=== PATIENT | female | born 1945 | race Caucasian/White ===

== ENCOUNTER 2016-10-22 09:32 | Emergency (ER) | payer MEDICARE ==
[2016-10-22] MEDS ORDERED: MORPHINE SULFATE 10 MG/ML SYRINGE IM STA (10:05)
[2016-10-22] MEDS ORDERED: LIDOCAINE 5% PATCH TOPICAL STA (10:05)
[2016-10-22] MEDS ORDERED: KETOROLAC 30 MG/ML 1 ML VIAL IM STA (10:05)
--- NOTE | 2016-10-22 10:16 | ED ---
Back Pain HPI - General Chief Complaint: Back Pain/Injury Stated Complaint: Lower back pain Time Seen by Provider: 10/22/16 09:57 Source: patient Limitations: no limitations - History of Present Illness Initial Comments: This is a 70-year-old female with a recent right knee surgery who presents emergency department for left lower back pain for the last 9 days. She states that she does not recall any injury. It is worse with any movement. She is follow up with her orthopedic surgeon and primary doctor for this. Her orthopedic surgeon did an x-ray of her back which showed arthritis. He started her on dexamethasone, Percocet, Flexeril and she has not had any relief. She got a cortisone shot yesterday in her primary doctor's office which also has not improved her symptoms. She denies any numbness or tingling or weakness in her extremities. No shooting pains. She states that the pain is located in the left lateral lumbar region and does not radiate. She denies any loss of bowel or bladder function or saddle anesthesia. She denies any other complaints. - Related Data Home Medications Medication Instructions Recorded Confirmed Aspirin 81 mg PO DAILY 06/01/14 10/22/16 Cyanocobalamin [Vitamin B-12] 1,000 mcg PO DAILY 06/01/14 10/22/16 Hydrochlorothiazide [Hydrodiuril] 25 mg PO DAILY 06/01/14 10/22/16 Losartan Potassium 100 mg PO DAILY 06/01/14 10/22/16 Melatonin 3 mg PO HS 06/01/14 10/22/16 Metoprolol Tartrate [Lopressor] 50 mg PO DAILY 06/01/14 10/22/16 Omeprazole 40 mg PO DAILY 06/01/14 10/22/16 Oxybutynin Chloride [Ditropan] 5 mg PO BID 06/01/14 10/22/16 Sertraline [Zoloft] 50 mg PO DAILY 06/01/14 10/22/16 metFORMIN HCL [Glucophage] 500 mg PO DAILY 06/01/14 10/22/16 traZODone HCL [Desyrel] 50 mg PO HS 06/01/14 10/22/16 Cyclobenzaprine [Flexeril] 5 mg PO BID PRN 10/22/16 10/22/16 Dexamethasone 0.75 mg PO BID 10/22/16 10/22/16 Gabapentin [Neurontin] 300 mg PO BID 10/22/16 10/22/16 oxyCODONE-APAP 5-325MG [Percocet 1 tab PO Q4HR PRN 10/22/16 10/22/16 5-325 mg] Previous Rx's Medication Instructions Recorded Lidocaine 5% Patch [Lidoderm] 1 patch TOPICAL DAILY #10 patch 10/22/16 Allergies Allergy/AdvReac Type Severity Reaction Status Date / Time codeine Allergy Nausea Verified 10/22/16 10:44 Review of Systems ROS Statement: Those systems with pertinent positive or pertinent negative responses have been documented in the HPI. ROS Other: All systems not noted in ROS Statement are negative. Past Medical History Past Medical History: Diabetes Mellitus, GERD/Reflux, Hypertension Additional Past Medical History / Comment(s): , SCIATICA History of Any Multi-Drug Resistant Organisms: MRSA Date of last positivie culture/infection: 03/24/2014 MDRO Source:: Face Past Surgical History: Cholecystectomy, Heart Catheterization, Hysterectomy, Joint Replacement, Tonsillectomy Additional Past Surgical History / Comment(s): TOTAL LEFT KNEE, CARPAL TUNNEL RASHID, BONE REPLACEMENT IN RT WRIST WITH PLATE, LEFT ROTATOR CUFF, CERVICAL NECK SX, ELBOW TENDON SX. BENIGN CYST REMOVED RASHID ARMS AND RT HAND Past Anesthesia/Blood Transfusion Reactions: No Reported Reaction Past Psychological History: Depression Smoking Status: Never smoker Past Alcohol Use History: None Reported Past Drug Use History: None Reported - Past Family History Mother Family Medical History: Cancer Additional Family Medical History / Comment(s): BREAST General Exam - General Exam Comments Initial Comments: Constitutional: Awake alert Appears comfortable Head: Normocephalic atraumatic Eyes: no conjunctival injection No scleral icterus EOMI Neck: No JVD Supple Heart: Regular rate rhythm normal S1-S2 no murmurs Lungs: Clear to auscultation bilaterally No wheezing No rales Abdomen: Soft nondistended nontender Extremities: Non edematous DP pulses intact Radial pulses intact, there is tenderness to palpation in the left lateral lumbar area near the SI joint. No midline tenderness Neuro: A&Ox3 No focal neurologic deficits, 5 out of 5 strength in upper and lower [place] bilaterally specifically with dorsi and plantar flexion of the lower extremities, 2 out of 4 patellar and Achilles reflexes bilaterally, sensation intact to light touch in bilateral lower extremities Psych: Appropriate mood and affect Limitations: no limitations Course Vital Signs 10/22/16 09:43 Temperature 99 F Pulse Rate 69 Respiratory 20 Rate Blood Pressure 147/72 O2 Sat by Pulse 99 Oximetry Medical Decision Making - Medical Decision Making Is a 62-year-old female presents emergency department for low back pain. Computed tomography scan was performed that showed some mild central canal stenosis at L4-L5 with some bilateral foraminal stenosis area and the patient felt improved after medications. There are no emergent neurologic findings on examination. No signs of cauda equina. I'm concerned that the patient may have caused exacerbation of some old low back issues after her knee surgery and walking differently. I feel that she needs physical therapy. She is currently on Percocet, Flexeril, dexamethasone from her primary doctor and the only thing that I would like to add would be Lidoderm patches that she can try. She has an MRI scheduled as an outpatient which she can continue. I told to return if she developed any neurologic symptoms or any worsening symptoms. All questions were answered. Disposition Clinical Impression: Low back pain Disposition: HOME SELF-CARE Condition: Serious Instructions: Acute Low Back Pain (ED) Additional Instructions: Please place the Lidoderm patches on for 12 hours and off for 12 hours. If her insurance does not cover the Lidoderm patches please sweet pickled fruit maker [id number] salon positive patches. Monitor your symptoms for signs of weakness, numbness, trouble with urinating or having bowel movements. Follow up with her primary doctor for physical therapy referral and return if you have worsening symptoms. Prescriptions: Lidocaine 5% Patch [Lidoderm] 1 patch TOPICAL DAILY #10 patch Referrals: Luma Mcconnell DO [Primary Care Provider] - 1-2 days
[2016-10-22] MEDS ORDERED: MORPHINE SULFATE 4 MG/ML SYRINGE IVP STA (10:32)
--- NOTE | 2016-10-22 10:36 | CT ---
EXAMINATION TYPE: CT lumbar spine wo con DATE OF EXAM: 10/22/2016 10:29 AM COMPARISON: NONE HISTORY: Low back pain CT DLP: 565.9 mGycm CONTRAST: Unenhanced CT of the lumbar spine was performed with axial coronal and sagittal images reviewed. Unen hanced CT of the lumbar spine was performed. Bone and soft tissue window settings are submitted as w ell as coronal and sagittal reconstructions. L1-L2: Noted are fusion changes with pedicular screws in place and a decompressive laminectomy noted. Intervertebral body spacers are in place. Streak artifact limits evaluation of this level. L2-L3: Moderate degenerative disc space narrowing. Broad-based posterior disc bulge with encapsulatin g spur resulting in disc endplate complex. Mild effacement ventral thecal sac. No evidence for centra l stenosis. Mild bilateral foraminal encroachment. L3-L4: Mild degenerative disc space narrowing. Mild posterior disc bulge. No evidence for herniation or central stenosis. Foramina are patent. L4-L5: Mild to moderate degenerative disc space narrowing. Grade 1 anterolisthesis L4 and L5 measurin g 5 mm. Circumferential disc bulge with effacement of the ventral thecal sac. There is resultant mild central stenosis. Bilateral foraminal encroachment noted. Facet joint arthropathy seen. No evidence for spondylolysis. L5-S1: Moderate degenerative disc space narrowing.. Broad-based posterior disc bulge. No evidence for disc herniation protrusion or central stenosis. Foramina are patent. No paraspinal masses are identified. Lumbar segments are free of fracture. IMPRESSION: 1. Multilevel degenerative disc disease with central stenosis noted at L4-5. See above.
[2016-10-22] MEDS ORDERED: MORPHINE SULFATE 4 MG/ML SYRINGE IM STA (10:55)
[2016-10-22 11:06] VITALS: BP 135/86; PULSE 83; RESP 18; TEMP 97.8
== END 2016-10-22 11:06 | disposition home or self-care (01) ==
LOC: EC 09:32
DX: M54.5 Low back pain (principal); M48.06 Spinal stenosis, lumbar region; E11.9 Type 2 diabetes mellitus without complications; K21.9 Gastro-esophageal reflux disease without esophagitis; I10 Essential (primary) hypertension; F32.9 Major depressive disorder, single episode, unspecified; Z88.5 Allergy status to narcotic agent; Z79.82 Long term (current) use of aspirin; Z79.899 Other long term (current) drug therapy
CPT/HCPCS: 99284; 96374; 96372 ×2; 72131; J2270; J1885

== ENCOUNTER → 2017-04-22 | Outpatient (CLI) | payer MEDICARE ==
--- NOTE | 2017-04-22 15:46 | US ---
EXAMINATION TYPE: US venous doppler duplex LE RT DATE OF EXAM: 04/22/2017 1:54 PM COMPARISON: 11/17/2015 CLINICAL HISTORY: 71-year-old female I83.11 Varicose veins, M25.561 Pain R leg. SIDE PERFORMED: Right TECHNIQUE: The lower extremity deep venous system is examined utilizing real time linear array sonog lazarus with graded compression, doppler sonography and color-flow sonography. FINDINGS: VESSELS IMAGED: External Iliac Vein (EIV) Common Femoral Vein Deep Femoral Vein Greater Saphenous Vein * Femoral Vein Popliteal Vein Proximal Calf Veins Posterior tibial veins (* superficial vessels) Right Leg: Negative for DVT IMPRESSION: No evidence for DVT within the right lower extremity.
--- NOTE | 2017-04-22 16:00 | US ---
EXAMINATION TYPE: US extremity nonvasc mass RT DATE OF EXAM: 04/22/2017 COMPARISON: NONE CLINICAL HISTORY: 71-year-old female SWELLING. Patient has pain and varicosities right lateral leg. TECHNIQUE: Targeted sonographic examination at the site of pain along the lateral aspect of the right knee and just below the knee. FINDINGS: Targeted scanning shows no evidence for abnormal fluid collection in the superficial soft tissues. Th ere are varicosities just below the knee that are compressible. IMPRESSION: Targeted scanning of the superficial soft tissues lateral aspect of the right knee and just below the knee shows some compressible superficial varicose veins. No abnormal fluid collection.
== END | disposition home or self-care (01) ==
LOC: RADUSWWP 13:13
PROVIDERS: ATTEND Family Medicine
DX: I87.1 Compression of vein (principal); I83.11 Varicose veins of right lower extremity with inflammation

== ENCOUNTER 2018-05-28 06:44 | Day surgery (SDC) | payer MEDICARE ==
[2018-05-26 13:27] VITALS: BMI 28.3
[~2018-05-28 06:44] MED LIST: LACTATED RINGERS 1,000 ML IV SCH; LIDOCAINE 1% 20 ML VIAL (10MG/ML) FOR IV START INTRADERMA PRN
[2018-05-28 07:15] VITALS: TEMP 98.2
[2018-05-28 07:20] LABS: Glucose,Whole Blood 107 mg/dL (75-99)
[2018-05-28] MEDS ORDERED: LACTATED RINGERS 1,000 ML IV ONE ×2 (07:20→08:32)
[2018-05-28] MEDS ORDERED: fentaNYL (PF) 50 MCG/ML 2 ML AMP ONE (07:55)
[2018-05-28] MEDS ORDERED: LIDOCAINE 1% INJ 10MG/ML (20 ML MDV) ONE (07:55)
[2018-05-28] MEDS ORDERED: PROPOFOL 10 MG/ML 20 ML VIAL IV ONE (07:55)
--- NOTE | 2018-05-28 08:35 | P.PCN ---
Date of Procedure: 05/28/18 Procedure(s) Performed: Procedure: Total colonoscopy. Preoperative diagnosis: Screening for neoplasia, patient has history of polyps. Postoperative diagnosis: Exam within normal limits. Preparation: HalfLytely prep. Sedation: Was provided by anesthesia. Brief clinical history: The patient is a 72-year-old female who is scheduled for this evaluation for screening for neoplasia because of history of polyps. The patient had multiple colonoscopies over the years the last was around 3 or 5 years ago. At this time, she has no abdominal complaints, bleeding or anemia. Procedure: With the patient on her left lateral decubitus position and after informed consent and adequate sedation, the perianal area was inspected and it did not show any fissures or fistulas. There were no masses felt on digital rectal examination. The Olympus CFH 190L video colonoscope was then inserted in the rectum in the usual fashion and advanced to the cecum. The preparation was fair with some residual fecal material and fecal debris encountered mostly on the right side and cecum. The mucosa appeared healthy. No obvious polyps or tumors were seen or any obvious diverticular disease. I retroflexed the endoscope in the rectum before the endoscope was withdrawn. The patient tolerated the procedure well. Plan: The patient was reassured. She will follow-up with you as planned and I recommended repeat exam in 5 years.
[2018-05-28 08:41] VITALS: PULSE 53; RESP 18
[2018-05-28 08:52] VITALS: BP 135/80
== END 2018-05-28 09:19 | disposition home or self-care (01) ==
LOC: ORWHC2ENDO 06:44
DX: Z12.11 Encounter for screening for malignant neoplasm of colon (principal); Z86.010 Personal history of colon polyps; E11.9 Type 2 diabetes mellitus without complications; K21.9 Gastro-esophageal reflux disease without esophagitis; I10 Essential (primary) hypertension; Z79.84 Long term (current) use of oral hypoglycemic drugs; Z79.899 Other long term (current) drug therapy; Z88.5 Allergy status to narcotic agent; Z85.828 Personal history of other malignant neoplasm of skin
CPT/HCPCS: J2001; J3010; J2704; G0105

== ENCOUNTER → 2018-08-19 | Outpatient (CLI) | payer MEDICARE ==
--- NOTE | 2018-08-19 12:48 | US ---
EXAMINATION TYPE: US venous doppler duplex LE RT DATE OF EXAM: 08/19/2018 12:34 PM COMPARISON: Right lower extremity venous ultrasound April 22, 2017 CLINICAL HISTORY: Right leg localized swelling R22.41. Pt states right calf pain SIDE PERFORMED: Right TECHNIQUE: The lower extremity deep venous system is examined utilizing real time linear array sonog lazarus with graded compression, doppler sonography and color-flow sonography. VESSELS IMAGED: External Iliac Vein (EIV) Common Femoral Vein Deep Femoral Vein Greater Saphenous Vein * Femoral Vein Popliteal Vein Small Saphenous Vein * Proximal Calf Veins (* superficial vessels) Right Leg: Negative for DVT, complex fluid collection right posterior calf= 7.0 x 2.0 x 3.8 cm Results called to Supriya at Dr's office at time of exam Grayscale, color doppler, spectral doppler imaging performed of the deep veins of the right lower ext remity. There is normal flow, compressibility, vascular waveforms. IMPRESSION: No ultrasound evidence for acute DVT in the right lower extremity. Moderate to large siz e debris-filled popliteal cyst noted towards end of study on current exam.
== END ==
LOC: RADUSWWP 12:14
PROVIDERS: ATTEND Family Medicine
DX: M71.21 Synovial cyst of popliteal space [Baker], right knee (principal)

== ENCOUNTER → 2018-11-19 | Outpatient (CLI) | payer MEDICARE ==
--- NOTE | 2018-11-23 08:39 | MM ---
Reason for exam: screening (asymptomatic). Last mammogram was performed 3 years ago. History: Patient is postmenopausal and has history of other cancer at age 69. Family history of breast cancer in mother at age 60. Took estrogen for 30 years beginning at age 32. Physical Findings: A clinical breast exam by your physician is recommended on an annual basis and results should be correlated with mammographic findings. MG 3D Screening Mammo W/Cad Bilateral CC and MLO view(s) were taken. Prior study comparison: November 09, 2015, bilateral MG 3d screening mammo w/cad. October 25, 2013, bilateral MG screening mammo w CAD. There are scattered fibroglandular densities. No significant changes when compared with prior studies. ASSESSMENT: Benign, BI-RAD 2 RECOMMENDATION: Routine screening mammogram of both breasts in 1 year.
== END | disposition home or self-care (01) ==
LOC: RADMAMWWP 09:38
PROVIDERS: ATTEND Family Medicine
DX: Z12.31 Encounter for screening mammogram for malignant neoplasm of breast (principal)
CPT/HCPCS: 77063; 77067

== ENCOUNTER 2019-01-21 16:23 | Inpatient (IN) | payer MEDICARE ==
[2019-01-21] MEDS ORDERED: SODIUM CHLORIDE 0.9% 1,000 ML IV STA (16:41)
--- NOTE | 2019-01-21 16:50 | ED ---
Dizziness HPI - General Chief Complaint: Dizziness Stated Complaint: Eye Problems,Wobbly Time Seen by Provider: 01/21/19 16:40 Source: patient, RN notes reviewed, old records reviewed Mode of arrival: wheelchair Limitations: no limitations - History of Present Illness Initial Comments: This is a 73-year-old female the ER for evaluation. Patient sent in the ER for evaluation of weakness and unsteadiness. Patient is refusing sent to ER for evaluation. Patient has no headache no recent change in medications denies nausea vomiting diarrhea no fevers. Patient denies weakness or sensation loss. No recent travel history no sick contacts. MD Complaint: dizziness, difficulty walking -: unknown Timing: gradual onset Description: lightheadedness, off-balance, nausea History of Same: No History of Trauma: No Severity: moderate Improves With: remaining still Worsens With: nothing Associated Symptoms: ataxia, weakness - Related Data Home Medications Medication Instructions Recorded Confirmed Aspirin 81 mg PO DAILY 06/01/14 01/21/19 Hydrochlorothiazide [Hydrodiuril] 25 mg PO DAILY 06/01/14 01/21/19 Metoprolol Tartrate [Lopressor] 50 mg PO BID 06/01/14 01/21/19 Oxybutynin Chloride [Ditropan] 5 mg PO BID 06/01/14 01/21/19 Sertraline [Zoloft] 50 mg PO DAILY 06/01/14 01/21/19 metFORMIN HCL [Glucophage] 500 mg PO DAILY 06/01/14 01/21/19 traZODone HCL [Desyrel] 100 mg PO HS 06/01/14 01/21/19 Atorvastatin Calcium [Lipitor] 10 mg PO DAILY 01/21/19 01/21/19 Loteprednol Etabonate [Inveltys] 1 drop BOTH EYES DAILY 01/21/19 01/21/19 Meloxicam [Mobic] 7.5 mg PO DAILY 01/21/19 01/21/19 Olmesartan Medoxomil [Benicar] 40 mg PO DAILY 01/21/19 01/21/19 Ranitidine HCl [Zantac] 150 mg PO DAILY 01/21/19 01/21/19 Allergies Allergy/AdvReac Type Severity Reaction Status Date / Time codeine AdvReac Nausea Verified 01/21/19 18:09 Review of Systems ROS Statement: Those systems with pertinent positive or pertinent negative responses have been documented in the HPI. ROS Other: All systems not noted in ROS Statement are negative. Past Medical History Past Medical History: Cancer, Diabetes Mellitus, GERD/Reflux, Hypertension Additional Past Medical History / Comment(s): rectal itching,SCIATICA,basal cell CA nose History of Any Multi-Drug Resistant Organisms: MRSA Date of last positivie culture/infection: 03/24/2014 MDRO Source:: Face Past Surgical History: Cholecystectomy, Heart Catheterization, Hysterectomy, Joint Replacement, Tonsillectomy Additional Past Surgical History / Comment(s): Rt shoulder rot cuff 48-43-53-ORIF upper rt arm,TOTAL LEFT KNEE, CARPAL TUNNEL RASHID, BONE REPLACEMENT IN RT WRIST WITH PLATE, LEFT ROTATOR CUFF, CERVICAL NECK SX, ELBOW TENDON SX. BENIGN CYST REMOVED RASHID ARMS AND RT HAND Past Anesthesia/Blood Transfusion Reactions: No Reported Reaction Past Psychological History: Depression Smoking Status: Never smoker Past Alcohol Use History: None Reported Past Drug Use History: None Reported - Past Family History Mother Family Medical History: Cancer Additional Family Medical History / Comment(s): BREAST General Exam - General Exam Comments Initial Comments: NIH of 0 to note nystagmus, heel vizcaino is negative, finger-nose is negative Limitations: no limitations General appearance: alert, in no apparent distress Head exam: Present: atraumatic, normocephalic, normal inspection Eye exam: Present: normal appearance, PERRL, EOMI. Absent: scleral icterus, conjunctival injection, periorbital swelling ENT exam: Present: normal exam, mucous membranes moist Neck exam: Present: normal inspection. Absent: tenderness, meningismus, lymphadenopathy Respiratory exam: Present: normal lung sounds bilaterally. Absent: respiratory distress, wheezes, rales, rhonchi, stridor Cardiovascular Exam: Present: regular rate, normal rhythm, normal heart sounds. Absent: systolic murmur, diastolic murmur, rubs, gallop, clicks GI/Abdominal exam: Present: soft, normal bowel sounds. Absent: distended, tenderness, guarding, rebound, rigid Extremities exam: Present: normal inspection, full ROM, normal capillary refill. Absent: tenderness, pedal edema, joint swelling, calf tenderness Back exam: Present: normal inspection Neurological exam: Present: alert, oriented X3, CN II-XII intact Psychiatric exam: Present: normal affect, normal mood Skin exam: Present: warm, dry, intact, normal color. Absent: rash Course Vital Signs 01/21/19 01/21/19 01/21/19 16:28 17:34 20:08 Temperature 98.0 F Pulse Rate 58 L 60 58 L Respiratory 18 18 18 Rate Blood Pressure 134/72 134/78 128/75 O2 Sat by Pulse 98 97 96 Oximetry - Reevaluation(s) Reevaluation #1: 01/21/19 20:37 Medical records reviewed Reevaluation #2: 01/21/19 20:37 Patient without improvement EKG Findings - EKG Comments: EKG Findings:: EKG shows sinus bradycardia rate of 57, LA 160, QRS 72, QTc 4:30 Medical Decision Making - Medical Decision Making 73 female the ER for evaluation dizziness ataxia unsteady on feet. Patient has normal CT scans here in the ER will admit for continued neurological evaluation and treatment of UTI dehydration low potassium - Lab Data Result diagrams: 01/21/19 17:09 01/21/19 17:09 Lab Results 01/21/19 01/21/19 01/21/19 Range/Units 17:09 17:09 17:09 WBC 8.0 (3.8-10.6) k/uL RBC 4.82 (3.80-5.40) m/uL Hgb 13.7 (11.4-16.0) gm/dL Hct 40.9 (34.0-46.0) % MCV 84.7 (80.0-100.0) fL MCH 28.3 (25.0-35.0) pg MCHC 33.5 (31.0-37.0) g/dL RDW 15.9 H (11.5-15.5) % Plt Count 210 (150-450) k/uL Neutrophils % 70 % Lymphocytes % 19 % Monocytes % 5 % Eosinophils % 4 % Basophils % 0 % Neutrophils # 5.6 (1.3-7.7) k/uL Lymphocytes # 1.5 (1.0-4.8) k/uL Monocytes # 0.4 (0-1.0) k/uL Eosinophils # 0.3 (0-0.7) k/uL Basophils # 0.0 (0-0.2) k/uL PT 9.6 (9.0-12.0) sec INR 0.9 (<1.2) APTT 23.3 (22.0-30.0) sec Sodium 138 (137-145) mmol/L Potassium 3.4 L (3.5-5.1) mmol/L Chloride 98 (98-107) mmol/L Carbon Dioxide 33 H (22-30) mmol/L Anion Gap 7 mmol/L BUN 22 H (7-17) mg/dL Creatinine 0.90 (0.52-1.04) mg/dL Est GFR (CKD-EPI)AfAm 75 (>60 ml/min/1.73 sqM) Est GFR (CKD-EPI)NonAf 65 (>60 ml/min/1.73 sqM) Glucose 109 H (74-99) mg/dL Calcium 9.9 (8.4-10.2) mg/dL Total Bilirubin 0.4 (0.2-1.3) mg/dL AST 30 (14-36) U/L ALT 20 (9-52) U/L Alkaline Phosphatase 65 (38-126) U/L Creatine Kinase 82 (30-135) U/L Troponin I (0.000-0.034) ng/mL Total Protein 7.2 (6.3-8.2) g/dL Albumin 4.2 (3.5-5.0) g/dL Urine Color Urine Appearance (Clear) Urine pH (5.0-8.0) Ur Specific [place] (1.001-1.035) Urine Protein (Negative) Urine Glucose (UA) (Negative) Urine Ketones (Negative) Urine Blood (Negative) Urine Nitrite (Negative) Urine Bilirubin (Negative) Urine Urobilinogen (<2.0) mg/dL Ur Leukocyte Esterase (Negative) Urine RBC (0-5) /hpf Urine WBC (0-5) /hpf Ur Squamous Epith Cells (0-4) /hpf Urine Bacteria (None) /hpf Hyaline Casts (0-2) /lpf Urine Mucus (None) /hpf 01/21/19 01/21/19 Range/Units 17:09 18:02 WBC (3.8-10.6) k/uL RBC (3.80-5.40) m/uL Hgb (11.4-16.0) gm/dL Hct (34.0-46.0) % MCV (80.0-100.0) fL MCH (25.0-35.0) pg MCHC (31.0-37.0) g/dL RDW (11.5-15.5) % Plt Count (150-450) k/uL Neutrophils % % Lymphocytes % % Monocytes % % Eosinophils % % Basophils % % Neutrophils # (1.3-7.7) k/uL Lymphocytes # (1.0-4.8) k/uL Monocytes # (0-1.0) k/uL Eosinophils # (0-0.7) k/uL Basophils # (0-0.2) k/uL PT (9.0-12.0) sec INR (<1.2) APTT (22.0-30.0) sec Sodium (137-145) mmol/L Potassium (3.5-5.1) mmol/L Chloride (98-107) mmol/L Carbon Dioxide (22-30) mmol/L Anion Gap mmol/L BUN (7-17) mg/dL Creatinine (0.52-1.04) mg/dL Est GFR (CKD-EPI)AfAm (>60 ml/min/1.73 sqM) Est GFR (CKD-EPI)NonAf (>60 ml/min/1.73 sqM) Glucose (74-99) mg/dL Calcium (8.4-10.2) mg/dL Total Bilirubin (0.2-1.3) mg/dL AST (14-36) U/L ALT (9-52) U/L Alkaline Phosphatase (38-126) U/L Creatine Kinase (30-135) U/L Troponin I <0.012 (0.000-0.034) ng/mL Total Protein (6.3-8.2) g/dL Albumin (3.5-5.0) g/dL Urine Color Light Yellow Urine Appearance Clear (Clear) Urine pH 7.0 (5.0-8.0) Ur Specific [place] 1.023 (1.001-1.035) Urine Protein Negative (Negative) Urine Glucose (UA) Negative (Negative) Urine Ketones Negative (Negative) Urine Blood Negative (Negative) Urine Nitrite Negative (Negative) Urine Bilirubin Negative (Negative) Urine Urobilinogen <2.0 (<2.0) mg/dL Ur Leukocyte Esterase Large H (Negative) Urine RBC 2 (0-5) /hpf Urine WBC 10 H (0-5) /hpf Ur Squamous Epith Cells <1 (0-4) /hpf Urine Bacteria Rare H (None) /hpf Hyaline Casts 1 (0-2) /lpf Urine Mucus Rare H (None) /hpf - Radiology Data Radiology results: report reviewed (CT brain CTA had not negative for acute disease), image reviewed Disposition Clinical Impression: Dehydration, Dizziness, Ataxia, UTI (urinary tract infection), Hypokalemia Disposition: ADMITTED IP TO THIS [facility] Condition: Good Is patient prescribed a controlled substance at d/c from ED?: No Referrals: Luma Mcconnell DO [Primary Care Provider] - 1-2 days
[2019-01-21 17:27] LABS: Basophils % (A) 0 %; Eosinophils # (A) 0.3 k/uL (0-0.7); Eosinophils % (A) 4 %; HCT 40.9 % (34.0-46.0); HGB 13.7 gm/dL (11.4-16.0); Lymphocytes # (A) 1.5 k/uL (1.0-4.8); Lymphocytes % (A) 19 %; MCH 28.3 pg (25.0-35.0); MCHC 33.5 g/dL (31.0-37.0); MCV 84.7 fL (80.0-100.0); Mean Platelet Volume 7.7; Monocytes # (A) 0.4 k/uL (0-1.0); Monocytes % (A) 5 %; Neutrophils # (A) 5.6 k/uL (1.3-7.7); Neutrophils % (A) 70 %; Platelet Count 210 k/uL (150-450); RBC 4.82 m/uL (3.80-5.40); RDW 15.9 % (11.5-15.5)
[2019-01-21 17:37] LABS: Albumin 4.2 g/dL (3.5-5.0); Calcium 9.9 mg/dL (8.4-10.2); Potassium 3.4 mmol/L (3.5-5.1); Total Bilirubin 0.4 mg/dL (0.2-1.3); Total Protein 7.2 g/dL (6.3-8.2)
[2019-01-21 17:39] LABS: INR 0.9 (<1.2); Partial Thromboplastin Time 23.3 sec (22.0-30.0); Prothrombin Time 9.6 sec (9.0-12.0)
--- NOTE | 2019-01-21 17:49 | XR ---
EXAMINATION TYPE: XR chest 2V DATE OF EXAM: 01/21/2019 COMPARISON: NONE HISTORY: Altered mental status TECHNIQUE: Frontal and lateral views of the chest are obtained. FINDINGS: There is no heart failure nor confluent pneumonic infiltrate. Costophrenic angles are segun r. There are chest leads. Bony thorax is intact. IMPRESSION: No active cardiopulmonary disease.
--- NOTE | 2019-01-21 18:16 | CT ---
EXAMINATION TYPE: CT brain wo con for TPA DATE OF EXAM: 01/21/2019 COMPARISON: 11/01/2011 HISTORY: Unsteady gait, dizziness, confusion. Left orbital swelling. CT DLP: 1091.9 mGycm Automated exposure control for dose reduction was used. FINDINGS: There is mild cerebral atrophy. There is no mass effect nor midline shift. There is no sign of intrac ranial hemorrhage. The calvarium is intact. IMPRESSION: MILD ATROPHY. NO ACUTE INTRACRANIAL ABNORMALITY. NO SIGNIFICANT CHANGE.
--- NOTE | 2019-01-21 18:23 | CT ---
EXAMINATION TYPE: CT angio head neck DATE OF EXAM: 01/21/2019 HISTORY: Unsteady gait, dizziness, confusion. Left orbital swelling. COMPARISON: None CT DLP: 354.9 mGycm. Automated Exposure Control for Dose Reduction was Utilized. TECHNIQUE: CTA scan of the neck is performed with IV Contrast, patient injected with 50 mL of Isovue 370, axial images are obtained, coronal and sagittal reformatted images are reviewed. Three-D recons tructed images are created on an independent workstation and reviewed. FINDINGS: There is normal branching pattern of the great vessels on the aortic arch. There is bilateral arteria l flow in the subclavian arteries. Thoracic aorta is atheromatous. There is no aortic aneurysm or dis section at the arch. There is arterial flow in both vertebral arteries which are fairly symmetric. There is arterial flow in the common internal and external carotid arteries bilaterally. There is wide patency of the caroti d artery bifurcations. There is no evidence of carotid or vertebral artery aneurysm or dissection. There is arterial flow in the anterior middle and posterior cerebral arteries. There is mild enlargem ent of the tip of the basilar artery that measures 4 mm. I see no evidence of hemodynamic arterial st enosis. There is normal contrast opacification of the venous sinuses. IMPRESSION: Negative CT angiogram of the neck. 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 There is some asymmetric enlargement of the left thyroid lobe compared to the right consistent with m ultinodular goiter. There are multiple hypodense areas in the left thyroid lobe.
[2019-01-21 18:33] LABS: Appearance,Urine Clear (Clear); Bacteria,Urine Rare /hpf; Bilirubin,Urine Negative (Negative); Blood,Urine Negative (Negative); Color,Urine Light Yellow; Glucose,Urine (UA) Negative (Negative); Hyaline Casts,Urine 1 /lpf (0-2); Ketones,Urine Negative (Negative); Leukocyte Esterase,Urine Large (Negative); Mucus,Urine Rare /hpf; Nitrite,Urine Negative (Negative); Protein,Urine Negative (Negative); RBC,Urine 2 /hpf (0-5); Specific Gravity,Urine 1.023 (1.001-1.035); Squamous Epithelial Cell,Urine <1 /hpf (0-4); Urobilinogen,Urine <2.0 mg/dL (<2.0); WBC,Urine 10 /hpf (0-5)
[2019-01-21] MEDS ORDERED: ASPIRIN 325 MG TAB PO STA (20:34)
[2019-01-21] MEDS ORDERED: POTASSIUM CHLORIDE 20 MEQ in WATER FOR INJECTION 1 100ML.BAG IVPB STA (20:36)
[2019-01-21] MEDS ORDERED: POTASSIUM BICARBONATE/CIT AC 20 MEQ TABLET.EFF PO ONE (20:36)
[2019-01-21] MEDS: SODIUM CHLORIDE 0.9% 1,000 ML IV SCH (21:24)
[2019-01-21 23:29] VITALS: BMI 28.3
[2019-01-22] MEDS: ACETAMINOPHEN TAB 325 MG TAB PO PRN ×2 (03:25→20:57)
[2019-01-22] MEDS: traZODone HCL 50 MG TAB PO SCH ×2 (04:19→21:32)
[2019-01-22 07:56] LABS: Glucose,Whole Blood 77 mg/dL (75-99)
[2019-01-22] MEDS: SODIUM CHLORIDE 0.9% 1,000 ML IV SCH ×2 (08:37→17:15)
[2019-01-22 09:57] LABS: HCT 39.6 % (34.0-46.0); HGB 12.9 gm/dL (11.4-16.0); MCHC 32.5 g/dL (31.0-37.0); MCV 86.1 fL (80.0-100.0); Mean Platelet Volume 7.7; Platelet Count 194 k/uL (150-450); RDW 15.2 % (11.5-15.5); WBC 5.5 k/uL (3.8-10.6)
[2019-01-22 10:10] LABS: ALT 28 U/L (9-52); AST 42 U/L (14-36); African American GFR (CKD) >90 (>60 ml/min/1.73 sqM); Albumin 3.6 g/dL (3.5-5.0); Alkaline Phosphatase 47 U/L (38-126); Anion Gap 6 mmol/L; Blood Urea Nitrogen 16 mg/dL (7-17); Carbon Dioxide 29 mmol/L (22-30); Chloride 103 mmol/L (98-107); Glucose 85 mg/dL (74-99); Sodium 138 mmol/L (137-145); Total Bilirubin 0.7 mg/dL (0.2-1.3); Total Protein 6.5 g/dL (6.3-8.2)
[2019-01-22 10:19] LABS: Potassium 4.5 mmol/L (3.5-5.1)
[2019-01-22 10:29] LABS: Glucose,Whole Blood 101 mg/dL (75-99)
--- NOTE | 2019-01-22 11:12 | CT ---
EXAMINATION TYPE: CT brain wo con for TPA DATE OF EXAM: 01/22/2019 HISTORY: Patient poor historian. Neurodeficits. Automated Exposure Control for Dose Reduction was Utilized. TECHNIQUE: CT scan of the head is performed without contrast. COMPARISON: CT head from one day earlier. FINDINGS: There is no acute intracranial hemorrhage or midline shift identified. There is diffuse v entricular and sulcal prominence consistent with diffuse age-related cerebral atrophy. There is low- attenuation in the periventricular white matter consistent with chronic small vessel ischemic change. The globes are intact and the visualized sinuses are clear. IMPRESSION: No acute intracranial hemorrhage or midline shift. There is mild diffuse age-related ce rebral atrophy and chronic small vessel ischemic change demonstrated. No significant change from CT o ne day earlier.
[2019-01-22 11:24] LABS: Eosinophils # (M) 0.22 k/uL (0-0.7); Lymphocytes # (M) 1.54 k/uL (1.0-4.8); Monocytes # (M) 0.72 k/uL (0-1.0); Neutrophils % (M) 55 %; Nucleated Red Blood Cells 0 /100 WBC (0-0); Poikilocytosis (M) Present; Total Cells Counted 100
[2019-01-22 11:40] LABS: Glucose,Whole Blood 85 mg/dL (75-99)
[2019-01-22 11:43] LABS: INR 0.9 (<1.2); Partial Thromboplastin Time 23.9 sec (22.0-30.0); Prothrombin Time 9.8 sec (9.0-12.0)
--- NOTE | 2019-01-22 12:14 | CT ---
EXAMINATION TYPE: CT angio head neck DATE OF EXAM: 01/22/2019 HISTORY: Dizziness, ataxia, hypokalemia and UTI COMPARISON: CTA head and neck are from one day earlier. CT DLP: 1559 mGycm. Automated Exposure Control for Dose Reduction was Utilized. TECHNIQUE: CTA scan of the head and neck are performed without and with IV Contrast, patient injecte d with 50 ml mL of Isovue 370, axial images are obtained, coronal and sagittal reformatted images are reviewed. Three-D reconstructed images are created on an independent workstation and reviewed. FINDINGS: Carotid/Vascular Structures: Three-vessel origin from aortic arch is redemonstrated. No significant p laque or stenosis is seen. Right common carotid artery shows normal origin from right brachiocephalic artery. There is no significant plaque or stenosis in the common or internal carotid arteries bilate rally. External carotid arteries are seen bilaterally without significant plaque or stenosis. There is codominant vertebrobasilar system. Vertebral arteries are patent to basilar junction. There is no significant focal stenosis or aneurysmal change in the posterior circulation. There is slight p rominence of basilar tip favoring dolichoectasia. No definitive aneurysm. Hypoplastic bilateral poste rior communicating arteries are seen. There is patent anterior communicating artery. No significant s tenosis or aneurysmal change identified. Other: Asymmetric enlargement of left thyroid lobe is redemonstrated, lower pole nodules may be prese nt. Moderate to severe disc space narrowing with possible bony ankylosis C5-C6 level. Moderate to advance d disc space narrowing C6-C7 level. IMPRESSION: 1. No significant change from CTA performed less than 24 hours earlier.
--- NOTE | 2019-01-22 15:34 | CONS ---
CONSULTATION PULMONARY/CRITICAL CARE CONSULTATION: DATE OF CONSULTATION: 01/22/2019 This is a 73-year-old female who presented to the emergency room yesterday with complaints of dizziness and being wobbly. She was evaluated in the emergency room, admitted with a diagnosis of dizziness and possible urinary tract infection. The patient was moved to the ICU this morning after code stroke was called. She appeared to have some weakness on the right side of her body. Neurology has been consulted. Her scanning thus far have been negative. She is relatively comfortable. She is on O2 at 2 L. She is getting 0.9 at 100 mL an hour. She does have a history of hypertension and diabetes. The patient denies any chest pain, chest discomfort, difficulty breathing, coughing, wheezing, or phlegm production. She denies any chest pain or chest discomfort. There is no nausea, vomiting or diarrhea. HOME MEDICATIONS: Include aspirin, hydrochlorothiazide, metoprolol, Ditropan, Zoloft, Glucophage, Desyrel, Lipitor, Mobic, Benicar and ranitidine. ALLERGIES: CODEINE. PAST MEDICAL HISTORY: Positive for basal cell cancer of the nose, diabetes mellitus, hypertension, gastroesophageal reflux disease, and rectal itching. She also suffers from sciatica. She has had a previous MRSA infection. SURGICAL HISTORY: Includes cholecystectomy, heart catheterization, hysterectomy, joint replacement, tonsillectomy. She had right rotator cuff surgery 2017. She also had an open reduction, internal fixation over her right upper arm. She has had left total knee arthroplasty, carpal tunnel syndrome surgically corrected bilaterally. Bone replacement in the right wrist plate, left rotator cuff surgery and cervical surgery and some benign cysts being removed from her bilateral arms and right hand. SOCIAL HISTORY: Negative for tobacco use. No alcohol use or illicit drug use. FAMILY HISTORY: Mother had a history of breast cancer. Father was healthy. REVIEW OF SYSTEMS: CONSTITUTIONAL: Negative. NEUROLOGIC: Right-sided weakness, dizziness, lightheadedness. HEENT: Negative. CARDIOVASCULAR: Negative. PULMONARY: Negative. GI: Negative. : Negative. RHEUMATOLOGIC: Negative. IMMUNOLOGIC: Negative. ENDOCRINOLOGIC: Negative. DERMATOLOGIC: Negative. PHYSICAL EXAMINATION: Current vital signs are reviewed. Temperature is 98 degrees, heart rate is 70, respiratory rate 15, BP is 163/88, mean being 100. Saturations are 100% on 2 L. Appears in no acute distress. Looks well. HEENT: Examination is grossly unremarkable. There may be some right-sided facial asymmetry. NECK: Supple. Full range of motion. No adenopathy or thyromegaly. Neck veins are flat. CARDIOVASCULAR: Examination reveals regular rhythm and rate. Heart rate about 70 beats per minute. S1, S2 normal. No murmur. LUNGS: Reveal mostly clear breath sounds. No wheezes, rhonchi, or crackles. ABDOMEN: Soft. Bowel sounds are heard. EXTREMITIES reveal some right-sided weakness. No cyanosis or clubbing. SKIN: Without rash. The rest of the examination is unremarkable. LABS: Reviewed. White count 5.5, hemoglobin 12 9, hematocrit 39.6, platelet count 194,000, PT, INR, PTT all normal, sodium 138, potassium 4.5, chloride is normal. CO2 is 29, anion gap is 16. The rest of her evaluation was negative. Leukocyte esterase was largely positive. There is 253 WBCs and bacteria were rare. Medications are reviewed. She is on Tylenol, aspirin, Rocephin and an IV of 0.9 at 100 mL an hour. She is also on Desyrel at bedtime. ASSESSMENT: 1. Rule out left-sided cerebrovascular accident with right-sided weakness. 2. History of skin cancer, basal cell type. 3. Diabetes mellitus. 4. Gastroesophageal reflux disease. 5. Hypertension. 6. Rectal itching. 7. Sciatic neuralgia. 8. Multiple previous surgical procedures. PLAN: The patient is resting comfortably here in the ICU. No critical care issues at this time. Respiratory status is stable. Hemodynamic status is stable. Neurology did see the patient. Will continue to follow. Prognosis is guarded. MMODL / IJN: [id number] / [facility]
[2019-01-22] MEDS: TOBRAMYCIN 0.3% OPHTH DROPS 5 ML BTL BOTH EYES SCH ×2 (17:15→18:16)
--- NOTE | 2019-01-22 17:38 | MR ---
EXAMINATION TYPE: MR brain wo con DATE OF EXAM: 01/22/2019 COMPARISON: None HISTORY: stroke symptoms, CT on pacs Standard multiplanar, multisequence MRI departmental protocol Multiplanar, multisequence images of the brain were acquired. Diffusion weighted imaging was performe d. FINDINGS: There is some cerebral cortical atrophy. There is no mass effect nor midline shift. There i s no sign of intracranial hemorrhage. There is no evidence of cortical infarct. On the FLAIR images t here are scattered areas of increased signal at the mayers-white matter junction of both cerebral hemis pheres. This is more noticeable in the right parietal lobe. These measure up to 7 mm. Total number is approximately 15. The brainstem is intact. Corpus callosum is intact. Sella turcica appears normal. IMPRESSION: White matter multiple foci more noticeable in the right parietal lobe more likely related to chronic small vessel ischemia. Demyelinating disease not entirely excluded. No evidence of cortical infarct.
--- NOTE | 2019-01-22 19:11 | ECHOF ---
Referral Reason:Thrombus MEASUREMENTS -------- HEIGHT: 152.4 cm WEIGHT: 68.0 kg BP: 146/75 RVIDd: 3.1 cm (< 3.3) IVSd: 1.1 cm (0.6 - 1.1) LVIDd: 4.7 cm (3.9 - 5.3) LVPWd: 1.0 cm (0.6 - 1.1) IVSs: 1.5 cm LVIDs: 3.2 cm LVPWs: 1.1 cm LA Diam: 3.0 cm (2.7 - 3.8) LAESV Index (A-L): 31.80 ml/m Ao Diam: 2.7 cm (2.0 - 3.7) AV Cusp: 1.7 cm (1.5 - 2.6) LA Diam: 3.9 cm (2.7 - 3.8) MV EXCURSION: 14.230 mm (> 18.000) MV EF SLOPE: 63 mm/s (70 - 150) EPSS: 0.2 cm MV E Gabriel: 0.45 m/s MV DecT: 192 ms MV A Gabriel: 0.59 m/s MV E/A Ratio: 0.75 RAP: 5.00 mmHg RVSP: 12.32 mmHg FINDINGS -------- Sinus rhythm. This was a technically good study. LV size, wall thickness and systolic function are normal, with an EF greater than 55%. The left freeman tricular size is normal. The right ventricle is normal in size. The left atrial size is normal. The right atrial size is normal. There is mild aortic valve sclerosis. There is no evidence of aortic regurgitation. Mild mitral annular calcification present. Mild mitral regurgitation is present. Mild tricuspid regurgitation present. There is no evidence of pulmonary hypertension. The right v entricular systolic pressure, as measured by Doppler, is 12.32mmHg. There is no pulmonic regurgitation present. The aortic root size is normal. There is no pericardial effusion. CONCLUSIONS -------- 1. Sinus rhythm. 2. This was a technically good study. 3. LV size, wall thickness and systolic function are normal, with an EF greater than 55%. 4. The left ventricular size is normal. 5. The right ventricle is normal in size. 6. The left atrial size is normal. 7. The right atrial size is normal. 8. There is mild aortic valve sclerosis. 9. Mild mitral annular calcification present. 10. Mild mitral regurgitation is present. 11. Mild tricuspid regurgitation present. 12. There is no evidence of pulmonary hypertension. 13. The right ventricular systolic pressure, as measured by Doppler, is 12.32mmHg. 14. There is no pulmonic regurgitation present. 15. The aortic root size is normal. 16. There is no pericardial effusion. VENDOR MANAGEMENT SPECIALIST: Farnaz Soriano RDCS
[2019-01-22] MEDS: ONDANSETRON 4 MG/2 ML VIAL IVP PRN (20:57)
[2019-01-22] MEDS: ASPIRIN 325 MG TAB PO SCH (20:58)
[2019-01-22] MEDS: HEPARIN SODIUM,PORCINE 5,000 UNIT/ML 1 ML VIAL SQ SCH (20:58)
[2019-01-22] MEDS ORDERED: traZODone HCL 50 MG TAB PO SCH (21:00)
--- NOTE | 2019-01-22 21:04 | HP ---
HISTORY AND PHYSICAL DATE OF SERVICE: 01/22/2019. CHIEF COMPLAINT: Dizziness. HISTORY OF PRESENT ILLNESS: This 73-year-old woman with a past medical history of diabetes, GERD, hypertension, history of cholecystectomy, cardiac catheterization, history of depression, being followed by Dr. Mcconnell in the outpatient setting, was having some weakness and unsteadiness. The patient apparently was in the ER for evaluation, but subsequently patient presented to the ER and the patient had complete workup initially with CT scan and angiography which was negative. The patient subsequently had another episode of weakness this morning and CODE STROKE was called and repeat CT scan of the brain and angio CT was done which also did not show any acute abnormalities. Neurology consultation in progress. The patient is currently drowsy, complains of generalized weakness, but unable to cooperate minimally to the exam and most of the history taken from my discussion with staff and review of the chart at this time. PAST MEDICAL HISTORY: Past medical history of diabetes type 2, GERD, hypertension, history of rectal bleeding, history of MRSA, cardiac catheterization. MEDICATIONS: Prior to admission home medications are: 1. Desyrel 100 mg p.o. q.h.s. 2. Glucophage 500 mg p.o. daily. 3. Zoloft 50 mg. 4. Zantac 150 mg. 5. Ditropan 5 mg p.o. b.i.d. 6. Benicar 40 mg p.o. daily. 7. Lopressor 50 mg p.o. b.i.d. 8. Mobic 7.5 p.o. daily. 9. Inveltys 1 drop both eyes daily. 10.HydroDIURIL 25 mg b.i.d. 11.Lipitor 10 mg p.o. daily. 12.Aspirin 81 mg daily. ALLERGIES: CODEINE. FAMILY HISTORY: History of breast cancer in the family. SOCIAL HISTORY: No history of smoking. No history of alcohol intake. REVIEW OF SYSTEMS: Could not be taken. The patient is mildly confused at this time. PHYSICAL EXAM: Pulse is 72. Blood pressure 135/75, respiration 20, temperature 98.2, pulse ox 98% on room air. HEENT: Conjunctivae normal. Oral mucosa moist. Minimal swelling of the left eye, status post recent cataract surgery. NECK is no jugular venous distention. No carotid bruit. No lymph node enlargement. CARDIOVASCULAR: S1, S2 muffled. No S3, no S4. RESPIRATORY: Breath sounds diminished in the bases. A few scattered rhonchi. No crackles. ABDOMEN: Soft, nontender. LEGS no edema. NERVOUS SYSTEM: Diffusely weak and some mildly bilateral incoordination also present. SKIN: No ulcer. No rash. No bleeding. JOINTS: No active deforming arthropathy. LABS: CBC within normal limits. Sodium 130. Potassium 4.5. ASSESSMENT: 1. Generalized weakness and incoordination, possibly acute stroke, rule out cerebellar stroke. Rule out left-sided cerebrovascular accident with right-sided weakness. 2. Diabetes type 2. 3. Gastroesophageal reflux disease. 4. Hypertension. 5. History of sciatica. 6. History of MRSA. 7. History of cholecystectomy. 8. History of cardiac catheterization. 9. History of degenerative joint disease. 10.History of depression. RECOMMENDATIONS AND DISCUSSION: In this 73-year-old woman who presented with multiple complex medical issues, at this time, I recommend to continue current medications, management and symptomatic treatment. Continue the antiplatelet agents. Continue with Lipitor. Otherwise neurology consultation. The patient will be transferred to ICU for further management. Dr. Mahajan will be consulted for ICU management. Otherwise CODE STROKE was also called. We will monitor the hemodynamics and continue to monitor. Further recommendations to follow. Repeat labs will be ordered. A copy of this dictation being forwarded to Dr. Mcconnell who is the primary physician. FLY / SATINDER: [id number] / MTDD
[2019-01-23] MEDS: TOBRAMYCIN 0.3% OPHTH DROPS 5 ML BTL BOTH EYES SCH ×4 (00:07→18:32)
[2019-01-23] MEDS: SODIUM CHLORIDE 0.9% 1,000 ML IV SCH ×2 (04:17→14:00)
[2019-01-23 04:32] LABS: Appearance,Urine Clear (Clear); Bacteria,Urine Rare /hpf; Bilirubin,Urine Negative (Negative); Blood,Urine Trace (Negative); Color,Urine Light Yellow; Glucose,Urine (UA) Negative (Negative); Ketones,Urine 1+ (Negative); Leukocyte Esterase,Urine Moderate (Negative); Mucus,Urine Rare /hpf; Nitrite,Urine Negative (Negative); Protein,Urine Negative (Negative); RBC,Urine 2 /hpf (0-5); Specific Gravity,Urine 1.013 (1.001-1.035); Squamous Epithelial Cell,Urine <1 /hpf (0-4); Urobilinogen,Urine <2.0 mg/dL (<2.0); WBC,Urine 7 /hpf (0-5)
[2019-01-23] MEDS: ACETAMINOPHEN TAB 325 MG TAB PO PRN (04:42)
[2019-01-23 04:57] LABS: Basophils % (A) 1 %; Eosinophils # (A) 0.3 k/uL (0-0.7); Eosinophils % (A) 6 %; HGB 13.7 gm/dL (11.4-16.0); Lymphocytes # (A) 1.1 k/uL (1.0-4.8); Lymphocytes % (A) 21 %; MCH 27.7 pg (25.0-35.0); MCHC 31.8 g/dL (31.0-37.0); MCV 87.1 fL (80.0-100.0); Mean Platelet Volume 7.7; Monocytes # (A) 0.3 k/uL (0-1.0); Monocytes % (A) 6 %; Neutrophils # (A) 3.5 k/uL (1.3-7.7); Neutrophils % (A) 65 %; Platelet Count 198 k/uL (150-450); RBC 4.94 m/uL (3.80-5.40); RDW 14.9 % (11.5-15.5); WBC 5.4 k/uL (3.8-10.6)
[2019-01-23 05:08] LABS: African American GFR (CKD) >90 (>60 ml/min/1.73 sqM); Anion Gap 7 mmol/L; Blood Urea Nitrogen 14 mg/dL (7-17); Calcium 9.1 mg/dL (8.4-10.2); Carbon Dioxide 27 mmol/L (22-30); Chloride 103 mmol/L (98-107); Cholesterol 124 mg/dL (<200); Glucose 85 mg/dL (74-99); HDL Cholesterol 52 mg/dL (40-60); LDL Cholesterol,Calculated 49 mg/dL (0-99); Magnesium 1.7 mg/dL (1.6-2.3); Potassium 3.8 mmol/L (3.5-5.1); Sodium 137 mmol/L (137-145); Triglycerides 114 mg/dL (<150)
--- NOTE | 2019-01-23 06:29 | P.CNNES ---
History of Present Illness Consult date: 01/22/19 Reason for Consult: R-sided weakness, ataxia, dizziness Chief complaint: R-sided weakness, ataxia, dizziness History of Present Illness: REFERRING PHYSICIAN: Dr. Maldonado Hernández HISTORY OF PRESENT ILLNESS: Thank you for allowing me to evaluate Ms. Hannah Shah. Ms. Shah is a R-handed 73 year-old woman with PMhx of Basal cell cancer of the nose, diabetes, hypertension, GERD, recent cataract surgery, recent right shoulder surgery about a year ago who presented to [facility] for episodes of gait instability. Patient's sister, daughter and granddaughter at bedside. They state that patient lives with her . She was at her clinic when she had some dysequilibrium when she got up to walk. No loss of consciousness. Patient denies any headache, nausea, vomiting, focal weakness, numbness or tingling. No recent sickness, fever, abdominal pain, constipation, or diarrhea. Patient recently travelled to [facility] with her family where they stayed at a [employer] hotel (?). Patient did not go hiking. did not complain of any bites. Pt with some headaches occasionally but no photophobia or phonophobia, nausea or vomiting associated with it. Pt is having difficulty opening her eyes today due to pain when she opens her L eye specifically. Today, stroke code was called for this patient. LKWT 8:30am. Pt was participating with therapy when her leg gave out and almost fell. CTA was patent with no significant stenosis. tPA not given and patient not a candidate for thrombectomy. Patient was noted to have R-sided weakness since last night per daughter and granddaughter and sister. PAST MEDICAL HISTORY: Basal cell cancer of the nose, diabetes, hypertension, GERD, recent cataract surgery, recent right shoulder surgery about a year ago PAST SURGICAL HISTORY: Cholecystectomy, heart catheterization, hysterectomy, joint replacement, tonsillectomy, right rotator cuff surgery in 2018. Left total knee arthropla sty, carpal tunnel syndrome surgically corrected bilaterally. HOME MEDICATIONS: Aspirin, hydrochlorothiazide, metoprolol, Zoloft, Lipitor, ranitidine, trazodone, metformin 500 mg daily, oxybutynin 5 mg twice a day ALLERGIES: Codeine SOCIAL HISTORY: Family denies patient never having smoking, drug abuse, alcohol abuse history. FAMILY HISTORY: Mother had breast cancer and from stroke. REVIEW OF SYSTEMS: The 14 systems are reviewed and no additional points are identified compared to the review of systems documented history and physical PHYSICAL EXAMINATION: VITAL SIGNS: Temperature 98.2 pulse rate 72 respiratory 20 blood pressure 135/75 O2 saturation 98% on room air GEN.: NAD, cooperative but drowsy and having difficulty opening her eye due to p ain. Some erythema and swelling noted on L eye HEENT: NCAT, sclera without icterus NECK: Supple SKIN AND EXTREMITIES: Warm to touch, no edema NEURO: MENTAL STATUS: Patient alert and oriented to self, place, and time. Able to name the current president. Speech fluent, able to name and repeat, following all commands readily. CRANIAL NERVES II THROUGH XII: II: Pupils are equal and reactive to light symmetrically. Blinks to threat bilaterally. III, IV, : No ptosis. Ext raocular movements full. No nystagmus. V: Facial sensation intact from V1-3. VII. No clear facial asymmetry. VIII: Hearing intact to finger rub bilaterally. IX, X: Symmetric palate elevation. XII: Shoulder shrug intact. XII: Tongue midline without fasciculation or atrophy. MOTOR: Normal bulk/tone. No pronator drift or tremor. Strength is 4+/5 in left upper and lower extremities. 3/5 in right upper and lower extremities. Right upper extremity strength is limited due to pain. SENSORY: Intact to light touch, temperature in all 4 extremities. REFLEXES: 2+ throughout. Toes are downgoing. COORDINATION: Finger to nose vizcaino intact although with some difficulty due to patient having difficulty opening her eyes from pain. No dysmetria. GAIT: Deferred DIAGNOSTIC TESTING: LABORATORY: WBC 5.5 mg with 0.9 platelets 194 PT 9.8 INR 0.9 sodium 138 potassium 4.5 chlo ride 103 bicarb 29 BUN 16 creatinine 0.71 glucose 85 AST 42 ALT 28 alk phos 47 troponins <0.012 IMAGING: MRI brain without contrast 01/22/2019: White matter multiple foci more noticeable in the right parietal lobe more likely related to chronic small vessel ischemia. No evidence of cortical infarct. CTA head and neck without contrast 01/21/2019: Negative CTA of the head and neck. There is some asymmetric enlargement of the left thyroid lobe compared to the right consistent with multinodular goiter. There are multiple hypointense areas in the left thyroid CT head without contrast 01/21/2019: Mild atrophy. No acute intracranial abnormality. No significant change. ASSESSMENT and RECOMMENDATIONS: Ms. Shah is a R-handed 73 year-old woman with PMhx of Basal cell cancer of the nose, diabetes, hypertension, GERD, recent cataract surgery, recent right shoulder surgery about a year ago who presented to [facility] for episodes of gait instability, found with R-sided weakness with a stroke code. MRI brain w/o contrast showing no evidence of acute infarct. Patient has had R shoulder surgery, undergoing therapy, which may be causing her R-sided weakness as her movement is limited by pain but family state that patient was able to do all activities of daily living without much complaints with her R arm. Difficult to explain her R-sided leg weakness. If patient complains of any headache along with migranious symptoms such photophobia, phonophobia, nausea or vomiting, can consider giving migraine cocktail with MgSulfate IV 2g, IVF 1L bolus, Toradol and Compazine. Neurology will continue to follow if patient still in-house on Friday. Feel free to [employer] message me over the weekend with any questions or concerns. Past Medical History Past Medical History: Cancer, Diabetes Mellitus, GERD/Reflux, Hypertension Additional Past Medical History / Comment(s): rectal itching,SCIATICA,basal cell CA nose History of Any Multi-Drug Resistant Organisms: MRSA Date of last positivie culture/infection: 03/24/2014 MDRO Source:: Face Past Surgical History: Cholecystectomy, Heart Catheterization, Hysterectomy, Joint Replacement, Tonsillectomy Additional Past Surgical History / Comment(s): Rt shoulder rot cuff 04-09-18-ORIF upper rt arm,TOTAL LEFT KNEE, CARPAL TUNNEL RASHID, BONE REPLACEMENT IN RT WRIST WITH PLATE, LEFT ROTATOR CUFF, CERVICAL NECK SX, ELBOW TENDON SX. BENIGN CYST REMOVED RASHID ARMS AND RT HAND Past Anesthesia/Blood Transfusion Reactions: No Reported Reaction Past Psychological History: Depression Smoking Status: Never smoker Past Alcohol Use History: None Reported Past Drug Use History: None Reported - Past Family History Mother Family Medical History: Cancer Additional Family Medical History / Comment(s): BREAST Medications and Allergies Home Medications Medication Instructions Recorded Confirmed Type Aspirin 81 mg PO DAILY 06/01/14 01/21/19 History Hydrochlorothiazide [Hydrodiuril] 25 mg PO DAILY 06/01/14 01/21/19 History Metoprolol Tartrate [Lopressor] 50 mg PO BID 06/01/14 01/21/19 History Oxybutynin Chloride [Ditropan] 5 mg PO BID 06/01/14 01/21/19 History Sertraline [Zoloft] 50 mg PO DAILY 06/01/14 01/21/19 History metFORMIN HCL [Glucophage] 500 mg PO DAILY 06/01/14 01/21/19 History traZODone HCL [Desyrel] 100 mg PO HS 06/01/14 01/21/19 History Atorvastatin Calcium [Lipitor] 10 mg PO DAILY 01/21/19 01/21/19 History Loteprednol Etabonate [Inveltys] 1 drop BOTH EYES DAILY 01/21/19 01/21/19 History Meloxicam [Mobic] 7.5 mg PO DAILY 01/21/19 01/21/19 History Olmesartan Medoxomil [Benicar] 40 mg PO DAILY 01/21/19 01/21/19 History Ranitidine HCl [Zantac] 150 mg PO DAILY 01/21/19 01/21/19 History Allergies Allergy/AdvReac Type Severity Reaction Status Date / Time codeine AdvReac Nausea Verified 01/21/19 18:09 Physical Examination - Vital Signs Vital Signs: Vital Signs Temp Pulse Pulse Resp BP BP Pulse Ox 01/22/19 17:00 71 15 126/68 97 01/22/19 16:00 98.2 F 72 20 135/75 98 01/22/19 15:30 70 14 132/75 99 01/22/19 15:00 87 23 130/77 98 01/22/19 14:30 65 20 151/81 99 01/22/19 14:00 71 25 H 148/85 99 01/22/19 13:45 63 17 137/77 99 01/22/19 13:37 99 01/22/19 13:30 63 8 L 145/96 99 01/22/19 13:15 74 21 146/77 100 01/22/19 13:00 63 9 L 132/75 99 01/22/19 12:45 63 14 135/76 98 01/22/19 12:33 59 L 13 99 01/22/19 12:30 62 14 100 01/22/19 12:15 61 15 140/81 100 01/22/19 12:00 98 F 65 15 135/80 100 01/22/19 11:39 98 F 56 L 17 158/81 99 01/22/19 11:08 63 159/77 01/22/19 06:25 97.6 F 58 L 18 146/75 98 01/21/19 23:41 98.1 F 59 L 18 150/70 98 01/21/19 23:07 98.3 F 64 18 96/72 97 01/21/19 21:15 64 18 134/83 98 01/21/19 20:08 58 L 18 128/75 96 Intake and Output 01/22/19 01/22/19 01/22/19 06:59 14:59 22:59 Intake Total 300 200 Output Total 725 115 Balance -425 85 Intake: IV 300 200 Sodium Chloride 0.9% 1, 300 200 000 ml @ 100 mls/hr IV . Q10H [facility] Rx#:[id number] Output: Urine 725 115 Other: Voiding Method Toilet Indwelling Catheter Indwelling Catheter # Voids 2 Results - Laboratory Findings CBC and BMP: 01/23/19 04:39 01/23/19 04:39 Abnormal Lab Findings: Abnormal Labs 01/21/19 01/21/19 01/21/19 17:09 17:09 18:02 RDW 15.9 H Potassium 3.4 L Carbon Dioxide 33 H BUN 22 H Glucose 109 H POC Glucose (mg/dL) AST Ur Leukocyte Esterase Large H Urine WBC 10 H Urine Bacteria Rare H Urine Mucus Rare H 01/22/19 01/22/19 08:58 10:23 RDW Potassium Carbon Dioxide BUN Glucose POC Glucose (mg/dL) 101 H AST 42 H Ur Leukocyte Esterase Urine WBC Urine Bacteria Urine Mucus
[2019-01-23] MEDS ORDERED: Potassium Replacement Protocol 1 EACH MISC MISCELLANE PRN (06:32)
[2019-01-23] MEDS ORDERED: POTASSIUM CHLORIDE ER 20 MEQ TAB.ER PO SCH (07:00)
[2019-01-23] MEDS: ONDANSETRON 4 MG/2 ML VIAL IVP PRN ×3 (09:32→20:39)
[2019-01-23] MEDS: HEPARIN SODIUM,PORCINE 5,000 UNIT/ML 1 ML VIAL SQ SCH ×2 (09:32→20:40)
[2019-01-23] MEDS: ATORVASTATIN 10 MG TAB PO SCH (09:33)
[2019-01-23] MEDS: ASPIRIN 325 MG TAB PO SCH (09:33)
[2019-01-23] MEDS: prednisoLONE ACETATE 1% OPHTH DROPS 5 ML BTL BOTH EYES SCH ×2 (09:43→21:20)
--- NOTE | 2019-01-23 09:53 | PN ---
PROGRESS NOTE PULMONARY CRITICAL CARE PROGRESS NOTE: DATE OF SERVICE: 01/23/2019 This is a 73-year-old female who presents to the emergency room with complaints of dizziness and being wobbly. She was evaluated initially in the emergency room and was diagnosed with dizziness and possible urinary tract infection. The patient was admitted to the floor and sometime yesterday was found to have some possible right- sided body weakness and code stroke was called. Neurology has seen the patient. Her scanning including CT and MRI have been negative thus far. She was thought to have right-sided weakness and possible facial droop. Currently, she is not having any complaints whatsoever. She feels fine. She is on room air. She is getting saline at 100 mL an hour. I thought the patient could possibly go out to 6 selective today as she seems relatively comfortable. The patient apparently does have a history of hypertension. She also apparently suffers from DJD and hyperlipidemia. She does have diabetes as well. Anyway, the patient denies any chest pain or chest discomfort. There was no additional neurologic symptoms. She feels like she is back to her baseline pretty much. She is a bit lethargic. No new neurologic complaints. No genitourinary or GI complaints to speak of. PHYSICAL EXAMINATION: VITAL SIGNS: Current vital signs are reviewed. Temperature 97.9, heart rate 67, respiratory rate 14, blood pressure 99/57, mean 71. Saturations on room air 96 to 97%. Appears in no acute distress. HEENT examination is grossly unremarkable. NECK: Supple. Full range of motion. No adenopathy or thyromegaly. Neck veins are flat. CARDIOVASCULAR examination reveals regular rhythm and rate. Heart rate about 70 beats per minute. S1, S2 normal. No S3, S4, or murmur. LUNGS: Reveal clear breath sounds. No wheezes, rhonchi, or crackles. ABDOMEN: Soft. Bowel sounds are heard. No masses or tenderness. EXTREMITIES are intact. No cyanosis, clubbing, or edema. SKIN: Without rash. NEUROLOGIC examination is essentially normal. I cannot really notice a big difference in strength from the right to the left side. Other than that, her neurologic examination seems normal. LABS: Reviewed. CBC is completely normal. Electrolyte profile is completely normal. Kidney function normal. Liver function normal. Urine is testing positive for gram-negative bacilli and beta-hemolytic Streptococcus, group G. CURRENT MEDICATIONS: Include Tylenol, aspirin, Lipitor, Rocephin, heparin subcu, Zofran, potassium replacement, and eye drops. She is also on some trazodone. ASSESSMENT: 1. Possible cerebrovascular accident with negative CT scan and MRI. 2. History of skin cancer, basal cell type. 3. Probable urinary tract infection, secondary to gram-negative bacilli, rule out E coli. 4. Diabetes mellitus. 5. Gastroesophageal reflux disease. 6. Hypertension. 7. Rectal itching. 8. Sciatic neuralgia. 9. Multiple previous surgical procedures. PLAN: The patient is stable. She is getting saline at 100. She is not receiving any supplemental oxygen. Hemodynamic status is stable. She does have a gram-negative bacilli in the urine. She is on Rocephin. Will await identification. Additional recommendations and suggestions are forthcoming. The patient could be transferred to [address] [place] [address] with telemetry. MMLULYL / RAMONN: [id number] /
[2019-01-23] MEDS ORDERED: KETOROLAC 30 MG/ML 1 ML VIAL IVP PRN (12:42)
[2019-01-23] MEDS: PANTOPRAZOLE 40 MG/10 ML VIAL IVP SCH ×2 (12:45→20:39)
[2019-01-23] MEDS ORDERED: PANTOPRAZOLE 40 MG/10 ML VIAL ONE (12:51)
[2019-01-23 14:23] LABS: Hemoglobin A1C 5.9 % (4.0-6.0)
--- NOTE | 2019-01-23 20:14 | PN ---
PROGRESS NOTE DATE OF SERVICE: 01/23/2019 This 73-year-old woman who was admitted with generalized weakness and incoordination, possibly has an acute stroke also. The MRI was reviewed. Neurology is following the patient closely. The confusion has improved significantly. Patient has also complained of headache left forehead at this time. The patient also had history of recent cataract surgery also. The patient had no evidence of any acute infarct on MRI. The possibility of migraine is also suspected by Neurology. PAST MEDICAL HISTORY: Reviewed. REVIEW OF SYSTEMS: HEENT as mentioned earlier. CARDIOVASCULAR: No angina or palpitations. RESPIRATIONS: As mentioned earlier. GI as mentioned. : As mentioned earlier. CENTRAL NERVOUS SYSTEM: No focal deficits. CURRENT MEDICATIONS: Reviewed and include: 1. Tylenol 650 q.6h p.r.n. 2. Aspirin 320 mg daily. 3. Lipitor 10 mg. 4. Rocephin 1 g daily. 5. Heparin. 6. Toradol. 7. Zofran. 8. Protonix. 9. Saline. 10.Tobrex. 11.Desyrel. PHYSICAL EXAM: Patient is alert, oriented x2. Pulse 73, blood pressure 149/70, respiration 14, temperature 98.1, pulse ox 94% on room air. HEENT: Conjunctivae normal. Oral mucosa moist. NECK is no jugular venous distention. No carotid bruit. No lymph node enlargement. CARDIOVASCULAR: S1, S2 muffled. RESPIRATORY: Breath sounds diminished in the bases. A few scattered rhonchi and crackles. ABDOMEN: Soft, nontender. No mass palpable. LEGS: No edema. No swelling. NERVOUS SYSTEM: Higher functions as mentioned earlier. Moves all 4 limbs. No focal motor or sensory deficits. LYMPHATICS: No lymph nodes palpable in the neck, axilla or groin. SKIN: No ulcer, no rash or bleeding. JOINTS: No active deforming arthropathy. CENTRAL NERVOUS SYSTEM: Diffusely weak. LABORATORY DATA: Labs are CBC, CMP within normal limits. Cholesterol panel is also within normal limits. UA showed some UTI. ASSESSMENT: 1. Generalized weakness, incoordination, possibly acute transient ischemic attack. No evidence of any acute stroke. 2. Diabetes mellitus type 2. 3. Possible urinary tract infection present on admission. 4. History of recent left cataract surgery. 5. Gastroesophageal reflux disease. 6. Hypertension. 7. History of sciatica. 8. History of MRSA. 9. History of cholecystectomy. 10.History of cardiac catheterization. 11.History of degenerative joint disease. 12.History of depression. RECOMMENDATIONS AND DISCUSSION: I recommend to continue current medications, continue with monitoring, management and symptomatic treatment. Otherwise continue with empiric antibiotics. Resume the home medications. I would also recommend evaluation by Ophthalmology. Otherwise, prognosis guarded because of multiple complex medical issues. Further recommendations to follow. MMODL / IJN: [id number] /
[2019-01-23] MEDS: traZODone HCL 50 MG TAB PO SCH (21:20)
[2019-01-24] MEDS ORDERED: LORazepam 2 MG/ML INJ ONE (00:22)
[2019-01-24] MEDS: TOBRAMYCIN 0.3% OPHTH DROPS 5 ML BTL BOTH EYES SCH ×3 (00:50→12:31)
[2019-01-24] MEDS: SODIUM CHLORIDE 0.9% 1,000 ML IV SCH ×2 (00:51→08:16)
[2019-01-24 01:09] LABS: Basophils % (A) 0 %; Eosinophils # (A) 0.3 k/uL (0-0.7); Eosinophils % (A) 7 %; Lymphocytes # (A) 1.4 k/uL (1.0-4.8); Lymphocytes % (A) 28 %; MCH 28.3 pg (25.0-35.0); MCHC 32.7 g/dL (31.0-37.0); MCV 86.6 fL (80.0-100.0); Monocytes # (A) 0.3 k/uL (0-1.0); Monocytes % (A) 6 %; Neutrophils # (A) 2.9 k/uL (1.3-7.7); Neutrophils % (A) 56 %; Platelet Count 190 k/uL (150-450); RBC 4.96 m/uL (3.80-5.40); RDW 14.4 % (11.5-15.5); WBC 5.1 k/uL (3.8-10.6)
[2019-01-24 01:21] LABS: African American GFR (CKD) >90 (>60 ml/min/1.73 sqM); Anion Gap 10 mmol/L; Blood Urea Nitrogen 13 mg/dL (7-17); Calcium 9.1 mg/dL (8.4-10.2); Carbon Dioxide 20 mmol/L (22-30); Chloride 108 mmol/L (98-107); Glucose 77 mg/dL (74-99); Magnesium 1.7 mg/dL (1.6-2.3); Sodium 138 mmol/L (137-145)
[2019-01-24] MEDS ORDERED: LORazepam 2 MG/ML INJ IV PRN (07:00)
[2019-01-24 08:04] LABS: Glucose,Whole Blood 153 mg/dL (75-99)
[2019-01-24] MEDS: PANTOPRAZOLE 40 MG/10 ML VIAL IVP SCH (08:10)
[2019-01-24] MEDS: prednisoLONE ACETATE 1% OPHTH DROPS 5 ML BTL BOTH EYES SCH (08:11)
[2019-01-24] MEDS: HEPARIN SODIUM,PORCINE 5,000 UNIT/ML 1 ML VIAL SQ SCH (08:12)
[2019-01-24] MEDS: ASPIRIN 325 MG TAB PO SCH (08:13)
[2019-01-24] MEDS: ATORVASTATIN 10 MG TAB PO SCH (08:15)
[2019-01-24] MEDS: ONDANSETRON 4 MG/2 ML VIAL IVP PRN (08:28)
--- NOTE | 2019-01-24 08:30 | PN ---
PROGRESS NOTE DATE OF SERVICE: January 24, 2019. This is a 73-year-old female that we saw yesterday. She has a history of possible CVA. She did have a negative CT scan of the brain and MRI. Apparently last night she developed an episode of lethargy and somnolence as well as tremors and possible seizure activity. There was no loss of consciousness. She seemed to respond to Ativan 1 mg. The nurse asked me what we should do. Apparently there was no neurology coverage over the weekend. I thought we should transfer the patient to a higher level where neurology could see her and determine whether not these episodes were actual tremor. Anyway, she is doing a bit better this morning. She is on O2 at 2 L. Her IV is saline at 75 mL an hour. She has had no further episodes, but as I mentioned earlier, she did respond to Ativan. She has a history of basal cell skin cancer, E coli urinary tract infection, diabetes mellitus, GERD, hypertension, rectal itching, sciatic neuralgia, and multiple previous surgical procedures. Resting comfortably, but she is very lethargic and sleepy. This is certainly a change. PHYSICAL EXAMINATION: VITAL SIGNS: Current vital signs include a temperature 98.2, heart rate 60, respiratory rate 14, blood pressure 116/61, mean 79, 2 L saturation 98%. GENERAL. Appears in no acute distress. HEENT examination is grossly unremarkable. Mucous membranes are moist. No oral lesions. NECK: Supple. Full range of motion. No adenopathy or thyromegaly. Neck veins are flat. CARDIOVASCULAR examination reveals regular rhythm and rate. S1, S2 normal. No S3, S4, or murmur. LUNGS: Reveal clear, breath sounds equal. No wheezes or rhonchi. Breath sounds equal bilaterally. ABDOMEN: Soft. Bowel sounds are heard. No masses or tenderness. EXTREMITIES are intact. No cyanosis, clubbing, or edema. SKIN: Without rash. NEUROLOGIC examination is difficult to assess. She does arouse. She does move all 4 extremities. I do not perceive a significant weakness on the right side. LAB DATA: Reviewed. CBC is completely normal. Hemoglobin 14, white count 5.1, hematocrit 43, and platelet count 190,000. Sodium 138, potassium 4, chloride 108, CO2 20, anion gap is 10. BUN and creatinine were 13 and 0.68. Rest of the labs look good. Microbiology of the urine is positive for E coli and beta-hemolytic strep, group G. E coli sensitive to everything. Currently, she is on Rocephin. The rest of her medications have been reviewed. ASSESSMENT: 1. Mental status changes, with possible cerebrovascular accident, with negative CT scan of the brain and MRI. 2. Episode of tremors/questionable seizure activity, which did respond to Ativan. 3. History of skin cancer, basal cell type. 4. Urinary tract infection secondary to Escherichia coli. 5. Diabetes mellitus. 6. Gastroesophageal reflux disease. 7. Hypertension. 8. Rectal itching. 9. Sciatic neuralgia. 10.Multiple previous surgical procedures. PLAN: Dated January 24, 2019. The patient is apparently going to be transferred to [facility]. We are in the process of doing that. There has certainly been a change in her mental status. In addition, she has had those tremors and/or seizures last night which did respond to Ativan. We have no neurology coverage over the weekend. Additional recommendations and suggestions are forthcoming. Prognosis is guarded. MMODL / IJN: [id number] /
[2019-01-24] MEDS ORDERED: METOCLOPRAMIDE 5 MG/ML 2 ML VIAL IVP STA (10:31)
[2019-01-24 11:09] VITALS: PULSE 90
--- NOTE | 2019-01-24 11:21 | DS ---
DISCHARGE SUMMARY DATE OF SERVICE: 01/24/2019. FINAL DIAGNOSES: 1. Generalized weakness, incoordination, possible acute transient ischemic attack. No evidence of any acute stroke in the MRI and CT angiography. 2. Abnormal movements, rule out seizures. 3. Vomiting, headache for evaluation. 4. Possible left eye infection. 5. History of recent left eye cataract surgery. 6. Diabetes mellitus type 2. 7. Urinary tract infection present on admission. 8. Gastroesophageal reflux disease. 9. Hypertension. 10.History of sciatica. 11.History of MRSA. 12.History of cholecystectomy. 13.History of cardiac catheterization. 14.History of degenerative joint disease. 15.History of depression. DISCHARGE DISPOSITION: The patient being transferred in a stable condition with guarded prognosis to [facility] for further evaluation and treatment. Total time taken 35 minutes. HISTORY OF PRESENT ILLNESS: This 73-year-old woman with past medical history of multiple medical problems being followed by Dr. Mcconnell in the outpatient setting was admitted with incoordination and stroke was suspected but repeat evaluation including [address] scan did not show any acute stroke as well as MRA. Neurology saw the patient, but however, overnight the patient had abnormal movements. Seizures suspected. The patient also had a headache. Patient also was vomiting. There is no neck stiffness. There was no neurology staff available marketing database consultant so because of that reason, I discussed with the [facility] and the patient being transferred to [facility] for further evaluation and treatment. PHYSICAL EXAMINATION: On exam, vitals are stable. The patient is stuporous. Cardiovascular: S1, S2. Respiration: A few scattered rhonchi. Abdomen is soft, nontender. No neck stiffness. Moves all 4 limbs present. Please refer to the medication reconciliation sheet for current medications as well as labs. MMODL / IJN: [id number] /
[2019-01-24 12:31] VITALS: BP 117/65; RESP 19; TEMP 98
--- NOTE | 2019-01-25 01:21 | DS ---
DISCHARGE SUMMARY DATE OF SERVICE: 01/24/2019. HISTORY OF PRESENT ILLNESS: This 73-year-old woman who was admitted with multiple medical issues and neurology issues has been having possible seizure disorder. We do not have Neurology coverage. We have been trying since director of business systems today to transferred to [facility]. I discussed with the hospitalist who was willing to transfer but apparently there was no ICU bed. Subsequently, I called [facility] and was not able to talk to neuro biomass plant manager after repeated tries. I was put on hold. The neuro biomass plant manager was apparently busy and I asked the correctional case manager at [facility] to have him page me so that I could talk to the neuro biomass plant manager. Meanwhile, apparently the [facility] contacted and the case manager are arranging transfer to [facility] at this time. Please refer to the multiple staff notes and correctional case manager notes for further details. The patient's prognosis remains guarded. MMODL / IJN: [id number] /
== END 2019-01-24 12:30 | disposition short-term general hospital (02) | DRG 69 ==
LOC: EC 16:23 → 4SSUR 20:35 → 3NMEDONC 21:45 → 2SICU 01-22 11:24 → OBSVTOIN 01-22 12:00
PROVIDERS: ADMIT Hospitalist; ATTEND Hospitalist
DX: G45.9 Transient cerebral ischemic attack, unspecified (principal); Z87.440 Personal history of urinary (tract) infections; E11.9 Type 2 diabetes mellitus without complications; E78.5 Hyperlipidemia, unspecified; E86.0 Dehydration; E87.6 Hypokalemia; H57.9 Unspecified disorder of eye and adnexa; I10 Essential (primary) hypertension; K21.9 Gastro-esophageal reflux disease without esophagitis; M19.90 Unspecified osteoarthritis, unspecified site; M54.30 Sciatica, unspecified side; R56.9 Unspecified convulsions; Z79.1 Long term (current) use of non-steroidal anti-inflammatories (NSAID); Z79.82 Long term (current) use of aspirin; Z79.84 Long term (current) use of oral hypoglycemic drugs; Z79.899 Other long term (current) drug therapy; Z80.3 Family history of malignant neoplasm of breast; Z82.3 Family history of stroke; Z85.828 Personal history of other malignant neoplasm of skin; Z86.14 Personal history of Methicillin resistant Staphylococcus aureus infection; Z90.49 Acquired absence of other specified parts of digestive tract; Z90.710 Acquired absence of both cervix and uterus; Z96.652 Presence of left artificial knee joint; Z98.42 Cataract extraction status, left eye; Z88.5 Allergy status to narcotic agent; L29.0 Pruritus ani; Z99.81 Dependence on supplemental oxygen; F32.9 Major depressive disorder, single episode, unspecified
CPT/HCPCS: 36415; 70450; 70496; 70498; 70551; 71046; 80048; 80053; 80061; 81001; 82550; 83036; 83735; 84443; 84484; 85025; 85027; 85610; 85730; 87077; 87086; 87186; 93005; 93306; 96361; 96365; 96367; 99285

== ENCOUNTER 2019-05-11 09:57 | Day surgery (SDC) | payer MEDICARE ==
[~2019-05-11 09:57] MED LIST changes: +DEXAMETHASONE SOD PHOSPHATE 10 MG/ML 1 ML VIAL IV ONE; +HYDROmorphone 0.5 MG/0.5 ML SYRINGE IVP PRN; +MIDAZOLAM 2 MG/2 ML VIAL IV PRN; +ONDANSETRON 4 MG/2 ML VIAL IVP ONE; +Pre Op ABX Message 1 EACH MISC MISCELLANE ONE; +fentaNYL (PF) 50 MCG/ML 2 ML AMP IVP PRN
[2019-05-11] MEDS ORDERED: MIDAZOLAM 2 MG/2 ML VIAL IVP ONE (10:57)
[2019-05-11] MEDS ORDERED: fentaNYL (PF) 50 MCG/ML 2 ML AMP IVP ONE (10:57)
[2019-05-11] MEDS ORDERED: FAMOTIDINE 20 MG/2 ML VIAL IVP ONE (11:06)
[2019-05-11 11:08] LABS: Glucose,Whole Blood 93 mg/dL (75-99)
[2019-05-11] MEDS ORDERED: SCOPOLAMINE 1.5MG/72HR PATCH TRANSDERM ONE (11:08)
[2019-05-11 11:13] VITALS: TEMP 97.5
[2019-05-11] MEDS ORDERED: ROPIVACAINE 5 MG/ML 30 ML VIAL ONE (11:13)
[2019-05-11] MEDS ORDERED: DEXAMETHASONE SOD PHOSPHATE 4 MG/ML 1 ML VIAL ONE (11:13)
[2019-05-11] MEDS ORDERED: PROPOFOL 10 MG/ML 20 ML VIAL IV ONE (11:13)
[2019-05-11 12:01] VITALS: RESP 16
[2019-05-11 12:08] LABS: Glucose,Whole Blood 95 mg/dL (75-99)
[2019-05-11 12:24] VITALS: BP 144/89; PULSE 53
--- NOTE | 2019-05-11 13:51 | P.ANPRN ---
Procedure Note - Anesthesia - Nerve Block Performed Left Supraclavicular Single Time Out Performed: Yes Date of Procedure: 05/11/19 Procedure Start Time: 10:56 Procedure Stop Time: 11:06 Location of Patient: PreOp Indication: Acute Post-Operative Pain, Requested by Surgeon Sedation Type: Sedate with meaningful contact maintained Preparation: Sterile Prep Position: Sitting Catheter: None Needle Types: Pajunk Needle Gauge: 21 Ultrasound used to visualize needle placement: Yes Ultrasound used to observe medication spread: Yes Injectate: 0.5% Ropivacaine (see comment for volume) (20cc + decadron 4mg) Blood Aspirated: No Pain Paresthesia on Injection Noted: No Resistance on Injection: Normal Image Stored and Saved: Yes Events: Uneventful and Well Tolerated
--- NOTE | 2019-05-14 23:59 | OP ---
OPERATIVE REPORT SURGERY DATE: 05/11/2019. PREOPERATIVE DIAGNOSES: FINAL DIAGNOSIS: 1. Base of joint arthritis left thumb. 2. Left carpal tunnel syndrome. PROCEDURE PERFORMED: 1. Excision of trapezium with ligament reconstruction tendon interposition arthroplasty using the flexor carpi radialis tendon. 2. Left carpal tunnel release. DESCRIPTION OF PROCEDURE: The patient was taken to the Operative Suite after an axillary block was performed by the Department of Anesthesia in the holding area with good results. The involved arm was prepped and draped in the usual manner, elevated, exsanguinated and blood pressure tourniquet inflated to 250 mm of mercury. A volar incision was made over the palm of the hand using a Ruiz approach. The dissection was taken through the subcutaneous tissue bluntly to identify and to preserve sensory branches. The flexor carpi radialis tendon was initially identified and kept in view throughout the remainder of the procedure. The thenar muscles were then gently dissected off of the volar capsule and reflected ulnarly and distally. Longitudinal arthrotomy was then made into the trapezial metacarpal and scaphotrapezial joints. The trapezium was dissected sharply with a little traction on the thumb and care again, given to monitoring the position of the flexor carpi radialis. The trapezium was osteotomized and removed in piecemeal fashion using rongeur. Again, the flexor carpi radialis tendon was kept intact so as not to be harmed during this portion of the procedure. A drill hole was then made into the base of the first metacarpal, beginning with an awl and enlarged using drill bits and a large curette. A similar hole was drilled on the dorsal aspect of the base of the first metacarpal perpendicular to the plane of the nail bed. Attention was then turned to harvesting the flexor carpi radialis. Approximately 8 to 10 cm proximal to the wrist, small transverse incision was made and blunt dissection was taken through the subcutaneous tissue. The flexor carpi radialis tendon was identified and released to this level. It was retracted into the wrist wound with a gentle tug. A suspension sling arthroplasty was then performed along with ligament reconstruction of the deep volar ligament using the flexor carpi radialis tendon. The edge of the tendon was secured with suture. The suture was then passed into the base of the first metacarpal and brought out through the dorsal drill hole and brought back down upon itself and abductor pollicis longus tendons. It was secured in place with 3-0 PDS suture. It was then brought back around itself, back through the abductor pollicis longus tendons, and back down upon itself again and further secured with 3-0 PDS suture. Again, in this manner reconstruction of the deep volar ligament was accomplished as well as a suspension sling arthroplasty and natural tendon spacer for the joint. Next, a longitudinal incision was made along the ring finger ray distal to the wrist crease. Dissection was taken through the skin and subcutaneous tissue, initially sharp through the skin and then blunt through the subcutaneous tissue to ensure protection of any potential terminal transverse branches of the palmar cutaneous nerve. The palmar fascia was then incised under direct vision longitudinally exposing the transverse carpal ligament. The transverse carpal ligament also was incised under direct visualization. The median nerve was then reflected free of tenosynovium to ensure no adhesions. At this point, a slight hour glass constriction was noted of the median nerve beneath the transverse carpal ligament. Both wounds were again irrigated and were closed with running and interrupted 5-0 nylon suture. A soft bulky dressing was then applied including the volar plaster splint, immobilizing the wrist in neutral position and a thumb spica splint to the IP joint, immobilizing the thumb. The patient was then taken to the Recovery Room in satisfactory condition. FLY / SATINDER: [id number] /
== END 2019-05-11 12:45 | disposition home or self-care (01) ==
LOC: OR 09:57
PROVIDERS: ATTEND Orthopaedic Surgery Hand Surgery
DX: M19.042 Primary osteoarthritis, left hand (principal); G56.02 Carpal tunnel syndrome, left upper limb; E11.9 Type 2 diabetes mellitus without complications; I10 Essential (primary) hypertension; E78.5 Hyperlipidemia, unspecified; Z85.89 Personal history of malignant neoplasm of other organs and systems; Z97.3 Presence of spectacles and contact lenses; Z90.710 Acquired absence of both cervix and uterus; Z96.653 Presence of artificial knee joint, bilateral; Z98.42 Cataract extraction status, left eye; Z98.41 Cataract extraction status, right eye; Z98.890 Other specified postprocedural states; Z83.3 Family history of diabetes mellitus; Z82.49 Family history of ischemic heart disease and other diseases of the circulatory system; Z79.84 Long term (current) use of oral hypoglycemic drugs; Z79.82 Long term (current) use of aspirin; Z79.899 Other long term (current) drug therapy; Z88.5 Allergy status to narcotic agent; Z88.8 Allergy status to other drugs, medicaments and biological substances
CPT/HCPCS: 26502; 64721; 64415; 76942; J2250; J1100; J0690; J2405; J3010; J2795; J2704; 64413

== ENCOUNTER 2020-07-27 07:12 | Day surgery (SDC) | payer MEDICARE ==
[2020-07-25 13:24] VITALS: BMI 29.2
[~2020-07-27 07:12] MED LIST changes: -DEXAMETHASONE SOD PHOSPHATE 10 MG/ML 1 ML VIAL IV ONE; -HYDROmorphone 0.5 MG/0.5 ML SYRINGE IVP PRN; -LIDOCAINE 1% 20 ML VIAL (10MG/ML) FOR IV START INTRADERMA PRN; -MIDAZOLAM 2 MG/2 ML VIAL IV PRN; -ONDANSETRON 4 MG/2 ML VIAL IVP ONE; -Pre Op ABX Message 1 EACH MISC MISCELLANE ONE; -fentaNYL (PF) 50 MCG/ML 2 ML AMP IVP PRN
[2020-07-27 07:42] VITALS: TEMP 98.6
[2020-07-27] MEDS ORDERED: LIDOCAINE 1% (10MG/ML) FOR IV START INTRADERMA ONE (07:42)
[2020-07-27 07:50] LABS: Glucose,Whole Blood 105 mg/dL (75-99)
[2020-07-27] MEDS ORDERED: PROPOFOL 10 MG/ML 20 ML VIAL IV ONE (08:19)
--- NOTE | 2020-07-27 08:21 | P.GSHP ---
History of Present Illness H&P Date: 07/27/20 Chief Complaint: GI bleed, internal and external hemorrhoids This a 74-year-old female presents today for colonoscopy. She's had issues with rectal bleeding. She has no internal and external hemorrhoids. Past Medical History Past Medical History: Cancer, Diabetes Mellitus, GERD/Reflux, Hyperlipidemia, Hypertension Additional Past Medical History / Comment(s): SCIATICA. Basal cell CA nose, hemorrhoids & some bleeding, ?seizure activity w/some dizziness, weakness couple years ago-nothing like that since, no seizure meds History of Any Multi-Drug Resistant Organisms: MRSA Date of last positivie culture/infection: 03/24/2014 MDRO Source:: Face Past Surgical History: Cholecystectomy, Heart Catheterization, Hysterectomy, Joint Replacement, Orthopedic Surgery, Tonsillectomy Additional Past Surgical History / Comment(s): BILATERAL CATARACTS. Rt shoulder rot cuff 04-09-18ORIF upper rt arm, CARPAL TUNNEL RASHID, BONE REPLACEMENT IN RT WRIST WITH PLATE, LEFT ROTATOR CUFF, CERVICAL NECK SX, ELBOW TENDON SX. BENIGN CYST REMOVED RASHID ARMS AND RT HAND, rashid knee replacements Past Anesthesia/Blood Transfusion Reactions: No Reported Reaction, Motion Sickness Smoking Status: Never smoker - Past Family History Mother Family Medical History: Cancer Additional Family Medical History / Comment(s): BREAST Medications and Allergies Home Medications Medication Instructions Recorded Confirmed Type Aspirin 81 mg PO DAILY 06/01/14 07/27/20 History Metoprolol Tartrate [Lopressor] 50 mg PO QAM 06/01/14 07/27/20 History Oxybutynin Chloride [Ditropan] 5 mg PO BID 06/01/14 07/27/20 History Sertraline [Zoloft] 50 mg PO QAM 06/01/14 07/27/20 History metFORMIN HCL [Glucophage] 500 mg PO QAM 06/01/14 07/27/20 History traZODone HCL [Desyrel] 50 mg PO HS 06/01/14 07/27/20 History Atorvastatin Calcium [Lipitor] 10 mg PO HS 01/21/19 07/27/20 History Olmesartan Medoxomil [Benicar] 40 mg PO QAM 01/21/19 07/27/20 History Cyanocobalamin (Vitamin B-12) 1,000 mcg PO DAILY 05/07/19 07/27/20 History [Vitamin B-12] Magnesium Gluconate [Magonate] 500 mg PO BID 05/07/19 07/27/20 History Melatonin 5 mg PO HS PRN 05/07/19 07/27/20 History Omeprazole 40 mg PO DAILY 07/25/20 07/27/20 History Allergies Allergy/AdvReac Type Severity Reaction Status Date / Time LANDY Inhibitors Allergy Nausea & Verified 07/27/20 07:27 Vomiting. PASSED OUT amlodipine [From [facility]] Allergy Nausea & Verified 07/27/20 07:27 Vomiting, PASSED OUT tramadol Allergy Nausea & Verified 07/27/20 07:27 Vomiting, PASSED OUT codeine AdvReac Nausea Verified 07/27/20 07:27 Surgical - Exam Vital Signs Temp Pulse Resp BP Pulse Ox 98.6 F 55 L 16 153/73 99 07/27/20 07:27 07/27/20 07:27 07/27/20 07:27 07/27/20 07:27 07/27/20 07:27 - General well developed, well nourished, no distress - Eyes PERRL - ENT normal pinna - Neck no masses - Respiratory normal expansion - Cardiovascular Rhythm: regular - Abdomen Abdomen: soft, non tender Results - Labs Abnormal Lab Results - Last 24 Hours (Table) 07/27/20 Range/Units 07:38 POC Glucose (mg/dL) 105 H (75-99) mg/dL Assessment and Plan Assessment: GI bleed, internal and external hemorrhoids. We'll perform colonoscopy.
--- NOTE | 2020-07-27 08:31 | P.OP ---
Date of Procedure: 07/27/20 Preoperative Diagnosis: GI bleed Internal and external hemorrhoids Postoperative Diagnosis: Internal and external hemorrhoids No evidence of rectal bleeding Procedure(s) Performed: Colonoscopy Anesthesia: MAC Surgeon: Nadir Madrigal Pathology: none sent Condition: stable Disposition: PACU Description of Procedure: The patient's placed on the endoscopy table in the lateral position. She received IV sedation. Digital rectal exam was performed which revealed internal and external hemorrhoids. Flexible colonoscope was then placed throughout the entire colon. The ileocecal valve was visualized. The cecum, ascending and transverse colon appeared normal. The descending and sigmoid colon. The scope was then brought back the rectum this appeared normal. Scope was withdrawn from patient and internal/external hemorrhoids noted. There is no evidence GI bleed, was presumed that her rectal bleeding is due to hemorrhoids.
[2020-07-27 08:48] VITALS: BP 116/58; PULSE 52; RESP 20
== END 2020-07-27 09:01 | disposition home or self-care (01) ==
LOC: ORWHC2ENDO 07:12
PROVIDERS: ATTEND Surgery
DX: K64.8 Other hemorrhoids (principal); K64.4 Residual hemorrhoidal skin tags; K92.2 Gastrointestinal hemorrhage, unspecified; E11.9 Type 2 diabetes mellitus without complications; K21.9 Gastro-esophageal reflux disease without esophagitis; E78.5 Hyperlipidemia, unspecified; I10 Essential (primary) hypertension; M54.30 Sciatica, unspecified side; Z85.828 Personal history of other malignant neoplasm of skin; Z86.14 Personal history of Methicillin resistant Staphylococcus aureus infection; Z90.49 Acquired absence of other specified parts of digestive tract; Z90.710 Acquired absence of both cervix and uterus; Z98.42 Cataract extraction status, left eye; Z98.41 Cataract extraction status, right eye; Z98.890 Other specified postprocedural states; Z96.653 Presence of artificial knee joint, bilateral; Z80.3 Family history of malignant neoplasm of breast; Z79.84 Long term (current) use of oral hypoglycemic drugs; Z79.82 Long term (current) use of aspirin; Z79.899 Other long term (current) drug therapy; Z88.5 Allergy status to narcotic agent; Z88.8 Allergy status to other drugs, medicaments and biological substances
CPT/HCPCS: 45378; J2704

== ENCOUNTER 2020-08-09 09:38 | Day surgery (SDC) | payer MEDICARE ==
[2020-08-04 11:10] VITALS: BMI 28.1
[~2020-08-09 09:38] MED LIST changes: +ACETAMINOPHEN TAB 500 MG TAB PO PRN; +DEXAMETHASONE SOD PHOSPHATE 4 MG/ML 1 ML VIAL IV ONE; +HEPARIN SODIUM,PORCINE 5,000 UNIT/ML 1 ML VIAL SQ PRN; +HYDROmorphone 0.5 MG/0.5 ML SYRINGE IVP PRN; +LIDOCAINE 1% (10MG/ML) FOR IV START INTRADERMA PRN; +Pre Op ABX Message 1 EACH MISC MISCELLANE ONE
[2020-08-09 10:36] VITALS: RESP 16
[2020-08-09 10:38] LABS: Glucose,Whole Blood 95 mg/dL (75-99)
[2020-08-09] MEDS ORDERED: MIDAZOLAM 2 MG/2 ML VIAL IVP ONE (10:43)
--- NOTE | 2020-08-09 11:37 | P.GSHP ---
History of Present Illness H&P Date: 08/09/20 Chief Complaint: Internal and external hemorrhoids This is a 74-year-old female who presents today for hemorrhoidectomy. Patient had problems itching bleeding and pain from hemorrhoids Past Medical History Past Medical History: Cancer, Diabetes Mellitus, GERD/Reflux, Hyperlipidemia, Hypertension Additional Past Medical History / Comment(s): Occ sciatica. Basal cell CA nose. hemorrhoids & some bleeding. ?seizure activity w/dizzyness/weakness few years ago - no seizure meds. Bladder leakage. Varicose veins. History of Any Multi-Drug Resistant Organisms: MRSA Date of last positivie culture/infection: 03/24/2014 MDRO Source:: Face Past Surgical History: Cholecystectomy, Heart Catheterization, Hysterectomy, Joint Replacement, Orthopedic Surgery, Tonsillectomy Additional Past Surgical History / Comment(s): BILATERAL CATARACTS. Rt shoulder rot cuff 04-09-18, ORIF upper rt arm, CARPAL TUNNEL RASHID, BONE REPLACEMENT IN RT WRIST W/ PLATE, LEFT ROTATOR CUFF, CERVICAL NECK SX, bilat elbow tendon SX. BENIGN CYST REMOVED RASHID ARMS AND RT HAND, rashid knee replacements. Colonoscopy 05/06 Past Anesthesia/Blood Transfusion Reactions: No Reported Reaction, Motion Sickness Smoking Status: Never smoker - Past Family History Mother Family Medical History: Cancer Additional Family Medical History / Comment(s): BREAST Medications and Allergies Home Medications Medication Instructions Recorded Confirmed Type Aspirin 81 mg PO DAILY 06/01/14 08/09/20 History Metoprolol Tartrate [Lopressor] 50 mg PO QAM 06/01/14 08/09/20 History Oxybutynin Chloride [Ditropan] 5 mg PO BID 06/01/14 08/09/20 History Sertraline [Zoloft] 100 mg PO QAM 06/01/14 08/09/20 History metFORMIN HCL [Glucophage] 500 mg PO QAM 06/01/14 08/09/20 History traZODone HCL [Desyrel] 50 mg PO HS 06/01/14 08/09/20 History Atorvastatin Calcium [Lipitor] 10 mg PO HS 01/21/19 08/09/20 History Olmesartan Medoxomil [Benicar] 40 mg PO QAM 01/21/19 08/09/20 History Cyanocobalamin (Vitamin B-12) 1,000 mcg PO DAILY 05/07/19 08/09/20 History [Vitamin B-12] Magnesium Gluconate [Magonate] 500 mg PO BID 05/07/19 08/09/20 History Melatonin 5 mg PO HS PRN 05/07/19 08/09/20 History Omeprazole 40 mg PO DAILY 07/25/20 08/09/20 History Acetaminophen [Tylenol Extra 500 - 1,000 mg PO DIRECTED PRN 08/04/20 08/09/20 History Strength] Allergies Allergy/AdvReac Type Severity Reaction Status Date / Time LANDY Inhibitors Allergy Nausea & Verified 08/04/20 10:45 Vomiting. PASSED OUT amlodipine [From [facility]] Allergy Nausea & Verified 08/04/20 10:45 Vomiting, PASSED OUT tramadol Allergy Nausea & Verified 08/04/20 10:45 Vomiting, PASSED OUT codeine AdvReac Nausea Verified 08/04/20 10:45 Surgical - Exam Vital Signs Temp Pulse Resp BP Pulse Ox 98.0 F 70 16 171/77 97 08/09/20 10:26 08/09/20 10:26 08/09/20 10:26 08/09/20 10:26 08/09/20 10:26 - General well developed, well nourished, no distress - Eyes PERRL - ENT normal pinna - Neck no masses - Respiratory normal expansion - Cardiovascular Rhythm: regular - Abdomen Abdomen: soft, non tender (Internal) - Rectum Rectum: mass (Internal she'll hemorrhoids) Assessment and Plan Assessment: Internal and Hemorrhoids. We'll perform hemorrhoidectomy.
[2020-08-09] MEDS ORDERED: MIDAZOLAM 2 MG/2 ML VIAL ONE (11:48)
[2020-08-09] MEDS ORDERED: fentaNYL (PF) 50 MCG/ML 2 ML AMP ONE (11:48)
[2020-08-09] MEDS ORDERED: SUCCINYLCHOLINE CHLORIDE 100 MG/5 ML SYR IV ONE (11:48)
[2020-08-09] MEDS ORDERED: PROPOFOL 10 MG/ML 20 ML VIAL IV ONE (11:48)
[2020-08-09] MEDS ORDERED: LIDOCAINE 1% INJ 10MG/ML (20 ML MDV) ONE (11:48)
[2020-08-09] MEDS ORDERED: SODIUM CHLORIDE 0.9% 50 ML with ceFAZolin 2,000 MG IV ONE ×2 (11:52)
[2020-08-09] MEDS ORDERED: BUPIVACAIN-EPI 0.5%-1:200,000 30 ML VIAL SQ ONE ×2 (12:16→12:21)
[2020-08-09] MEDS ORDERED: GELATIN SPONGE,ABSORB (LARGE) 1 EACH SPONGE TOPICAL ONE (12:23)
--- NOTE | 2020-08-09 12:35 | P.OP ---
Date of Procedure: 08/09/20 Preoperative Diagnosis: Internal and external Hemorrhoids Postoperative Diagnosis: Internal and external hemorrhoids Procedure(s) Performed: Internal and Hemorrhoidectomy Anesthesia: VINICIOA Surgeon: Nadir Madrigal Estimated Blood Loss (ml): 5 Pathology: other (Hemorrhoids) Condition: stable Disposition: PACU Description of Procedure: The patient's placed on the operative table in the prone position after receiving general anesthesia. Her abdomen peritoneum was prepped and draped usual fashion. The anal PLACED anus. The patient a large left hemorrhoidal column. This is grasped Allis clips. Using the Harmonic scissors the rectus performed. Next the right anterior and right posterior hemorrhoid columns were excised in identical fashion. The posterior cyst. The anus was then packed with Gelfoam. Patient top she will was sent to recovery room in stable condition.
[2020-08-09 12:45] VITALS: TEMP 96.8
[2020-08-09 12:54] LABS: Glucose,Whole Blood 136 mg/dL (75-99)
[2020-08-09 14:29] VITALS: BP 145/78; PULSE 84
== END 2020-08-09 14:45 | disposition home or self-care (01) ==
LOC: OR 09:38
PROVIDERS: ATTEND Surgery
DX: K64.8 Other hemorrhoids (principal); K64.4 Residual hemorrhoidal skin tags; E11.9 Type 2 diabetes mellitus without complications; K21.9 Gastro-esophageal reflux disease without esophagitis; E78.5 Hyperlipidemia, unspecified; I10 Essential (primary) hypertension; M54.30 Sciatica, unspecified side; Z85.828 Personal history of other malignant neoplasm of skin; R32 Unspecified urinary incontinence; I83.90 Asymptomatic varicose veins of unspecified lower extremity; Z86.14 Personal history of Methicillin resistant Staphylococcus aureus infection; Z90.49 Acquired absence of other specified parts of digestive tract; Z90.710 Acquired absence of both cervix and uterus; Z96.653 Presence of artificial knee joint, bilateral; Z90.89 Acquired absence of other organs; Z98.42 Cataract extraction status, left eye; Z98.41 Cataract extraction status, right eye; Z98.890 Other specified postprocedural states; Z80.3 Family history of malignant neoplasm of breast; Z79.84 Long term (current) use of oral hypoglycemic drugs; Z79.82 Long term (current) use of aspirin; Z79.899 Other long term (current) drug therapy; Z88.5 Allergy status to narcotic agent; Z88.8 Allergy status to other drugs, medicaments and biological substances
CPT/HCPCS: 88304

== ENCOUNTER → 2021-08-31 | Outpatient (CLI) | payer MEDICARE ==
--- NOTE | 2021-08-31 09:33 | XR ---
EXAMINATION TYPE: XR Hip Limited RT DATE OF EXAM: 08/31/2021 COMPARISON: NONE HISTORY: Pain TECHNIQUE: 2 views submitted FINDINGS: There is no evidence of erosive change or acute fracture. Hypertrophic change of the acetabulum. Narr owing of the superior compartment of the joint space. IMPRESSION: 1. 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
--- NOTE | 2021-08-31 11:14 | CT ---
EXAMINATION TYPE: CT abdomen pelvis w con DATE OF EXAM: 08/31/2021 COMPARISON: NONE HISTORY: 75-year-old female R10.31, R63.4, RLQ pain, wt loss TECHNIQUE: Contiguous axial scanning of the abdomen and pelvis following administration of 100 ml Iso violette 300 IV contrast. Delayed images through the kidneys and coronal/sagittal reconstructions perform ed. CT DLP: 1036 mGycm Automated exposure control for dose reduction was used. FINDINGS: The heart is mildly enlarged without pericardial effusion. Lung bases clear without pleural effusion. Mild circumferential wall thickening distal esophagus. Query any potential symptoms of esophagitis. Liver shows an 8 mm hypodensity right liver lobe, likely a small cyst. The bile duct is dilated up to 1.3 cm status post cholecystectomy. No distal structure lesion is seen. Correlation with alkaline ph osphatase and bilirubin levels is recommended to exclude a distal obstruction. Adrenal glands, right kidney, spleen, and mildly atrophic pancreas. No gross abnormally. Mild fullness of the left renal collecting system and possible extra renal pelvis. Normal caliber to the left ureter. No dilated small bowel, free fluid, or free air. No mesenteric or retroperitoneal lymphadenopathy. Mild stool within the right side of the colon and moderate within the distal sigmoid colon and rectum . No pericolonic inflammatory change. Possible focal apple core lesion at the rectosigmoid junction for a span of 1.7 cm, axial image 65 an d coronal image 69. Sagittal image 34. Bladder is urine distended. No abnormal fluid collection in the pelvis or pelvic lymphadenopathy. Griselda sonia surgically absent. Suspect visualization of both ovaries. Bones: Mild to moderate degenerative changes both hips. Postsurgical change L1-L2 posterior lumbar fu lillian. While there is a large disc osteophyte complex, there is also dorsal decompression of the canal at this level. Hypertrophic facet arthropathy mid to lower lumbar spine with ligamentum flavum thickening. Grade 1 a nterolisthesis L4-L5. Grade 1 retrolisthesis below the fusion at L2-L3. IMPRESSION: 1. SHORT SEGMENT ANNULAR THICKENING AND NARROWING AT THE RECTOSIGMOID JUNCTION FOR A SPAN OF 1.7 CM. UNABLE TO EXCLUDE COLON CANCER HERE ESPECIALLY GIVEN PATIENT'S WEIGHT LOSS. DIRECT VISUALIZATION PENELOPE MMENDED. 2. MILD CARDIOMEGALY. 3. MILD CIRCUMFERENTIAL WALL THICKENING OF THE DISTAL ESOPHAGUS MAY RELATE TO NONDISTENTION. CORRELAT E FOR ANY POTENTIAL SYMPTOMS OF ESOPHAGITIS. DIRECT VISUALIZATION IF INDICATED. 4. PATIENT IS STATUS POST CHOLECYSTECTOMY. BILE DUCT ENLARGEMENT OF 1.3 CM IS SLIGHTLY MORE THAN EXPE CTED BUT MAY BE CHRONIC FOR THE PATIENT. CORRELATE WITH ALKALINE PHOSPHATASE AND BILIRUBIN LEVELS TO EXCLUDE THE POSSIBILITY OF BILIARY OBSTRUCTION. 5. MILD FULLNESS OF THE LEFT RENAL COLLECTING SYSTEM, PROBABLY TRANSIENT. CONSIDER FOLLOW-UP RENAL UL TRASOUND TO EXCLUDE EARLY HYDRONEPHROSIS. IF CONCERN FOR A RELATIVE UPJ OBSTRUCTION, A NUCLEAR MEDICI NE MAG3 RENAL SCAN CAN BE CONSIDERED. 6. STATUS POST L1-L2 POSTERIOR AND INTERBODY LUMBAR FUSION. MODERATE TO ADVANCED DEGENERATIVE CHANGE LUMBAR SPINE.
== END | disposition home or self-care (01) ==
LOC: RADCTMAIN 08:43
PROVIDERS: ATTEND Family Medicine
DX: I51.7 Cardiomegaly (principal); M43.26 Fusion of spine, lumbar region; M51.36 Other intervertebral disc degeneration, lumbar region; Z90.49 Acquired absence of other specified parts of digestive tract
CPT/HCPCS: 73501; 74177; 36415; Q9967

== ENCOUNTER → 2021-09-25 | Outpatient (CLI) | payer MEDICARE ==
--- NOTE | 2021-09-25 09:18 | US ---
EXAMINATION TYPE: US kidneys/renal and bladder DATE OF EXAM: 09/25/2021 COMPARISON: Correlation CT 08/31/2021. CLINICAL HISTORY: 75-year-old female [id number]. TECHNIQUE: Multiple sonographic images of the kidneys and bladder are obtained. FINDINGS: EXAM MEASUREMENTS: Right Kidney: 9.5 x 4.3 x 4.8 cm Left Kidney: 9.9 x 4.1 x 4.8 cm Right Kidney: No hydronephrosis or masses seen Left Kidney: No hydronephrosis or masses seen Bladder: Partially distended bladder shows no gross abnormality. IMPRESSION: No hydronephrosis appreciated.
== END | disposition home or self-care (01) ==
LOC: RADUSWWP 06:46
PROVIDERS: ATTEND Family Medicine
DX: R93.422 Abnormal radiologic findings on diagnostic imaging of left kidney (principal)
CPT/HCPCS: 76770

== ENCOUNTER → 2021-11-07 | Day surgery (SDC) | payer MEDICARE ==
[2021-11-06 14:04] VITALS: BMI 22.8
[~2021-11-07] MED LIST changes: -ACETAMINOPHEN TAB 500 MG TAB PO PRN; -DEXAMETHASONE SOD PHOSPHATE 4 MG/ML 1 ML VIAL IV ONE; -HEPARIN SODIUM,PORCINE 5,000 UNIT/ML 1 ML VIAL SQ PRN; -HYDROmorphone 0.5 MG/0.5 ML SYRINGE IVP PRN; +LIDOCAINE 1% (10MG/ML) FOR IV START INTRADERMA ONE; +LIDOCAINE 2% INJ 20 MG/ML (2 ML VIAL) ONE; +PROPOFOL 10 MG/ML 20 ML VIAL IV ONE; -Pre Op ABX Message 1 EACH MISC MISCELLANE ONE
[2021-11-07 06:43] LABS: Glucose,Whole Blood 89 mg/dL (75-99)
[2021-11-07 06:49] VITALS: TEMP 97
--- NOTE | 2021-11-07 07:20 | P.PCN ---
Date of Procedure: 11/07/21 Procedure(s) Performed: Brief history: Patient is a pleasant 72-year-old white female scheduled for an elective upper endoscopy as well as colonoscopy as a part of evaluation of progressive weight loss of almost 30 pounds in the last 3 months duration. She is been having intermittent abdominal pain associated with occasional nausea vomiting. She had a CT of abdomen and pelvis done that showed narrowing of the rectosigmoid junction and possibility of neoplasm could not be excluded. Procedure performed: Esophagogastroduodenoscopy with biopsy Colonoscopy Preoperative diagnosis: Epigastric pain/nausea vomiting Progressive weight loss Abnormal CAT scan of abdomen showing thickening of the rectosigmoid colon Anesthesia: MAC Procedure: After informed consent was obtained from the patient was brought into the endoscopy unit and IV sedation was administered by anesthesia under continuous monitoring. Initially upper endoscopy was done. The Olympus GF 160 video endoscope was inserted inserted into the mouth and esophagus intubated without any difficulty and was gradually advanced into the stomach and duodenum and carefully examined. The bulb and second part of the duodenum appeared normal. Biopsy were done from the duodenum to rule out celiac disease. The scope was then withdrawn into the stomach adequately insufflated with air and upon careful examination the antrum and body, had diffuse gastritis and biopsies were done from this area. The cardia and fundus appeared normal. The scope was then withdrawn into the esophagus. The GE junction was located at 40 cm to the incisors. It appeared regular with no erythema erosions or ulcerations. Rest of the esophagus appeared normal. Patient tolerated the procedure well. At this time the patient continued to remain sedation. Initial digital rectal examination was normal. Olympus CF 160 video colonoscope was then inserted into the rectum and gradually advanced to the cecum without any difficulty. Careful examination was performed as the scope was gradually being withdrawn. The prep was excellent. The cecum, ascending colon, transverse colon, descending colon, sigmoid colon and rectum appeared normal. Retroflexion was performed in the rectum and no lesions were noted. Patient tolerated the procedure well. Impression: 1. Upper endoscopy revealed diffuse gastritis but no evidence of peptic ulcer disease 2. Colonoscopy was within normal limits with no evidence of colitis or colorectal neoplasia Recommendations: Findings of this examination were discussed with the patient as well as in her family. She was advised to follow with the biopsy results. Recommend repeat screening colonoscopy in 10 years.
[2021-11-07 07:29] VITALS: RESP 16
[2021-11-07 07:44] VITALS: BP 154/75; PULSE 54
== END ==
LOC: ORWHC2ENDO 05:58
PROVIDERS: ATTEND Internal Medicine Gastroenterology
DX: K29.50 Unspecified chronic gastritis without bleeding (principal)
CPT/HCPCS: 45378; 43239; 88305; 88342; J2704; J2001

== ENCOUNTER → 2021-12-12 | Outpatient (CLI) | payer MEDICARE ==
--- NOTE | 2021-12-13 05:39 | MR ---
EXAMINATION TYPE: MR pancreas / mrcp wo/w con DATE OF EXAM: 12/12/2021 COMPARISON: None HISTORY: RIGHT UPPER QUADRANT PAIN CONTRAST: Standard multiplanar, multisequence MRI departmental protocol images were obtained without contrast a nd with 5.5 mL intravenous Gadavist gadolinium contrast. Multiplanar multi echo imaging of the abdomen without and with the IV contrast. There are MRCP images. The liver has normal size and contour. Spleen is intact. Pancreatic duct appears normal. No sign of p ancreatic mass. The common bile duct is large and measures 1.6 cm. There is some enlargement of the l eft hepatic duct. The right hepatic duct is not dilated. Gallbladder is absent. There is no adrenal mass. Kidneys have normal size and contour. No hydronephrosis. Contrast images sh ow normal renal enhancement. There is normal enhancement of the portal venous system. I see no defini te filling defect in the biliary tree. Distal common bile duct appears to show normal tapering. No ev idence of a definite common duct stone. IMPRESSION: Mildly dilated biliary tree including the left hepatic duct and the distal right hepatic duct. No sig n of a common duct stone. No obstructing mass seen. No evidence of pancreatic mass.
== END | disposition home or self-care (01) ==
LOC: RADMRIMAIN 11:14
PROVIDERS: ATTEND Family Medicine
DX: R10.11 Right upper quadrant pain (principal); R93.5 Abnormal findings on diagnostic imaging of other abdominal regions, including retroperitoneum; R93.422 Abnormal radiologic findings on diagnostic imaging of left kidney
CPT/HCPCS: 74183; A9585

== ENCOUNTER 2022-07-11 15:11 | Inpatient (IN) | payer MEDICARE ==
--- NOTE | 2022-07-11 16:22 | ED ---
General Adult HPI - General Chief complaint: Seizure Stated complaint: Seizure Time Seen by Provider: 07/11/22 15:33 Source: patient, EMS Mode of arrival: EMS - History of Present Illness Initial comments: Dictation was produced using Rocket[employer] dictation software. please excuse any grammatical, word or spelling errors. Chief Complaint: 76-year-old female presents emergency department for seizures History of Present Illness: To 76-year-old female last week she was admitted to [facility] after having had seizure after shoulder procedure performed by orthopedic surgery. She is admitted to the ICU and had a telemetry neurology evaluation. She was started on valproic acid. Patient has had seizure prior to this episode. She was discharged to the rehab facility were today she started having more seizures. She is sent to the emergency department. History of present illness obtained from daughters at the bedside. Patient who is lethargic states that she feels weak. The ROS documented in this emergency department record has been reviewed and co nfirmed by me. Those systems with pertinent positive or negative responses have been documented in the HPI. All other systems are other negative and/or noncontributory. PHYSICAL EXAM: General Impression: Alert and oriented, not in acute distress, somnolent HEENT: Normocephalic atraumatic, extra-ocular movements intact, pupils equal and reactive to light bilaterally, mucous membranes moist. Cardiovascular: Heart regular rate and rhythm Chest: Able to complete full sentences, no retractions, no tachypnea Abdomen: abdomen soft, non-tender, non-distended, no organomegaly Musculoskeletal: Pulses present and equal in all extremities, no peripheral edema Motor: no focal deficits noted Neurological: CN II-XII grossly intact, no focal motor or sensory deficits noted Skin: Intact with no visualized rashes Psych: Normal affect and mood ED course: 76-year-old female presents emergency department for seizures. Signs upon arrival are within acceptable limits. Nursing notes and chart review was performed My EKG interpretation: Ventricular rate 71, sinus rhythm,. 140, QRS 90, QTC 422. No OK prolongation, no QTC prolongation, no ST or T-wave changes noted. EKG compared to 01/21/2019 showing no changes. Overall, this EKG is unremarkable Laboratory evaluation obtained. CBC, metabolic panel is unremarkable. Abdominal labs are negative. Computed tomography scan of brain is unremarkable. Patient observed in emergency department for approximately 3 hours and 40 minutes. Reevaluated bedside at 656. She is somnolent. But she is arousable and alert. Pending ammonia levels. Suspect that patient may be opiate toxic. She says respiratory distress however. No seizures noted while in the emergency department. Was pt. sent in by a medical professional or institution (, ESTEBAN, HEALTH CARE MARKETING MANAGER, urgent care, hospital, or longterm...) When possible be specific @ -detention Did you speak to anyone other than the patient for history (EMS, parent, family, police, friend...)? What history was obtained from this source @ -Daughter's Did you review nursing and triage notes (agree or disagree)? Why? @ -I reviewed and agree with nursing and triage notes Were old charts reviewed (outside hosp., previous admission, EMS record, old EKG, old radiological studies, urgent care reports/EKG's, longterm records)? Report findings @ -No old charts were reviewed Differential Diagnosis (chest pain, altered mental status, abdominal pain women, abdominal pain men, vaginal bleeding, weakness, fever, dyspnea, syncope, headache, dizziness, GI bleed, back pain, seizure, CVA, palpatations, mental health)? @ -Differential Seizure: Recurrent seizure disorder, febrile seizure, alcohol withdrawal, stimulants, meningitis, encephalitis, intercranial hemorrhage, intracranial tumor, stroke, eclampsia, thyrotoxicosis, hypocalcemia, hyponatremia, hypernatremia, hypomagnesemia, psychogenic, this is not meant to be an all-inclusive list. EKG interpreted by me (3pts min.). @ -As above X-rays interpreted by me (1pt min.). @ -None done CT interpreted by me (1pt min.). @ -As above U/S interpreted by me (1pt. min.). @ -None done What testing was considered but not performed or refused? (CT, X-rays, U/S, labs)? Why? @ -See above What meds were considered but not given or refused? Why? @ -See above Did you discuss the management of the patient with other professionals (professionals i.e. ESTEBAN Hunt, HEALTH CARE MARKETING MANAGER, lab, RT, psych nurse, forensic social worker, fulfillment associate, teacher, aoc director intelligence officer, family caseworker)? Give summary @ -Discussed with admitting hospitalist, Dr. Sandra Was smoking cessation discussed for >3mins.? @ -No Was critical care preformed (if so, how long)? @ -No Were there social determinants of health that impacted care today? How? (H omelessness, low income, unemployed, alcoholism, drug addiction, transportation, low edu. Level, literacy, decrease access to med. care, alf, rehab)? @ -No Was there de-escalation of care discussed even if they declined (Discuss DNR or withdrawal of care, Hospice)? DNR status @ -No What co-morbidities impacted this encounter? (DM, HTN, Smoking, COPD, CAD, Cancer, CVA, ARF, Chemo, Hep., AIDS, mental health diagnosis, sleep apnea, morbid obesity)? @ -None Was patient admitted / discharged? Hospital course, mention meds given and route, prescriptions, significant lab abnormalities, going to OR and other pertinent info. @ -See above Undiagnosed new problem with uncertain prognosis? @ -No Drug Therapy requiring intensive monitoring for toxicity (Heparin, Nitro, Insulin, Cardizem)? @ -No Were any procedures done? @ -No Diagnosis/symptom? @ -Seizures Acute, or Chronic, or Acute on Chronic? @ -Acute Uncomplicated (without systemic symptoms) or Complicated (systemic symptoms)? @ -default Side effects of treatment? @ -No Exacerbation, Progression, or Severe Exacerbation? @ -No Poses a threat to life or bodily function? How? (Chest pain, [place], [place], pneumonia, PE, COPD, DKA, ARF, appy, cholecystitis, CVA, Diverticulitis, Homicidal, Suic idal, threat to staff... and all critical care pts) @ -yes - Related Data Home Medications Medication Instructions Recorded Confirmed Sertraline [Zoloft] 100 mg PO QAM 06/01/14 07/11/22 traZODone HCL [Desyrel] 50 mg PO HS 06/01/14 07/11/22 Atorvastatin Calcium [Lipitor] 10 mg PO HS 01/21/19 07/11/22 Aspirin 81 mg PO DAILY 07/11/22 07/11/22 Divalproex [Depakote] 500 mg PO BID 07/11/22 07/11/22 Losartan Potassium [Cozaar] 100 mg PO HS 07/11/22 07/11/22 Magnesium Hydroxide [Milk of 2,400 mg PO DAILY PRN 07/11/22 07/11/22 Magnesia] Meloxicam [Mobic] 7.5 mg PO DAILY 07/11/22 07/11/22 Omeprazole [PriLOSEC] 20 mg PO DAILY 07/11/22 07/11/22 Oxybutynin Chloride [Ditropan XL] 5 mg PO DAILY 07/11/22 07/11/22 Sennosides [Senokot] 8.6 mg PO BID PRN 07/11/22 07/11/22 metFORMIN HCL ER [Glucophage XR] 500 mg PO DAILY 07/11/22 07/11/22 oxyCODONE-APAP 5-325MG [Percocet 1 tab PO Q4HR PRN 07/11/22 07/11/22 5-325 mg] Previous Rx's Medication Instructions Recorded Docusate [Colace] 100 mg PO BID #20 capsule 08/09/20 Allergies Allergy/AdvReac Type Severity Reaction Status Date / Time LANDY Inhibitors Allergy Nausea & Verified 07/11/22 17:46 Vomiting. PASSED OUT amlodipine [From Norvasc] Allergy Nausea & Verified 07/11/22 17:46 Vomiting, PASSED OUT hydrocodone Allergy Unknown Verified 07/11/22 17:46 tramadol Allergy Nausea & Verified 07/11/22 17:46 Vomiting, PASSED OUT codeine AdvReac Nausea Verified 07/11/22 17:46 Review of Systems ROS Statement: Those systems with pertinent positive or pertinent negative responses have been documented in the HPI. ROS Other: All systems not noted in ROS Statement are negative. Past Medical History Past Medical History: Cancer, Diabetes Mellitus, GERD/Reflux, Hyperlipidemia, Hypertension, Liver Disease, Osteoarthritis (OA) Additional Past Medical History / Comment(s): Occ sciatica. Basal cell CA nose. hemorrhoids & some bleeding. ?seizure activity w/dizzyness/weakness few years ago - no seizure meds. Bladder leakage. Varicose veins.enlarged liver History of Any Multi-Drug Resistant Organisms: MRSA Date of last positivie culture/infection: 03/24/2014 MDRO Source:: Face Past Surgical History: Cholecystectomy, Heart Catheterization, Hysterectomy, Joint Replacement, Orthopedic Surgery, Tonsillectomy Additional Past Surgical History / Comment(s): BILATERAL CATARACTS. rashid s [place] rot cuff, ORIF upper rt arm, CARPAL TUNNEL RASHID, BONE REPLACEMENT IN RT WRIST W/ PLATE, CERVICAL NECK SX, bilat elbow tendon SX. BENIGN CYST REMOVED RASHID ARMS AND RT HAND, rashid knee replacements. Past Anesthesia/Blood Transfusion Reactions: Motion Sickness Past Psychological History: Anxiety Smoking Status: Never smoker - Past Family History Mother Family Medical History: Cancer Additional Family Medical History / Comment(s): BREAST Course Vital Signs 07/11/22 07/11/22 07/11/22 15:22 16:00 17:55 Temperature 98.1 F Pulse Rate 65 60 74 Respiratory 16 16 14 Rate Blood Pressure 135/78 132/71 142/76 O2 Sat by Pulse 97 96 96 Oximetry Medical Decision Making - Lab Data Result diagrams: 07/11/22 16:23 07/11/22 16:23 Lab Results 07/11/22 07/11/22 07/11/22 Range/Units 16:23 16:23 16:23 WBC 4.6 (3.8-10.6) k/uL RBC 3.93 (3.80-5.40) m/uL Hgb 11.0 L (11.4-16.0) gm/dL Hct 32.6 L (34.0-46.0) % MCV 83.0 (80.0-100.0) fL MCH 28.0 (25.0-35.0) pg MCHC 33.8 (31.0-37.0) g/dL RDW 14.3 (11.5-15.5) % Plt Count 207 (150-450) k/uL MPV 8.0 Neutrophils % 57 % Lymphocytes % 23 % Monocytes % 10 % Eosinophils % 8 % Basophils % 1 % Neutrophils # 2.6 (1.3-7.7) k/uL Lymphocytes # 1.1 (1.0-4.8) k/uL Monocytes # 0.5 (0-1.0) k/uL Eosinophils # 0.4 (0-0.7) k/uL Basophils # 0.1 (0-0.2) k/uL Sodium 136 L (137-145) mmol/L Potassium 3.7 (3.5-5.1) mmol/L Chloride 102 (98-107) mmol/L Carbon Dioxide 32 H (22-30) mmol/L Anion Gap 2 mmol/L BUN 18 H (7-17) mg/dL Creatinine 0.51 L (0.52-1.04) mg/dL Est GFR (CKD-EPI)AfAm >90 (>60 ml/min/1.73 sqM) Est GFR (CKD-EPI)NonAf >90 (>60 ml/min/1.73 sqM) Glucose 75 (74-99) mg/dL Plasma Lactic Acid Stew 1.7 (0.7-2.0) mmol/L Calcium 8.2 L (8.4-10.2) mg/dL Magnesium 1.7 (1.6-2.3) mg/dL Total Bilirubin 0.6 (0.2-1.3) mg/dL AST 32 (14-36) U/L ALT 20 (4-34) U/L Alkaline Phosphatase 54 (38-126) U/L Total Protein 5.7 L (6.3-8.2) g/dL Albumin 3.2 L (3.5-5.0) g/dL Disposition Clinical Impression: Seizure Disposition: ADMITTED IP TO THIS HOSP Condition: Fair Referrals: Luma Mcconnell DO [Primary Care Provider] - 1-2 days Decision Time: 18:58
[2022-07-11 16:51] LABS: ALT 20 U/L (4-34); African American GFR (CKD) >90 (>60 ml/min/1.73 sqM); Albumin 3.2 g/dL (3.5-5.0); Anion Gap 2 mmol/L; Blood Urea Nitrogen 18 mg/dL (7-17); Calcium 8.2 mg/dL (8.4-10.2); Carbon Dioxide 32 mmol/L (22-30); Chloride 102 mmol/L (98-107); Glucose 75 mg/dL (74-99); Non-African American GFR(CKD) >90 (>60 ml/min/1.73 sqM); Sodium 136 mmol/L (137-145); Total Bilirubin 0.6 mg/dL (0.2-1.3); Total Protein 5.7 g/dL (6.3-8.2)
[2022-07-11 16:55] LABS: Magnesium 1.7 mg/dL (1.6-2.3); Potassium 3.7 mmol/L (3.5-5.1)
[2022-07-11 16:56] LABS: AST 32 U/L (14-36); Alkaline Phosphatase 54 U/L (38-126)
[2022-07-11 17:17] LABS: Basophils # (A) 0.1 k/uL (0-0.2); Basophils % (A) 1 %; Eosinophils # (A) 0.4 k/uL (0-0.7); Eosinophils % (A) 8 %; HCT 32.6 % (34.0-46.0); Lymphocytes # (A) 1.1 k/uL (1.0-4.8); Lymphocytes % (A) 23 %; MCHC 33.8 g/dL (31.0-37.0); Monocytes # (A) 0.5 k/uL (0-1.0); Monocytes % (A) 10 %; Neutrophils # (A) 2.6 k/uL (1.3-7.7); Neutrophils % (A) 57 %; Platelet Count 207 k/uL (150-450); RBC 3.93 m/uL (3.80-5.40); RDW 14.3 % (11.5-15.5); WBC 4.6 k/uL (3.8-10.6)
--- NOTE | 2022-07-11 17:30 | CT ---
EXAMINATION TYPE: CT brain wo con DATE OF EXAM: 07/11/2022 HISTORY: Multiple seizures. Pt poor historian CT DLP: 1099.4 mGycm. Automated Exposure Control for Dose Reduction was Utilized. TECHNIQUE: CT scan of the head is performed without contrast. COMPARISON: CT brain September 22, 2018. FINDINGS: There is no acute intracranial hemorrhage or midline shift identified. There is mild vent ricular and sulcal prominence consistent with diffuse age-related cerebral atrophy. Some scattered ar eas of low attenuation in the white matter are again seen, nonspecific finding. The globes are intac t and the visualized sinuses are clear. IMPRESSION: No acute intracranial hemorrhage or midline shift. There is mild diffuse cerebral atrop hy and nonspecific white matter changes redemonstrated. No significant change from prior CT.
[2022-07-11] MEDS ORDERED: NALOXONE 0.4 MG/ML 1 ML VIAL IV PRN (18:45)
[2022-07-11] MEDS: LOSARTAN 50 MG TAB PO SCH (21:51)
[2022-07-11] MEDS ORDERED: LORazepam 2 MG/ML INJ ONE (22:10)
[2022-07-11 22:22] LABS: Glucose,Whole Blood 105 mg/dL (70-110)
[2022-07-12] MEDS: SODIUM CHLORIDE 0.9% 1,000 ML IV SCH ×2 (01:19→22:52)
[2022-07-12 07:37] LABS: Basophils % (A) 1 %; Eosinophils # (A) 0.4 k/uL (0-0.7); Eosinophils % (A) 10 %; HCT 36.7 % (34.0-46.0); HGB 11.9 gm/dL (11.4-16.0); Lymphocytes # (A) 1.1 k/uL (1.0-4.8); Lymphocytes % (A) 24 %; MCH 27.7 pg (25.0-35.0); MCHC 32.6 g/dL (31.0-37.0); MCV 85.1 fL (80.0-100.0); Mean Platelet Volume 7.7; Monocytes # (A) 0.4 k/uL (0-1.0); Monocytes % (A) 9 %; Neutrophils # (A) 2.4 k/uL (1.3-7.7); Neutrophils % (A) 53 %; Platelet Count 213 k/uL (150-450); RBC 4.31 m/uL (3.80-5.40); RDW 14.7 % (11.5-15.5); WBC 4.5 k/uL (3.8-10.6)
--- NOTE | 2022-07-12 07:37 | HP ---
HISTORY AND PHYSICAL CHIEF COMPLAINT: Seizures. HISTORY OF PRESENT ILLNESS: This 76-year-old woman with a past medical history of multiple medical problems, diabetes mellitus, hypertension, hyperlipidemia, seizure disorder, had recent shoulder surgery in [facility]. Subsequently, the patient was sent to rehab. Apparently in the rehab, the patient had multiple seizures, taken to [facility] and admitted for further evaluation and treatment. Apparently, post surgery also the patient had seizures and the patient is taking seizure medications according to the family. Compliance is unknown. The patient is sedated post Ativan and unable to take history, most of the history is taken by discussion with staff, the ER physician as well and review of the chart and also discussion with the family members. Rest of the history is reviewed. PAST MEDICAL HISTORY: Reviewed, include diabetes mellitus, hypertension. Rest of the history is reviewed. MEDICATIONS: Include trazodone, dose and rest of medications reviewed. ALLERGIES: Reviewed include LANDY inhibitors. The rest of the allergies reviewed. FAMILY HISTORY: History of breast cancer. SOCIAL HISTORY: History of anxiety. REVIEW OF SYSTEMS: Could not be taken. PHYSICAL EXAMINATION: VITAL SIGNS: Pulse is 65, blood pressure 135/78, respirations 16. HEENT: Conjunctivae normal. NECK: No JVD. CARDIOVASCULAR: S1, S2 muffled. RESPIRATIONS: Breath sounds diminished at the bases. No rhonchi. No crackles. ABDOMEN: Soft, nontender. LEGS: No edema. No swelling. NERVOUS SYSTEM: The patient is sedated. Full exam is not possible. SKIN: No ulcers, rash, or bleeding. JOINTS: No active deforming arthropathy. Status post right surgery. LABS: Lactic acid 1.7. The rest of the labs are not available. ASSESSMENT: 1. Acute seizure disorder, generalized tonic-clonic and breakthrough seizures. 2. History of recent shoulder surgery. 3. History of seizure surgery. 4. Diabetes mellitus, type 2. 5. Hypertension. 6. Hyperlipidemia. RECOMMENDATIONS: Recommend to continue current medications. Continue symptomatic treatment. At this time, I would also recommend a CT of the brain and further workup. The patient did have pancreas MRI which showed no mass or no common duct stone. Otherwise, we will continue to monitor. We will resume the home medications once they are confirmed. We will closely follow. Neurology will be consulted. Further recommendations to follow. Prognosis guarded. MMODL / IJN: [id number] /
--- NOTE | 2022-07-12 07:43 | P.HPIM ---
History of Present Illness This is a pleasant 76 years old female with past medical history of Diabetes Mellitus, GERD/Reflux, Hyperlipidemia, Hypertension, Liver Disease, Osteoarthritis , Occ sciatica. Seizure activity and no seizure medication. Patient was sent from [facility] for suspected seizure, as per document 5 suspected seizure there. She had recent surgery in her right shoulder at [facility] about one week earlier. Patient underwent right reverse shoulder arthroplasty by Dr. Cisneros on 06/26/2022. After the procedure patient reported has potential generalized seizure activity and she was postictal, prior to that she was not on any antiepileptic medication, she was initially started on Keppra did have EEG which showed findings consistent with mild encephalopathy with no epileptiform activity. Neurology evaluated the patient and because of psych elements her antiseizure medication which change to Depakote on 06/27/2022. Depakote level was checked in the hospital and was therapeutic. While she was in the hospital last night she has to O's each one lasted less than a minute as per staff in which she had jerky symmetrical movement of both upper extremities, not associated with confusion or post ictal, no urine or bowel incontinence, no tongue biting, no generalized tonic-clonic contractured. Patient is awake and alert to time place and person, she knows she is in [place], she needed to be reminded she is in the hospital, she knows she was in rehab because she had recent surgery to her shoulder and she is oriented to time and person. She denies any specific complaints this morning than feeling tired, she denies headache dizziness weakness or numbness. No chest pain or dyspnea. No other new GI or urinary symptoms. Of note patient was taken oxycodone every 4 hours Vitas looks stable and patient is afebrile Labs reviewed with hemoglobin 11. Sodium 136, creatinine 0.5. Liver enzymes are not elevated. Valproic acid 64.5 which is within therapeutic range CT of the brain no acute intracranial hemorrhage or midline shift. No significant change from prior CT EKG: Normal sinus rhythm at [address]-T changes, QTC 422 Review of Systems Review of systems CONSTITUTIONAL: No fever, no malaise, no fatigue. HEENT: No recent visual problems or hearing problems. Denied any sore throat. CARDIOVASCULAR: No orthopnea, PND, no palpitations, no syncope. PULMONARY: No shortness of breath, no cough, no hemoptysis. GASTROINTESTINAL: No diarrhea, no nausea, no vomiting, no abdominal pain. Normoactive bowel sounds. NEUROLOGICAL: No headaches, no weakness, no numbness. HEMATOLOGICAL: Denies any bleeding or petechiae. GENITOURINARY: Denies any burning micturition, frequency, or urgency. MUSCULOSKELETAL/RHEUMATOLOGICAL: Denies any joint pain, swelling, or any muscle pain. ENDOCRINE: Denies any polyuria or polydipsia. Past Medical History Past Medical History: Cancer, Diabetes Mellitus, GERD/Reflux, Hyperlipidemia, Hypertension, Liver Disease, Osteoarthritis (OA) Additional Past Medical History / Comment(s): Occ sciatica. Basal cell CA nose. hemorrhoids & some bleeding. ?seizure activity w/dizzyness/weakness few years a go - no seizure meds. Bladder leakage. Varicose veins.enlarged liver History of Any Multi-Drug Resistant Organisms: MRSA Date of last positivie culture/infection: 03/24/2014 MDRO Source:: Face Past Surgical History: Cholecystectomy, Heart Catheterization, Hysterectomy, Joint Replacement, Orthopedic Surgery, Tonsillectomy Additional Past Surgical History / Comment(s): BILATERAL CATARACTS. rashid shoulder rot cuff, ORIF upper rt arm, CARPAL TUNNEL RASHID, BONE REPLACEMENT IN RT WRIST W/ PLATE, CERVICAL NECK SX, bilat elbow tendon SX. BENIGN CYST REMOVED RASHID ARMS AND RT HAND, rashid knee replacements. Past Anesthesia/Blood Transfusion Reactions: Motion Sickness Past Psychological History: Anxiety Additional Psychological History / Comment(s): "a lot of stress" Smoking Status: Never smoker Past Alcohol Use History: None Reported Past Drug Use History: None Reported - Past Family History Mother Family Medical History: Cancer Additional Family Medical History / Comment(s): BREAST Medications and Allergies Home Medications Medication Instructions Recorded Confirmed Type Sertraline [Zoloft] 100 mg PO QA 06/01/14 07/11/22 History traZODone HCL [Desyrel] 50 mg PO HS 06/01/14 07/11/22 History Atorvastatin Calcium [Lipitor] 10 mg PO HS 01/21/19 07/11/22 History Docusate [Colace] 100 mg PO BID #20 capsule 08/09/20 07/11/22 Rx Aspirin 81 mg PO DAILY 07/11/22 07/11/22 History Divalproex [Depakote] 500 mg PO BID 07/11/22 07/11/22 History Losartan Potassium [Cozaar] 100 mg PO HS 07/11/22 07/11/22 History Magnesium Hydroxide [Milk of 2,400 mg PO DAILY PRN 07/11/22 07/11/22 History Magnesia] Meloxicam [Mobic] 7.5 mg PO DAILY 07/11/22 07/11/22 History Omeprazole [PriLOSEC] 20 mg PO DAILY 07/11/22 07/11/22 History Oxybutynin Chloride [Ditropan XL] 5 mg PO DAILY 07/11/22 07/11/22 History Sennosides [Senokot] 8.6 mg PO BID PRN 07/11/22 07/11/22 History metFORMIN HCL ER [Glucophage XR] 500 mg PO DAILY 07/11/22 07/11/22 History oxyCODONE-APAP 5-325MG [Percocet 1 tab PO Q4HR PRN 07/11/22 07/11/22 History 5-325 mg] Allergies Allergy/AdvReac Type Severity Reaction Status Date / Time LANDY Inhibitors Allergy Nausea & Verified 07/11/22 17:46 Vomiting. PASSED OUT amlodipine [From Norvasc] Allergy Nausea & Verified 07/11/22 17:46 Vomiting, PASSED OUT hydrocodone Allergy Unknown Verified 07/11/22 17:46 tramadol Allergy Nausea & Verified 07/11/22 17:46 Vomiting, PASSED OUT codeine AdvReac Nausea Verified 07/11/22 17:46 Physical Exam Vitals: Vital Signs Temp Pulse Pulse Resp BP BP Pulse Ox 07/12/22 04:00 98.1 F 57 L 15 176/97 97 07/11/22 19:51 58 L 16 131/68 98 07/11/22 19:24 98.1 F 57 L 15 165/79 97 07/11/22 17:55 74 14 142/76 96 07/11/22 16:00 60 16 132/71 96 07/11/22 15:22 98.1 F 65 16 135/78 97 Intake and Output 07/11/22 07/12/22 07/12/22 22:59 06:59 14:59 Other: Voiding Method Diaper Weight 58.967 kg -GENERAL: The patient is alert and oriented x3, not in any acute distress. Well developed, well nourished. Generally tired HEENT: Pupils are round and equally reacting to light. EOMI. No scleral icterus. No conjunctival pallor. Normocephalic, atraumatic. No pharyngeal erythema. No th yromegaly. CARDIOVASCULAR: S1 and S2 present. No murmurs, rubs, or gallops. PULMONARY: Chest is clear to auscultation, no wheezing or crackles. ABDOMEN: Soft, nontender, nondistended, normoactive bowel sounds. No palpable organomegaly. -MUSCULOSKELETAL: No joint swelling or deformity. Right shoulder surgical wound is closed with sutures in place, no shoulder swelling or deformity. Sling is in a Place EXTREMITIES: No cyanosis, clubbing, or pedal edema. NEUROLOGICAL: Gross neurological examination did not reveal any focal deficits. SKIN: No rashes. no petechiae. Results CBC & Chem 7: 07/11/22 16:23 07/11/22 16:23 Labs: Abnormal Lab Results - Last 24 Hours (Table) 07/11/22 07/11/22 Range/Units 16:23 16:23 Hgb 11.0 L (11.4-16.0) gm/dL Hct 32.6 L (34.0-46.0) % Sodium 136 L (137-145) mmol/L Carbon Dioxide 32 H (22-30) mmol/L BUN 18 H (7-17) mg/dL Creatinine 0.51 L (0.52-1.04) mg/dL Calcium 8.2 L (8.4-10.2) mg/dL Total Protein 5.7 L (6.3-8.2) g/dL Albumin 3.2 L (3.5-5.0) g/dL Thrombosis Risk Factor Assmnt - Choose All That Apply Any of the Below Risk Factors Present?: Yes Each Factor Represents 1 point: History of prior major surgery (<1month) Other Risk Factors: Yes Each Risk Factor Represents 2 Points: Age 61-74 years, Patient confined to bed Other congenital or acquired thrombophilia - If yes, enter type in comment: No Thrombosis Risk Factor Assessment Total Risk Factor Score: 5 Thrombosis Risk Factor Assessment Level: High Risk Assessment and Plan Assessment: Suspected seizure like activity versus myoclonic jerks, possible secondary to pain medication Recent shoulder surgery, right reverse shoulder arthroplasty by Dr. Cisneros on 06/26/2022 Diabetes mellitus Hypertension Hyperlipidemia History of osteoarthritis Plan: Continue with Ativan when necessary Neurology consult Continue with Depakote, and follow-up recommendation of the neurologist Check hemoglobin A1c Labs and medication were reviewed.. Continue same treatment. Continue with symptomatic treatment. Resume home medication. Monitor lytes and vitals. DVT and GI prophylaxis. Further recommendations as per clinical course of the patient DVT prophylaxis: Subcutaneous heparin GI Prophylaxis: Pepcid PT/OT: Pending Prognosis is guarded
[2022-07-12 07:48] LABS: Potassium 3.5 mmol/L (3.5-5.1)
[2022-07-12 07:50] LABS: African American GFR (CKD) >90 (>60 ml/min/1.73 sqM); Anion Gap 3 mmol/L; Blood Urea Nitrogen 13 mg/dL (7-17); Calcium 8.5 mg/dL (8.4-10.2); Carbon Dioxide 33 mmol/L (22-30); Chloride 101 mmol/L (98-107); Glucose 72 mg/dL (74-99); Non-African American GFR(CKD) >90 (>60 ml/min/1.73 sqM); Sodium 137 mmol/L (137-145)
[2022-07-12] MEDS: ASPIRIN 81 MG PO SCH (08:44)
[2022-07-12] MEDS: DOCUSATE 100 MG CAP PO SCH ×2 (08:44→20:23)
[2022-07-12] MEDS: DIVALPROEX 500 MG TABLET.DR PO SCH ×2 (08:44→20:23)
[2022-07-12] MEDS ORDERED: MAGNESIUM HYDROXIDE 2,400 MG/10 ML CUP PO PRN (15:53)
[2022-07-12] MEDS ORDERED: SENNOSIDES 8.6 MG TAB PO PRN (15:53)
[2022-07-12] MEDS ORDERED: hydrALAZINE HCL 20 MG/ML 1 ML VIAL IVP PRN (15:54)
[2022-07-12] MEDS: hydrALAZINE HCL 50 MG TAB PO SCH ×2 (17:30→21:41)
[2022-07-12] MEDS: LOSARTAN 50 MG TAB PO SCH (20:23)
[2022-07-12] MEDS: ATORVASTATIN 10 MG TAB PO SCH (20:23)
[2022-07-12] MEDS: traZODone HCL 50 MG TAB PO SCH (20:23)
--- NOTE | 2022-07-12 21:05 | P.CNNES ---
History of Present Illness Consult date: 07/12/22 Requesting physician: Damon Sandra Reason for Consult: Seizure History of Present Illness: Patient is a 76-year-old female who recently underwent right shoulder surgery on 06/26/2022 started having seizures afterwards. Patient came to the hospital by ambulance yesterday at 3:11 PM for seizures. As per EMS flow sheet, staff mentioned that patient had 5 seizures in the afternoon. Patient has been struggling with new onset seizure activity after shoulder reconstruction surgery 1 week ago. Seizures only lasts for a minute or 2 and then patient regains consciousness almost immediately. Patient was alert and oriented 4. Patient denied any headache. Patient had just received 2 mg of Ativan prior to EMS arrival. Patient's vitals at the scene was blood pressure 155/73, pulse rate 73, respirations 16, saturation 94%. I was called last night by the nurse via perfect serve at 10:19 PM when the nurse reported that when she entered the room to help her use bathroom, she was sitting up in bed shaking. She then laid her back down in the bed and continued to shake. She was unresponsive for about a minute. Right after she was responding but she continued to be lethargic. Patient was given Ativan. This morning, when I saw the patient, patient's nurse reported that after the PT session, patient has an episode of shaking in which she was thrashing in the bed. Her blood pressure was high. Patient complaining of feeling dizzy when she is up on her feet. Complaining of pain 7/10 in the right shoulder. Patient states that she had 3-4 seizures since she arrived here. She has several seizures prior, total about 10-11. Patient has been placed on Depakote at outside hospital. CT head showed no acute intracranial hemorrhage or midline shift. There is mild diffuse cerebral atrophy and nonspecific white matter changes. Blood sugar 96. Blood tests showed normal CBC with hemoglobin 11.0. Sodium 136 potassium 3.7. BUN 18, creatinine 0.51. Both normal. Hepatic panel normal. Depakote was 64.5 which is therapeutic. EKG with normal sinus rhythm. Patient currently on Depakote 500 mg twice a day, oxybutynin 5 mg daily, aspirin 81 mg, losartan, meloxicam, metformin, omeprazole, oxycodone, Lipitor 10 mg, sertraline 100 mg and trazodone 50 mg. Patient denies any family history of seizures. Patient denies any history of stroke, TIA or any history of head injuries. She states that she lives with her daughter and uses cane for walking. Denies any history of seizures prior to her shoulder surgery. I spoke to patient's daughter on the phone. She mentioned that patient had history of seizures about 3-4 years ago after she had some eye surgery. She was not treated after those seizures. After her right shoulder surgery, patient had about 8 seizures in 24 hours. She was started on Depakote. She was seizure- free until yesterday when she had total of 6 seizures. Patient's daughter also mentions that patient has history of some psych problems for almost 1-1/2 years. Patient would say something or does something which does not make sense. She also see people, possible hallucinates. Sometimes she would be slurring her words like she is drunk. Next day she would not remember what she was talking about. Patient has no history of tobacco or alcohol use in the past. Patient has been living with her daughter for the last 1-1/2 years. Review of Systems Constitutional: Denies chills, Denies fever Eyes: denies blurred vision, denies pain Ears: deny: decreased hearing, ear discharge, earache Ears, nose, mouth and throat: Denies headache, Denies sore throat Cardiovascular: Denies chest pain, Denies shortness of breath Respiratory: Denies cough Gastrointestinal: Denies abdominal pain, Denies diarrhea, Denies nausea, Denies vomiting Musculoskeletal: Reports low back pain, Reports muscle weakness, Reports myalgias Integumentary: Denies pruritus, Denies rash Neurological: Reports as per HPI Past Medical History Past Medical History: Cancer, Diabetes Mellitus, GERD/Reflux, Hyperlipidemia, Hypertension, Liver Disease, Osteoarthritis (OA) Additional Past Medical History / Comment(s): Occ sciatica. Basal cell CA nose. hemorrhoids & some bleeding. ?seizure activity w/dizzyness/weakness few years ago - no seizure meds. Bladder leakage. Varicose veins.enlarged liver History of Any Multi-Drug Resistant Organisms: MRSA Date of last positivie culture/infection: 03/24/2014 MDRO Source:: Face Past Surgical History: Cholecystectomy, Heart Catheterization, Hysterectomy, Joint Replacement, Orthopedic Surgery, Tonsillectomy Additional Past Surgical History / Comment(s): BILATERAL CATARACTS. rashid shoulder rot cuff, ORIF upper rt arm, CARPAL TUNNEL RASHID, BONE REPLACEMENT IN RT WRIST W/ PLATE, CERVICAL NECK SX, bilat elbow tendon SX. BENIGN CYST REMOVED RASHID ARMS AND RT HAND, rashid knee replacements. Past Anesthesia/Blood Transfusion Reactions: Motion Sickness Past Psychological History: Anxiety Additional Psychological History / Comment(s): "a lot of stress" Smoking Status: Never smoker Past Alcohol Use History: None Reported Past Drug Use History: None Reported - Past Family History Mother Family Medical History: Cancer Additional Family Medical History / Comment(s): BREAST Medications and Allergies Home Medications Medication Instructions Recorded Confirmed Type Sertraline [Zoloft] 100 mg PO QAM 06/01/14 07/11/22 History traZODone HCL [Desyrel] 50 mg PO HS 06/01/14 07/11/22 History Atorvastatin Calcium [Lipitor] 10 mg PO HS 01/21/19 07/11/22 History Docusate [Colace] 100 mg PO BID #20 capsule 08/09/20 07/11/22 Rx Aspirin 81 mg PO DAILY 07/11/22 07/11/22 History Divalproex [Depakote] 500 mg PO BID 07/11/22 07/11/22 History Losartan Potassium [Cozaar] 100 mg PO HS 07/11/22 07/11/22 History Magnesium Hydroxide [Milk of 2,400 mg PO DAILY PRN 07/11/22 07/11/22 History Magnesia] Meloxicam [Mobic] 7.5 mg PO DAILY 07/11/22 07/11/22 History Omeprazole [PriLOSEC] 20 mg PO DAILY 07/11/22 07/11/22 History Oxybutynin Chloride [Ditropan XL] 5 mg PO DAILY 07/11/22 07/11/22 History Sennosides [Senokot] 8.6 mg PO BID PRN 07/11/22 07/11/22 History metFORMIN HCL ER [Glucophage XR] 500 mg PO DAILY 07/11/22 07/11/22 History oxyCODONE-APAP 5-325MG [Percocet 1 tab PO Q4HR PRN 07/11/22 07/11/22 History 5-325 mg] Allergies Allergy/AdvReac Type Severity Reaction Status Date / Time LANDY Inhibitors Allergy Nausea & Verified 07/11/22 17:46 Vomiting. PASSED OUT amlodipine [From Norvasc] Allergy Nausea & Verified 07/11/22 17:46 Vomiting, PASSED OUT hydrocodone Allergy Unknown Verified 07/11/22 17:46 tramadol Allergy Nausea & Verified 07/11/22 17:46 Vomiting, PASSED OUT codeine AdvReac Nausea Verified 07/11/22 17:46 Physical Examination - Vital Signs Vital Signs: Vital Signs Temp Pulse Pulse Pulse Resp BP BP 07/12/22 11:51 69 16 165/93 07/12/22 08:48 97.4 F L 60 16 151/97 07/12/22 04:00 98.1 F 57 L 15 176/97 07/11/22 19:51 58 L 16 131/68 07/11/22 19:24 98.1 F 57 L 15 165/79 07/11/22 17:55 74 14 142/76 07/11/22 16:00 60 16 132/71 07/11/22 15:22 98.1 F 65 16 135/78 Pulse Ox 07/12/22 11:51 99 07/12/22 08:48 97 07/12/22 04:00 97 07/11/22 19:51 98 07/11/22 19:24 97 07/11/22 17:55 96 07/11/22 16:00 96 07/11/22 15:22 97 Intake and Output 07/11/22 07/12/22 07/12/22 22:59 06:59 14:59 Other: Voiding Method Diaper Diaper External Catheter Weight 58.967 kg Patient is an elderly female, in no acute distress. Patient is alert awake oriented to time place and person. She knows that she is in [facility] in [facility], the month and year and name of the current president. Speech and language functions are normal. Patient can name and repeat very well. No aphasia or dysarthria. Attention, concentration and fund of knowledge is adequate. On cranial nerve examination, pupils are equal, round and reacting to light, visual olvera are full on confrontation, with no neglect on double simultaneous stimulation. Extraocular muscles are intact with no nystagmus. Face is symmetric, tongue protrudes to the midline. No evidence of oral trauma or tongue bite kallie. Palatal elevation and sensation normal, hearing and shoulder shrug normal, facial sensation normal. On muscle strength testing, the right upper ex-symmetry not tested as it is in the brace. Left upper extremity diffusely 4+5- with give way weakness. Hip flexion 4+/4, ankle dorsiflexion 5/5. Deep tendon reflexes are symmetric knees 2, ankles 1. Left biceps 2, left brachioradialis 1, right side not checked. Plantars are downgoing bilaterally. Sensory to touch is equal with no neglect on double simultaneous stimulation. Cerebellar function showed no ataxia for [id number] testing on the left. No ataxia for [id number] testing on either side. Tone and bulk of muscles normal. Gait deferred.. On general examination, there is no carotid bruit or murmur, S1-S2 audible. Chest is clear on consultation. Abdomen is soft nontender. No organomegaly, bowel sounds present. Peripheral pulses are present. No edema. Results - Laboratory Findings CBC and BMP: 07/12/22 06:17 07/12/22 06:17 Abnormal Lab Findings: Abnormal Labs 07/11/22 07/11/22 07/12/22 16:23 16:23 06:17 Hgb 11.0 L Hct 32.6 L Sodium 136 L Carbon Dioxide 32 H 33 H BUN 18 H Creatinine 0.51 L Glucose 72 L Calcium 8.2 L Total Protein 5.7 L Albumin 3.2 L Assessment and Plan Assessment: * New onset seizure disorder since patient underwent right shoulder surgery on 06/26/2022. Uncertain if epileptic or nonepileptic seizures. Patient states that she is sensitive to anesthesia, which ?may have triggered these spells. Patient has history of transient seizures after her eye surgery 3-4 years ago, not on medication, seizure free until she had these after her right shoulder surgery. * Diabetes * Hyperlipidemia * Hypertension * Liver disease * Osteoarthritis Plan: * Patient had an EEG performed today, which was mildly abnormal because of disorganization and excessive fast frequency activity suggestive of medication effect and/or encephalopathy. No epileptiform activity was seen. * Patient's Depakote level is therapeutic 64.5. We will increase dose of Depakote to 750 mg twice a day, to bring levels further up. If she has any breakthrough seizures, would suggest switching to an alternate medication. * Ammonia is normal 14. * Check MRI of the brain with and without contrast for new onset seizures. * Patient also has some psychiatric issues going on for last 1-1/2 years, with seeing people, or talking or saying something which does not make sense. Patient's daughter request psychiatry consultation. * Check B12, folate, TSH. * Recommend patient follow up with neurologist as an outpatient after discharge. * Dr. Alfredo will start neurology service over the weekend. Time with Patient: Greater than 30
[2022-07-13] MEDS: oxyCODONE-APAP 5-325MG 1 EACH TAB PO PRN ×3 (00:11→11:56)
--- NOTE | 2022-07-13 01:43 | EEG ---
ELECTROENCEPHALOGRAM REPORT PREAMBLE: This is a 76-year-old female with seizures. CURRENT MEDICATIONS: Depakote. EEG FINDINGS: This is a 21-channel digital EEG recorded with video competent, utilizing 10/20 international system with referential and bipolar montages. Background consists of well developed, well regulated, mixed frequencies of fast frequency beta intermixed with some theta activity seen in bihemispheric region. Background is posterior dominant and seems to be reactive to eye opening and closing. Intermittent well-formed alpha activity in 10 to 11 hertz was also seen. Photic driving response was seen with some flash frequencies. Stage 2 sleep was seen with presence of vertex waves and sleep spindles. No focal or generalized epileptiform activity was seen. EKG channel showed no obvious arrhythmia. IMPRESSION: This is a mildly abnormal EEG due to the background disorganization and slightly excessive fast frequency beta activity. This may be suggestive of mild encephalopathy or medication effect. No epileptiform activity was seen. MMODL / IJN: [id number] / MTDD
[2022-07-13] MEDS: PANTOPRAZOLE 40 MG TABLET PO SCH (06:29)
--- NOTE | 2022-07-13 06:43 | PN ---
PROGRESS NOTE DATE OF SERVICE: 07/12/2022 SUBJECTIVE: This 76 woman who was admitted with seizures, also complains of some pain and also elevated blood pressure. No chest pain. No palpitations. No fever. OBJECTIVE: VITAL SIGNS: Pulse 64, blood pressure 150/70, and respirations 17. HEENT: Conjunctivae normal. CARDIOVASCULAR: ntd. LABORATORY DATA: Reviewed. ASSESSMENT: 1. Acute tonic-clonic seizures with possibly breakthrough seizures. 2. History of recent shoulder surgery. 3. History of seizure after surgery. 4. Diabetes mellitus, type 2. 5. Hypertension. 6. Hyperlipidemia. 7. Multiple medical issues. RECOMMENDATION: I recommend to continue current management and symptomatic treatment. Neurology consultation. Otherwise, adjust medications. Repeat labs. Prognosis guarded. Further recommendations to follow. MMODL / IJN: [id number] / MTDD
[2022-07-13] MEDS: SERTRALINE 50 MG TAB PO SCH (07:57)
[2022-07-13] MEDS: DIVALPROEX ER 500 MG TAB.ER.24H PO SCH (07:58)
[2022-07-13] MEDS: hydrALAZINE HCL 50 MG TAB PO SCH ×3 (07:58→20:45)
[2022-07-13] MEDS: DOCUSATE 100 MG CAP PO SCH ×2 (07:58→20:45)
[2022-07-13] MEDS: OXYBUTYNIN XL 5 MG TAB.ER.24 PO SCH (07:58)
[2022-07-13] MEDS: ASPIRIN 81 MG PO SCH (07:58)
[2022-07-13 08:38] LABS: Basophils % (A) 0 %; Eosinophils # (A) 0.3 k/uL (0-0.7); Eosinophils % (A) 6 %; HGB 12.8 gm/dL (11.4-16.0); Lymphocytes # (A) 1.3 k/uL (1.0-4.8); Lymphocytes % (A) 25 %; MCH 27.1 pg (25.0-35.0); MCHC 32.9 g/dL (31.0-37.0); MCV 82.5 fL (80.0-100.0); Mean Platelet Volume 7.2; Monocytes # (A) 0.5 k/uL (0-1.0); Monocytes % (A) 10 %; Neutrophils % (A) 57 %; Platelet Count 252 k/uL (150-450); RBC 4.72 m/uL (3.80-5.40); RDW 14.2 % (11.5-15.5); WBC 5.3 k/uL (3.8-10.6)
[2022-07-13 08:52] LABS: ALT 17 U/L (4-34); AST 24 U/L (14-36); African American GFR (CKD) >90 (>60 ml/min/1.73 sqM); Albumin 3.4 g/dL (3.5-5.0); Alkaline Phosphatase 76 U/L (38-126); Anion Gap 4 mmol/L; Blood Urea Nitrogen 16 mg/dL (7-17); Calcium 8.9 mg/dL (8.4-10.2); Carbon Dioxide 32 mmol/L (22-30); Chloride 100 mmol/L (98-107); Glucose 85 mg/dL (74-99); Non-African American GFR(CKD) 87 (>60 ml/min/1.73 sqM); Potassium 3.4 mmol/L (3.5-5.1); Sodium 136 mmol/L (137-145); Total Bilirubin 0.5 mg/dL (0.2-1.3); Total Protein 6.1 g/dL (6.3-8.2)
[2022-07-13] MEDS ORDERED: DIVALPROEX 500 MG TABLET.DR PO SCH (09:00)
[2022-07-13] MEDS ORDERED: Potassium Replacement Protocol 1 EACH MISC MISCELLANE PRN (10:10)
[2022-07-13] MEDS: POTASSIUM CHLORIDE ER 20 MEQ TAB.ER PO SCH ×2 (10:18→11:18)
[2022-07-13 10:31] LABS: Vitamin B12 >1800.0 pg/mL (200.0-944.0)
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
[2022-07-13] MEDS: SODIUM CHLORIDE 0.9% 1,000 ML IV SCH (16:59)
[2022-07-13] MEDS: DIVALPROEX 250 MG TABLET.DR PO SCH (20:45)
[2022-07-13] MEDS: traZODone HCL 50 MG TAB PO SCH (20:45)
[2022-07-13] MEDS: ATORVASTATIN 10 MG TAB PO SCH (20:45)
[2022-07-13] MEDS: LOSARTAN 50 MG TAB PO SCH (20:45)
[2022-07-14] MEDS: PANTOPRAZOLE 40 MG TABLET PO SCH (06:56)
[2022-07-14] MEDS: SERTRALINE 50 MG TAB PO SCH (08:03)
[2022-07-14] MEDS: OXYBUTYNIN XL 5 MG TAB.ER.24 PO SCH (08:03)
[2022-07-14] MEDS: ASPIRIN 81 MG PO SCH (08:03)
[2022-07-14] MEDS: hydrALAZINE HCL 50 MG TAB PO SCH ×3 (08:03→20:17)
[2022-07-14] MEDS: DIVALPROEX ER 500 MG TAB.ER.24H PO SCH (08:03)
[2022-07-14] MEDS: DOCUSATE 100 MG CAP PO SCH ×2 (08:03→20:16)
[2022-07-14 09:14] LABS: Basophils % (A) 0 %; Eosinophils # (A) 0.3 k/uL (0-0.7); Eosinophils % (A) 7 %; HCT 38.7 % (34.0-46.0); HGB 12.6 gm/dL (11.4-16.0); Lymphocytes # (A) 1.3 k/uL (1.0-4.8); Lymphocytes % (A) 28 %; MCH 27.2 pg (25.0-35.0); MCHC 32.5 g/dL (31.0-37.0); MCV 83.8 fL (80.0-100.0); Mean Platelet Volume 7.1; Monocytes # (A) 0.4 k/uL (0-1.0); Monocytes % (A) 9 %; Neutrophils # (A) 2.6 k/uL (1.3-7.7); Neutrophils % (A) 55 %; Platelet Count 257 k/uL (150-450); RBC 4.61 m/uL (3.80-5.40); RDW 14.6 % (11.5-15.5); WBC 4.8 k/uL (3.8-10.6)
--- NOTE | 2022-07-14 09:23 | PN ---
PROGRESS NOTE DATE OF SERVICE: 07/13/2022 SUBJECTIVE: This 76-year-old woman was admitted with acute tonic-clonic seizures and breakthrough seizures, is being closely monitored. Neurology has adjusted the medication. No chest pain. No palpitations. No fever. EEG, slightly excessive fast frequency, beta activity. OBJECTIVE: VITAL SIGNS: Pulse is 68, blood pressure 140/70, respirations 20. CHEST: Clear to auscultation. CARDIOVASCULAR: S1 and S2. ABDOMEN: Soft. NERVOUS SYSTEM: Nonfocal. LABORATORY DATA: Potassium 3.4. ASSESSMENT: 1. Acute on chronic seizures with possibly breakthrough seizures. 2. History of recent shoulder surgery. 3. History of recent seizures after surgery. 4. Diabetes mellitus, type 2. 5. Multiple medical issues. RECOMMENDATIONS: Recommend to continue current medications, symptomatic treatment. Supplement potassium. Adjust the seizure medications. Closely follow with Neurology. Guarded prognosis. Further recommendations to follow. MMODL / IJN: [id number] /
[2022-07-14 09:25] LABS: African American GFR (CKD) >90 (>60 ml/min/1.73 sqM); Anion Gap 4 mmol/L; Blood Urea Nitrogen 17 mg/dL (7-17); Calcium 8.9 mg/dL (8.4-10.2); Carbon Dioxide 32 mmol/L (22-30); Chloride 101 mmol/L (98-107); Glucose 89 mg/dL (74-99); Non-African American GFR(CKD) 87 (>60 ml/min/1.73 sqM); Potassium 4.1 mmol/L (3.5-5.1); Sodium 137 mmol/L (137-145)
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
[2022-07-14] MEDS: SODIUM CHLORIDE 0.9% 1,000 ML IV SCH (16:41)
[2022-07-14] MEDS: oxyCODONE-APAP 5-325MG 1 EACH TAB PO PRN ×2 (17:20→20:20)
[2022-07-14] MEDS: DIVALPROEX 250 MG TABLET.DR PO SCH (20:16)
[2022-07-14] MEDS: LOSARTAN 50 MG TAB PO SCH (20:16)
[2022-07-14] MEDS: ATORVASTATIN 10 MG TAB PO SCH (20:16)
[2022-07-14] MEDS: traZODone HCL 50 MG TAB PO SCH (20:16)
[2022-07-15] MEDS: oxyCODONE-APAP 5-325MG 1 EACH TAB PO PRN ×3 (02:32→21:32)
--- NOTE | 2022-07-15 03:36 | PN ---
PROGRESS NOTE DATE OF SERVICE: 07/14/2022 SUBJECTIVE: This 76-year-old woman who was admitted with acute on chronic seizures, possible breakthrough seizures, being closely monitored. No chest pain or palpitations. No fever. OBJECTIVE: VITAL SIGNS: On exam, pulse is 85, blood pressure 101/60, respirations 16. CHEST: Clear to auscultation. CARDIOVASCULAR: S1, S2. ABDOMEN: Soft. NERVOUS SYSTEM: Nonfocal. LABORATORY DATA: Labs are reviewed. ASSESSMENT: 1. Acute on chronic seizure with possible breakthrough seizures. 2. History of recent shoulder surgery. 3. History of recent seizures after surgery. 4. Diabetes, type 2. 5. Multiple medical issues. RECOMMENDATIONS: Recommend to continue current medications and symptomatic treatment. Otherwise, closely follow with Neurology, possibly return to ECF in the next 24 hours. Further recommendations to follow. MMODL / IJN: [id number] /
[2022-07-15] MEDS: PANTOPRAZOLE 40 MG TABLET PO SCH (06:46)
[2022-07-15] MEDS: SODIUM CHLORIDE 0.9% 1,000 ML IV SCH (08:10)
[2022-07-15] MEDS: SERTRALINE 50 MG TAB PO SCH (08:11)
[2022-07-15] MEDS: ASPIRIN 81 MG PO SCH (08:11)
[2022-07-15] MEDS: DOCUSATE 100 MG CAP PO SCH ×2 (08:11→21:02)
[2022-07-15] MEDS: OXYBUTYNIN XL 5 MG TAB.ER.24 PO SCH (08:11)
[2022-07-15] MEDS: hydrALAZINE HCL 50 MG TAB PO SCH ×3 (08:11→21:02)
[2022-07-15] MEDS: DIVALPROEX ER 500 MG TAB.ER.24H PO SCH (08:11)
[2022-07-15] MEDS ORDERED: LORazepam 2 MG/ML INJ IV STA (08:15)
--- NOTE | 2022-07-15 09:43 | MR ---
EXAMINATION TYPE: MR brain wo/w con DATE OF EXAM: 07/15/2022 COMPARISON: CT brain 4 days ago HISTORY: New onset seizures TECHNIQUE: Multiplanar, multisequence images of the brain and brainstem is performed without and with IV contras t, utilizing 6 mL intravenous Gadavist . FINDINGS: Diffusion weighted images demonstrate no evidence of a recent infarct or other diffusion ab normality. There is mild ventricular and sulcal prominence. Scattered foci of T2 hyperintensity are seen throughout the white matter bilaterally. Lesions are nonspecific in appearance and distribution. Approximately 20-30 scattered lesions are seen. No suspicious intraparenchymal blood product on the T2 star weighted images. The hippocampal gyri appear symmetric and felt within normal limits on the T 2 coronal weighted images. Midline structures demonstrate normal morphology. The craniocervical junction appears within normal limits. Post contrast images demonstrate no abnormal enhancement. The dural venous sinuses appear pa tent. The visualized sinuses are clear and the globes are intact. IMPRESSION: There is mild diffuse cerebral atrophy and mild to moderate nonspecific white matter falk ges favor product of chronic small vessel ischemia in patient of this age. No abnormal enhancement is seen. Source of new onset seizures not clearly identified.
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
[2022-07-15] MEDS ORDERED: LOSARTAN 50 MG TAB PO SCH (21:00)
[2022-07-15] MEDS: ATORVASTATIN 10 MG TAB PO SCH (21:02)
[2022-07-15] MEDS: traZODone HCL 50 MG TAB PO SCH (21:02)
[2022-07-15] MEDS: DIVALPROEX 250 MG TABLET.DR PO SCH (21:02)
--- NOTE | 2022-07-15 21:47 | P.PN ---
Subjective Progress Note Date: 07/15/22 Patient is evaluated on stepdown unit today. She is sitting up in chair currently alert x 3. No further reports of seizure like activity and continues on depakote. Reports sharp discomfort to right shoulder mostly positional, currently sling is in place. Patient is noted today that left eye lid is not opening all the way patient dose report left eyelid feeling heavy. Additionally she does report some left leg weakness as well which is noted on exam strength is about 3-4/5 while on the right leg about 4/5 she does have some generalized weakness as well and has been at rehab facility. She underwent total right shoulder arthroplasty recently. Blood pressure noted to be on the lower side today in the high 90s to low 100s systolic. Neurology has been following and patient did have a brain MRI completed today showing mild diffuse cerebral atrophy and mild to moderate nonspecific white matter changes favor product of chronic small vessel ischemia. Source of new onset seizure not clearly identified. Patient does report left sided symptoms seem to have started when the seizure happened. This was discussed with neurology who recommends cervical spine MR which will be done tomorrow. Review of Systems Constitutional: Denied any fatigue denied any fever. Cardio vascular: denied any chest pain, palpitations Gastrointestinal: denied any nausea, vomiting, diarrhea Pulmonary: Denied any shortness of breath cough Neurologic : Reports left eye feeling heavy and left lower extremity weakness All inpatient medications were reviewed and appropriate changes in these medications as dictated in the interval history and assessment and plan. PHYSICAL EXAMINATION: GENERAL: The patient is alert and oriented x3, not in any acute distress. Well developed, well nourished. HEENT: Pupils are round and equally reacting to light. EOMI. No scleral icterus. No conjunctival pallor. Normocephalic, atraumatic. No pharyngeal erythema. No thyromegaly. CARDIOVASCULAR: S1 and S2 present. No murmurs, rubs, or gallops. PULMONARY: Chest is clear to auscultation, no wheezing or crackles. ABDOMEN: Soft, nontender, nondistended, normoactive bowel sounds. No palpable organomegaly. MUSCULOSKELETAL: No joint swelling or deformity. Sharp right sided shoulder pain with positioning. EXTREMITIES: No cyanosis, clubbing, or pedal edema. NEUROLOGICAL: Slight left eye facial droop, left lower extremity weakness 3-4/5 difficult to examine upper extremities as right arm is in sling and also post surgical. SKIN: No rashes. Assessment and Plan Assessment Acute seizure likely nonepileptiform History of recent total right shoulder arthroplasty History of seizure activity a few years ago not on seizure medication History hypertension currently low/normotensive History hyperlipidemia Diabetes Mellitus type 2 GERD History basal cell cancer on nose Osteoarthritis Liver disease GI prophylaxis DVT prophylaxis Full Code Plan Stop hydralazine and decrease losartan Follow up cervical spine MRI Continue current medications and supportive care Possible Return to rehab in the next 24 hours Patient will need to follow with neurology in 1 to 2 weeks post discharge The impression and plan of care has been dictated by Marian iRvera Nurse Practitioner as directed. Dr. Lizeth MD I have performed a history and physical examination and medical decision making of this patient, discussed the same with the dictator, and agree with the dictators assessment and plan as written, documented as a scribe. Based on total visit time, I have performed more than 50% of this visit. Objective - Vital Signs Vital signs: Vital Signs Temp 97.7 F 07/15/22 19:50 Pulse 83 07/15/22 19:50 Resp 18 07/15/22 19:50 BP 112/55 07/15/22 19:50 Pulse Ox 96 07/15/22 19:50 FiO2 Intake & Output 07/15/22 07/15/22 07/16/22 06:59 18:59 06:59 Intake Total 540 118 Output Total 27 Balance 513 118 Intake: Oral 540 118 Output: Post Void Residual 27 Other: Voiding Method Toilet # Voids 1 1 - Labs CBC & Chem 7: 07/14/22 08:58 07/14/22 08:58 Assessment and Plan Time with Patient: Less than 30
[2022-07-15] MEDS: ARTIFICIAL TEARS-HYPROMELLOSE DROPS 15 ML BTL BOTH EYES SCH (22:44)
[2022-07-16] MEDS: PANTOPRAZOLE 40 MG TABLET PO SCH (05:46)
[2022-07-16 08:05] VITALS: RESP 16
[2022-07-16] MEDS: ASPIRIN 81 MG PO SCH (08:15)
[2022-07-16] MEDS: DIVALPROEX ER 500 MG TAB.ER.24H PO SCH (08:15)
[2022-07-16] MEDS: DOCUSATE 100 MG CAP PO SCH (08:15)
[2022-07-16] MEDS: OXYBUTYNIN XL 5 MG TAB.ER.24 PO SCH (08:15)
[2022-07-16] MEDS: SERTRALINE 50 MG TAB PO SCH (08:15)
[2022-07-16] MEDS: oxyCODONE-APAP 5-325MG 1 EACH TAB PO PRN (08:23)
[2022-07-16] MEDS: ARTIFICIAL TEARS-HYPROMELLOSE DROPS 15 ML BTL BOTH EYES SCH (08:23)
[2022-07-16] MEDS ORDERED: LORazepam 2 MG/ML INJ IV STA (08:40)
--- NOTE | 2022-07-16 11:20 | MR ---
EXAMINATION TYPE: MR cervical spine wo/w con DATE OF EXAM: 07/16/2022 INDICATION: Patient age:Female; 76 years old; Reason for study: Left Sided Weakness. COMPARISON: 02/02/2019 CT TECHNIQUE: Multi planar, multi sequence imaging was performed utilizing: T1-weighted, T2-weighted, an d turbo inversion recovery imaging of the cervical spine. IV Contrast: 6 cc Gadavist FINDINGS: Alignment: The cervical vertebral bodies have preserved heights. Alignment is within normal limits gi freeman patient positioning. Bones: No abnormal bony edema on inversion recovery sequences. Ankylosis of C5 and C6 anteriorly. No abnormal postcontrast enhancement. Cord: The spinal cord is unremarkable with regards to their signal intensity and morphology. No abnor mal postcontrast enhancement. Discs: Multilevel disc desiccation. C5-C6 disc space narrowing. C2-C3: No significant disc pathology. The spinal canal is patent. No neural foraminal stenosis. C3-C4: A disc osteophyte complex is present which minimally narrows the ventral subarachnoid space. Bilateral facet and uncovertebral joint arthropathy are present with mild bilateral neural foraminal stenosis. C4-C5: A disc central left osteophyte complex is present with moderate spinal canal stenosis. This di splaces the spinal cord slightly. Bilateral facet and uncovertebral joint arthropathy are present wi th moderate to severe left and mild right neural foraminal stenosis. C5-C6: No significant disc pathology. The spinal canal is patent. Bilateral facet and uncovertebral joint arthropathy are present with moderate bilateral neural foraminal stenosis. C6-C7: No significant disc pathology. The spinal canal is patent. Bilateral facet and uncovertebral joint arthropathy are present with mild bilateral neural foraminal stenosis. C7-T1: No significant disc pathology. The spinal canal is patent. Bilateral facet and uncovertebral joint arthropathy are present with mild bilateral neural foraminal stenosis. Other: None. IMPRESSION: 1. Motion limited evaluation with at least moderate C4-C5 and C5-C6 left neural foraminal stenosis a nd moderate right C5-C6 neural foraminal stenosis. No abnormal postcontrast enhancement. 2. Mild to moderate spinal canal stenosis C4-C5 secondary to disc osteophyte complex. 3. No abnormal postcontrast enhancement to suggest mass or demyelination.
[2022-07-16 11:42] VITALS: BP 108/74; TEMP 97.6
[2022-07-16 13:07] VITALS: PULSE 85
--- NOTE | 2022-07-16 15:20 | P.DS ---
Providers Date of admission: 07/11/22 18:45 Attending physician: Damon Sandra Consults: 07/11/22 16:58 Consult Physician Routine Consulting Provider: Cecile Vinson Consult Reason/Comments: anjel Do you want consulting provider notified?: Yes 07/12/22 20:57 Consult Physician Routine Consulting Provider: Jose Boles Consult Reason/Comments: Hallucinations, possible psych issues. Do you want consulting provider notified?: Yes Primary care physician: Luma Mcconnell Hospital Course: Final Diagnosis Acute seizure likely nonepileptiform History of recent total right shoulder arthroplasty Mild to moderate cervical spinal canal stenosis and moderate neural foraminal stenosis. History of seizure activity a few years ago not on seizure medication History hypertension currently low/normotensive History hyperlipidemia Diabetes Mellitus type 2 GERD History basal cell cancer on nose Osteoarthritis Liver disease Full Code Discharge Disposition Patient is stable for discharge to subacute rehab. Patient will return to [facility]. She has been cleared by neurology and will continue on aspirin 81 mg po daily and lipitor. Patient has undergone recent total right shoulder and continues with immobilizer in place. No further reports of seizure activity and patient continues on oral depakote 500 mg daily and 750 mg at bedtime. Losartan was decreased to 50 mg at bedtime secondary to hypotension and blood pressure has normalized. Repeat BMP in 2 to 3 days. Patient will need to follow up with neurology on discharge in 1 to 2 weeks. Follow up with primary care. Per [place] DMV, patient to avoid driving for 6 months until seizure free, avoid heights, swim unassisted or use heavy machinery. Recommend for patient to follow up with orthopedic surgeon on discharge as previously scheduled. Discuss cervical MRI findings. Hospital Course This is a 76 year old female with medical history of diabetes mellitus, gerd, arthritis, liver disease, hypertension, hyperlipidemia, with history of seizure a few years ago and currently not on seizure medication. Patient was sent to the hospital from rehab for reports of seizure like activity. She has been at rehab secondary to recent total right shoulder. No further reports of seizure like activity and continues on depakote. Neurology has been following and patient did have a brain MRI completed showing mild diffuse cerebral atrophy and mild to moderate nonspecific white matter changes favor product of chronic small vessel ischemia. Source of new onset seizure not clearly identified. Patient does report left sided symptoms seem to have started when the seizure happened. This was discussed with neurology who recommends cervical spine MRI which shows motion limited evaluation with at least moderate C4-C5 and C5-C6 left neural foraminal stenosis and moderate right C5-C6 neural foraminal stenosis. There is mild to moderate spinal canal stenosis C4-C5 secondary to disc osteophyte complex. No abnormal postcontract enhancement to suggest mass or demyelination. TSH normal at 1.650, Vitamin B12 and Folate within normal limits. Hemoglobin slightly low at 11.0 on admission which has since normalized and patient has unremarkable CBC. Kidney function stable. Has remain afebrile, denies chest pain, shortness of breath. No numbness or tingling lower or upper extremity. Patient is cleared for discharge to return to subacute rehab and recommend to fo llow up with orthopedic surgeon as previously scheduled and to discuss MRI findings. Patient to also follow up with neurology in 1 to 2 weeks on discharge. 07/16/2022 Patient is evaluated today sitting up in chair. Underwent Cervical spine MRI today secondary to left sided weakness showing moderate neural foraminal stenosis in cervical spine as well as mild to moderate spinal canal stenosis C4-C5. Denies chest pain, denies shortness of breath. No nausea, vomiting or diarrhea. Tolerating diet. Pain is currently controlled. Labs are essentially unremarkable. Her lungs are clear, S1 S2 auscultated and maintaining sinus rhythm. No further episode of seizure like activity. She is alert x 3. Slightly drowsy today from receiving sedation for MRI today. Patient is afebrile, heart rate 85, blood pressure 108/74, 98% on room air. Patient to be discharged to subacute rehab today with outpatient neurology evaluation recommended. Follow up with orthopedics. Patient is afebrile, heart rate 85, blood pressure 108/74, 98% room air. Total time taken in discharge planning greater than 35 minutes. Please see medication reconciliation for a list of current medication. Thank you for allowing us to participate in the care of this patient. The impression and plan of care has been dictated by Marian Rivera, Nurse Practitioner as directed. Dr. Lizeth MD I have performed a history and physical examination and medical decision making of this patient, discussed the same with the dictator, and agree with the dictators assessment and plan as written, documented as a scribe. Based on total visit time, I have performed more than 50% of this visit. Patient Condition at Discharge: Fair Plan - Discharge Summary Discharge Rx Participant: No New Discharge Prescriptions: New Losartan [Cozaar] 50 mg PO HS tab Divalproex [Depakote] 750 mg PO HS tab Divalproex ER [Depakote ER] 500 mg PO DAILY tab Continue traZODone HCL [Desyrel] 50 mg PO HS Sertraline [Zoloft] 100 mg PO QAM Atorvastatin Calcium [Lipitor] 10 mg PO HS Docusate [Colace] 100 mg PO BID #20 capsule Omeprazole [PriLOSEC] 20 mg PO DAILY metFORMIN HCL ER [Glucophage XR] 500 mg PO DAILY Meloxicam [Mobic] 7.5 mg PO DAILY oxyCODONE-APAP 5-325MG [Percocet 5-325 mg] 1 tab PO Q4HR PRN #6 tab PRN Reason: Pain Magnesium Hydroxide [Milk of Magnesia] 2,400 mg PO DAILY PRN PRN Reason: Constipation Oxybutynin Chloride [Ditropan XL] 5 mg PO DAILY Aspirin 81 mg PO DAILY Sennosides [Senokot] 8.6 mg PO BID PRN PRN Reason: Constipation Discontinued Losartan Potassium [Cozaar] 100 mg PO HS Divalproex [Depakote] 500 mg PO BID Discharge Medication List Sertraline [Zoloft] 100 mg PO QAM 06/01/14 [History] traZODone HCL [Desyrel] 50 mg PO HS 06/01/14 [History] Atorvastatin Calcium [Lipitor] 10 mg PO HS 01/21/19 [History] Docusate [Colace] 100 mg PO BID #20 capsule 08/09/20 [Rx] Aspirin 81 mg PO DAILY 07/11/22 [History] Magnesium Hydroxide [Milk of Magnesia] 2,400 mg PO DAILY PRN 07/11/22 [History] Meloxicam [Mobic] 7.5 mg PO DAILY 07/11/22 [History] Omeprazole [PriLOSEC] 20 mg PO DAILY 07/11/22 [History] Oxybutynin Chloride [Ditropan XL] 5 mg PO DAILY 07/11/22 [History] Sennosides [Senokot] 8.6 mg PO BID PRN 07/11/22 [History] metFORMIN HCL ER [Glucophage XR] 500 mg PO DAILY 07/11/22 [History] Divalproex ER [Depakote ER] 500 mg PO DAILY tab 07/15/22 [Rx] Divalproex [Depakote] 750 mg PO HS tab 07/15/22 [Rx] Losartan [Cozaar] 50 mg PO HS tab 07/15/22 [Rx] oxyCODONE-APAP 5-325MG [Percocet 5-325 mg] 1 tab PO Q4HR PRN #6 tab 07/15/22 [Rx] Follow up Appointment(s)/Referral(s): Luma Mcconnell DO [Primary Care Provider] - 1-2 days Sol Blanca MD [Medical Doctor] - 1 Week Gely Huynh MD [REFERRING] - 1 Week Activity/Diet/Wound Care/Special Instructions: Follow up with Neurology on Discharge Continue depakote and seizure precautions Per [place] DMV, patient to avoid driving for 6 months until seizure free, avoid heights, swim unassisted or use heavy machinery. Repeat BMP in 2 days Discharge Disposition: TRANSFER TO SNF/ECF
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
== END 2022-07-16 17:03 | DRG 101 ==
LOC: EC 15:11 → 3SCARD 18:45
PROVIDERS: ADMIT Hospitalist; ATTEND Hospitalist
DX: R56.9 Unspecified convulsions (principal); F33.3 Major depressive disorder, recurrent, severe with psychotic symptoms; E11.9 Type 2 diabetes mellitus without complications; G31.9 Degenerative disease of nervous system, unspecified; E78.5 Hyperlipidemia, unspecified; K76.9 Liver disease, unspecified; K21.9 Gastro-esophageal reflux disease without esophagitis; I10 Essential (primary) hypertension; F41.9 Anxiety disorder, unspecified; M54.30 Sciatica, unspecified side; M48.02 Spinal stenosis, cervical region; M25.78 Osteophyte, vertebrae; M19.90 Unspecified osteoarthritis, unspecified site; I83.90 Asymptomatic varicose veins of unspecified lower extremity; K64.9 Unspecified hemorrhoids; Z79.82 Long term (current) use of aspirin; Z79.1 Long term (current) use of non-steroidal anti-inflammatories (NSAID); Z79.84 Long term (current) use of oral hypoglycemic drugs; Z79.899 Other long term (current) drug therapy; Z96.611 Presence of right artificial shoulder joint; Z96.653 Presence of artificial knee joint, bilateral; Z85.828 Personal history of other malignant neoplasm of skin; Z86.14 Personal history of Methicillin resistant Staphylococcus aureus infection; Z88.5 Allergy status to narcotic agent; Z88.8 Allergy status to other drugs, medicaments and biological substances
CPT/HCPCS: 36415; 70450; 70553; 72156; 80048; 80053; 80164; 82140; 82607; 82746; 83605; 83735; 84443; 85025; 93005; 95816; 99285

== ENCOUNTER → 2022-09-09 | Outpatient (CLI) | payer MEDICARE ==
[2022-09-09 14:37] LABS: ALT 17 U/L (8-44); AST 32 U/L (13-35)
[2022-09-09 15:01] LABS: Platelet Count 171 X 10*3/uL (140-440)
== END | disposition home or self-care (01) ==
LOC: LABWHC1 08:28
PROVIDERS: ATTEND Psychiatry & Neurology Neurology
DX: G40.009 Localization-related (focal) (partial) idiopathic epilepsy and epileptic syndromes with seizures of localized onset, not intractable, without status epilepticus (principal)
CPT/HCPCS: 36415; 80165; 84450; 84460; 85049

== ENCOUNTER 2022-09-21 21:10 | Inpatient (IN) | payer MEDICARE ==
--- NOTE | 2022-09-21 21:19 | ED ---
General Adult HPI - General Chief complaint: Seizure Stated complaint: Seizure Time Seen by Provider: 09/21/22 21:12 Source: EMS Mode of arrival: EMS Limitations: no limitations - History of Present Illness Initial comments: Dictation was produced using [employer] dictation software. please excuse any grammatical, word or spelling errors. Chief Complaint: 76-year-old female presents emergency department for cough History of Present Illness: 76-year-old female has past medical history of seizure disorder. She has been struggling with cough and flulike symptoms for the last 6 days. Patient has followed up with her primary care doctor. Today EMS was called because her symptoms were worse. She did appear to be lethargic per family. EMS states that while en route to the emergency department patient had a seizure. Patient does take seizure medications. She has been compliant. Denies any chest pain. She states that she normally has breakthrough seizures whenever she gets sick. Patient is not sure what seizure medication she takes she says around daughter knows the names and doses. States she takes it twice a day. The ROS documented in this emergency department record has been reviewed and confirmed by me. Those systems with pertinent positive or negative responses have been documented in the HPI. All other systems are other negative and/or noncontributory. PHYSICAL EXAM: General Impression: Alert and oriented x3, not in acute distress HEENT: Normocephalic atraumatic, extra-ocular movements intact, pupils equal and reactive to light bilaterally, mucous membranes moist. Cardiovascular: Heart regular rate and rhythm Chest: Able to complete full sentences, no retractions, no tachypnea Abdomen: abdomen soft, non-tender, non-distended, no organomegaly Musculoskeletal: Pulses present and equal in all extremities, no peripheral edema Motor: no focal deficits noted Neurological: CN II-XII grossly intact, no focal motor or sensory deficits noted Skin: Intact with no visualized rashes Psych: Normal affect and mood ED course: 76-year-old female presents emergency Department with respiratory infectious symptoms ongoing for 6 days. Patient had a breakthrough seizure. Chart review was performed. Medication lists show that patient on of this year was prescribed Depakote. Per neurology consultation and progress notes were reviewed. Showing the patient was diagnosed with new-onset seizure disorder back in June of this year. There does appear to be some documentation by neurologist that C that symptoms might be secondary to nonepileptic seizures. Vital signs upon arrival are within acceptable limits. Nursing notes and chart review was performed My EKG interpretation: Ventricular rate 89, likely sinus rhythm however likely due to artifact no complex,. Interval 111, QRS 79, QTC 410. No CA prolongation, no QTC prolongation, no ST or T-wave changes noted. Overall this EKG is nonspecific - Related Data Home Medications Medication Instructions Recorded Confirmed Sertraline [Zoloft] 100 mg PO DAILY 06/01/14 09/21/22 traZODone HCL [Desyrel] 50 mg PO HS 06/01/14 09/21/22 Atorvastatin Calcium [Lipitor] 10 mg PO HS 01/21/19 09/21/22 Aspirin 81 mg PO DAILY 07/11/22 09/21/22 Omeprazole [PriLOSEC] 20 mg PO DAILY 07/11/22 09/21/22 Oxybutynin Chloride [Ditropan XL] 5 mg PO BID 07/11/22 09/21/22 metFORMIN HCL ER [Glucophage XR] 500 mg PO DAILY 07/11/22 09/21/22 Divalproex [Depakote] 250 mg PO BID 09/21/22 09/21/22 Previous Rx's Medication Instructions Recorded Divalproex ER [Depakote ER] 500 mg PO DAILY tab 07/15/22 Losartan [Cozaar] 50 mg PO HS tab 07/15/22 Allergies Allergy/AdvReac Type Severity Reaction Status Date / Time LANDY Inhibitors Allergy Nausea & Verified 09/21/22 21:55 Vomiting. PASSED OUT amlodipine [From Norvasc] Allergy Nausea & Verified 09/21/22 21:55 Vomiting, PASSED OUT hydrocodone Allergy Unknown Verified 09/21/22 21:55 tramadol Allergy Nausea & Verified 09/21/22 21:55 Vomiting, PASSED OUT codeine AdvReac Nausea Verified 09/21/22 21:55 Review of Systems ROS Statement: Those systems with pertinent positive or pertinent negative responses have been documented in the HPI. ROS Other: All systems not noted in ROS Statement are negative. Past Medical History Past Medical History: Cancer, Diabetes Mellitus, GERD/Reflux, Hyperlipidemia, Hypertension, Liver Disease, Osteoarthritis (OA) Additional Past Medical History / Comment(s): Occ sciatica. Basal cell CA nose. hemorrhoids & some bleeding. ?seizure activity w/dizzyness/weakness few years ago - no seizure meds. Bladder leakage. Varicose veins.enlarged liver History of Any Multi-Drug Resistant Organisms: MRSA Date of last positivie culture/infection: 03/24/2014 MDRO Source:: Face Past Surgical History: Cholecystectomy, Heart Catheterization, Hysterectomy, Joint Replacement, Orthopedic Surgery, Tonsillectomy Additional Past Surgical History / Comment(s): BILATERAL CATARACTS. rashid shoulder rot cuff, ORIF upper rt arm, CARPAL TUNNEL RASHID, BONE REPLACEMENT IN RT WRIST W/ PLATE, CERVICAL NECK SX, bilat elbow tendon SX. BENIGN CYST REMOVED RASHID ARMS AND RT HAND, rashid knee replacements. Past Anesthesia/Blood Transfusion Reactions: Motion Sickness Past Psychological History: Anxiety Smoking Status: Never smoker Past Alcohol Use History: None Reported Past Drug Use History: None Reported - Past Family History Mother Family Medical History: Cancer Additional Family Medical History / Comment(s): BREAST General Exam Limitations: no limitations Course Vital Signs 09/21/22 09/21/22 09/21/22 21:12 21:53 22:54 Temperature 97.6 F Pulse Rate 88 86 85 Respiratory 14 16 18 Rate Blood Pressure 140/86 128/99 120/79 O2 Sat by Pulse 98 99 95 Oximetry Medical Decision Making - Medical Decision Making Was pt. sent in by a medical professional or institution (, PA, FIELD CONTRACTOR, urgent care, hospital, or halfway...) When possible be specific @ -No Did you speak to anyone other than the patient for history (EMS, parent, family, police, friend...)? What history was obtained from this source @ -Family at the bedside who arrived later Did you review nursing and triage notes (agree or disagree)? Why? @ -I reviewed and agree with nursing and triage notes Were old charts reviewed (outside hosp., previous admission, EMS record, old EKG, old radiological studies, urgent care reports/EKG's, halfway records)? Report findings @ -See above Differential Diagnosis (chest pain, altered mental status, abdominal pain women, abdominal pain men, vaginal bleeding, musculoskeletal, weakness, fever, dyspnea, syncope, headache, dizziness, GI bleed, back pain, seizure, CVA, palpatations, mental health)? @ -Differential Seizure: Recurrent seizure disorder, febrile seizure, alcohol withdrawal, stimulants, meningitis, encephalitis, intercranial hemorrhage, intracranial tumor, stroke, eclampsia, thyrotoxicosis, hypocalcemia, hyponatremia, hypernatremia, hypomagnesemia, psychogenic, this is not meant to be an all-inclusive list. EKG interpreted by me (3pts min.). @ -See above X-rays interpreted by me (1pt min.). @ -None done CT interpreted by me (1pt min.). @ -None done U/S interpreted by me (1pt. min.). @ -None done What testing was considered but not performed or refused? (CT, X-rays, U/S, labs)? Why? @ -None What meds were considered but not given or refused? Why? @ -None Did you discuss the management of the patient with other professionals (professionals i.e. , PA, FIELD CONTRACTOR, lab, RT, psych nurse, social service agency director, property caretaker, teacher, fisheries officer, case finishing machine adjuster)? Give summary @ -discussed with [facility] for admission Was smoking cessation discussed for >3mins.? @ -No Was critical care preformed (if so, how long)? @ -No Were there social determinants of health that impacted care today? How? (Homelessness, low income, unemployed, alcoholism, drug addiction, transportation, low edu. Level, literacy, decrease access to med. care, correction, rehab)? @ -No Was there de-escalation of care discussed even if they declined (Discuss DNR or withdrawal of care, Hospice)? DNR status @ -No What co-morbidities impacted this encounter? (DM, HTN, Smoking, COPD, CAD, C ancer, CVA, ARF, Chemo, Hep., AIDS, mental health diagnosis, sleep apnea, morbid obesity)? @ -History of seizure disorder which is possibly epileptogenic versus non- epileptogenic Was patient admitted / discharged? Hospital course, mention meds given and route, prescriptions, significant lab abnormalities, going to OR and other pertinent info. @ -76-year-old female presents emergency Department with suspected breakthrough seizures. She does have a seizure history. Likely patient having breakthrough seizures secondary to physical stress from viral URI. Laboratory evaluation obtained found to be within acceptable limits. Disposition options were discussed with patient and she would prefer to be admitted observation for medical monitoring and supportive care. Undiagnosed new problem with uncertain prognosis? @ -No Drug Therapy requiring intensive monitoring for toxicity (Heparin, Nitro, Insulin, Cardizem)? @ -No Were any procedures done? @ -No Diagnosis/symptom? Acute, or Chronic, or Acute on Chronic? Uncomplicated (without systemic symptoms) or Complicated (systemic symptoms)? @ -1. Breakthrough seizures, 2. Malaise Side effects of treatment? @ -No Exacerbation, Progression, or Severe Exacerbation? @ -No Poses a threat to life or bodily function? How? (Chest pain, USA, SD, pneumonia, PE, COPD, DKA, ARF, appy, cholecystitis, CVA, Diverticulitis, Homicidal, Suicidal, threat to staff... and all critical care pts) @ -yes - Lab Data Result diagrams: 09/21/22 21:19 09/21/22 21:19 Lab Results 09/21/22 09/21/22 09/21/22 Range/Units 21:19 21:19 21:19 WBC 6.2 (3.8-10.6) k/uL RBC 4.66 (3.80-5.40) m/uL Hgb 13.4 (11.4-16.0) gm/dL Hct 38.5 (34.0-46.0) % MCV 82.5 (80.0-100.0) fL MCH 28.6 (25.0-35.0) pg MCHC 34.7 (31.0-37.0) g/dL RDW 14.4 (11.5-15.5) % Plt Count 152 (150-450) k/uL MPV 8.0 Neutrophils % 68 % Lymphocytes % 19 % Monocytes % 9 % Eosinophils % 2 % Basophils % 0 % Neutrophils # 4.2 (1.3-7.7) k/uL Lymphocytes # 1.2 (1.0-4.8) k/uL Monocytes # 0.6 (0-1.0) k/uL Eosinophils # 0.2 (0-0.7) k/uL Basophils # 0.0 (0-0.2) k/uL Sodium 136 L (137-145) mmol/L Potassium 3.6 (3.5-5.1) mmol/L Chloride 99 (98-107) mmol/L Carbon Dioxide 29 (22-30) mmol/L Anion Gap 8 mmol/L BUN 18 H (7-17) mg/dL Creatinine 0.49 L (0.52-1.04) mg/dL Est GFR (CKD-EPI)AfAm >90 (>60 ml/min/1.73 sqM) Est GFR (CKD-EPI)NonAf >90 (>60 ml/min/1.73 sqM) Glucose 147 H (74-99) mg/dL Plasma Lactic Acid Stew 2.9 H* (0.7-2.0) mmol/L Calcium 8.3 L (8.4-10.2) mg/dL Magnesium 1.7 (1.6-2.3) mg/dL Total Bilirubin 0.6 (0.2-1.3) mg/dL AST 22 (14-36) U/L ALT 15 (4-34) U/L Alkaline Phosphatase 73 (38-126) U/L Total Protein 6.5 (6.3-8.2) g/dL Albumin 3.3 L (3.5-5.0) g/dL Valproic Acid 66.6 ug/mL Influenza Type A (PCR) (Not Detectd) Influenza Type B (PCR) (Not Detectd) RSV (PCR) (Not Detectd) SARS-CoV-2 (PCR) (Not Detectd) 09/21/22 Range/Units 21:19 WBC (3.8-10.6) k/uL RBC (3.80-5.40) m/uL Hgb (11.4-16.0) gm/dL Hct (34.0-46.0) % MCV (80.0-100.0) fL MCH (25.0-35.0) pg MCHC (31.0-37.0) g/dL RDW (11.5-15.5) % Plt Count (150-450) k/uL MPV Neutrophils % % Lymphocytes % % Monocytes % % Eosinophils % % Basophils % % Neutrophils # (1.3-7.7) k/uL Lymphocytes # (1.0-4.8) k/uL Monocytes # (0-1.0) k/uL Eosinophils # (0-0.7) k/uL Basophils # (0-0.2) k/uL Sodium (137-145) mmol/L Potassium (3.5-5.1) mmol/L Chloride (98-107) mmol/L Carbon Dioxide (22-30) mmol/L Anion Gap mmol/L BUN (7-17) mg/dL Creatinine (0.52-1.04) mg/dL Est GFR (CKD-EPI)AfAm (>60 ml/min/1.73 sqM) Est GFR (CKD-EPI)NonAf (>60 ml/min/1.73 sqM) Glucose (74-99) mg/dL Plasma Lactic Acid Stew (0.7-2.0) mmol/L Calcium (8.4-10.2) mg/dL Magnesium (1.6-2.3) mg/dL Total Bilirubin (0.2-1.3) mg/dL AST (14-36) U/L ALT (4-34) U/L Alkaline Phosphatase (38-126) U/L Total Protein (6.3-8.2) g/dL Albumin (3.5-5.0) g/dL Valproic Acid ug/mL Influenza Type A (PCR) Not Detected (Not Detectd) Influenza Type B (PCR) Not Detected (Not Detectd) RSV (PCR) Not Detected (Not Detectd) SARS-CoV-2 (PCR) Not Detected (Not Detectd) Disposition Clinical Impression: Breakthrough seizure Disposition: ADMITTED IP TO THIS [facility] Instructions (If sedation given, give patient instructions): Seizure/Epilepsy Discharge Instructions & Follow-Up Referrals: Luma Mcconnell DO [Primary Care Provider] - 1-2 days Decision Time: 23:44
--- NOTE | 2022-09-21 21:43 | XR ---
EXAMINATION TYPE: XR chest 2V DATE OF EXAM: 09/21/2022 COMPARISON: 01/21/2019 TECHNIQUE: PA and lateral views submitted. HISTORY: Seizure FINDINGS: The lungs are clear and there is no pneumothorax, pleural effusion, or focal pneumonia. Heart size normal and no overt failure. Osseous structures demonstrate hypertrophic and degenerative changes of the spine. Postsurgical change right shoulder. Postsurgical change of vertebral column. IMPRESSION: 1. No acute process.
[2022-09-21 21:53] LABS: Basophils % (A) 0 %; Chloride 99 mmol/L (98-107); Eosinophils # (A) 0.2 k/uL (0-0.7); Eosinophils % (A) 2 %; HCT 38.5 % (34.0-46.0); HGB 13.4 gm/dL (11.4-16.0); Lymphocytes # (A) 1.2 k/uL (1.0-4.8); Lymphocytes % (A) 19 %; MCH 28.6 pg (25.0-35.0); MCHC 34.7 g/dL (31.0-37.0); MCV 82.5 fL (80.0-100.0); Monocytes # (A) 0.6 k/uL (0-1.0); Monocytes % (A) 9 %; Neutrophils # (A) 4.2 k/uL (1.3-7.7); Neutrophils % (A) 68 %; Platelet Count 152 k/uL (150-450); RBC 4.66 m/uL (3.80-5.40); RDW 14.4 % (11.5-15.5); WBC 6.2 k/uL (3.8-10.6)
[2022-09-21 21:54] LABS: ALT 15 U/L (4-34); AST 22 U/L (14-36); African American GFR (CKD) >90 (>60 ml/min/1.73 sqM); Albumin 3.3 g/dL (3.5-5.0); Alkaline Phosphatase 73 U/L (38-126); Anion Gap 8 mmol/L; Blood Urea Nitrogen 18 mg/dL (7-17); Calcium 8.3 mg/dL (8.4-10.2); Carbon Dioxide 29 mmol/L (22-30); Glucose 147 mg/dL (74-99); Magnesium 1.7 mg/dL (1.6-2.3); Non-African American GFR(CKD) >90 (>60 ml/min/1.73 sqM); Potassium 3.6 mmol/L (3.5-5.1); Sodium 136 mmol/L (137-145); Total Bilirubin 0.6 mg/dL (0.2-1.3); Total Protein 6.5 g/dL (6.3-8.2)
[2022-09-21 21:59] LABS: Valproic Acid (Depakene) 66.6 ug/mL
[2022-09-21] MEDS ORDERED: NALOXONE 0.4 MG/ML 1 ML VIAL IV PRN (23:37)
[2022-09-22] MEDS: SODIUM CHLORIDE 0.9% 1,000 ML IV SCH (02:07)
[2022-09-22 06:28] LABS: Glucose,Whole Blood 140 mg/dL (70-110)
[2022-09-22] MEDS ORDERED: MAGNESIUM SULFATE-D5W PMX 1 GM in DEXTROSE/WATER 1 100ML.BAG IVPB ONE (06:50)
[2022-09-22] MEDS ORDERED: Magnesium Replacement Protocol 1 EACH MISC MISCELLANE PRN (06:50)
[2022-09-22] MEDS: metFORMIN 500 MG TAB PO SCH ×2 (10:13→20:23)
[2022-09-22] MEDS: DIVALPROEX ER 500 MG TAB.ER.24H PO SCH (10:13)
[2022-09-22] MEDS: SERTRALINE 50 MG TAB PO SCH (10:13)
[2022-09-22] MEDS: ASPIRIN 81 MG PO SCH (10:14)
[2022-09-22] MEDS: PANTOPRAZOLE 40 MG TABLET PO SCH (10:14)
[2022-09-22] MEDS: DIVALPROEX 250 MG TABLET.DR PO SCH ×2 (10:14→20:24)
[2022-09-22] MEDS: OXYBUTYNIN XL 5 MG TAB.ER.24 PO SCH ×2 (10:14→20:23)
[2022-09-22] MEDS ORDERED: DEXTROSE 50% SYRINGE 50 ML IVP PRN ×2 (12:02)
[2022-09-22 12:11] LABS: Glucose,Whole Blood 119 mg/dL (70-110)
[2022-09-22] MEDS: INSULIN ASPART (NovoLOG) 100 UNIT/ML VIAL SQ SCH ×3 (12:44→20:24)
[2022-09-22 13:00] LABS: Appearance,Urine Clear (Clear); Bacteria,Urine Rare /hpf; Bilirubin,Urine Negative (Negative); Blood,Urine Negative (Negative); Color,Urine Yellow; Glucose,Urine (UA) Negative (Negative); Ketones,Urine Negative (Negative); Leukocyte Esterase,Urine Small (Negative); Nitrite,Urine Negative (Negative); PH, Urine 7.5 (5.0-8.0); Protein,Urine Negative (Negative); RBC,Urine 1 /hpf (0-5); Specific Gravity,Urine 1.017 (1.001-1.035); Squamous Epithelial Cell,Urine <1 /hpf (0-4); Urobilinogen,Urine <2.0 mg/dL (<2.0); WBC,Urine 3 /hpf (0-5)
[2022-09-22 16:48] LABS: Glucose,Whole Blood 84 mg/dL (70-110)
[2022-09-22] MEDS ORDERED: ALBUTEROL NEBULIZED 2.5 MG/3 ML INHALATION PRN (18:53)
[2022-09-22] MEDS ORDERED: IPRATROPIUM 0.5 MG/2.5 ML NEBU INHALATION PRN (18:59)
[2022-09-22] MEDS ORDERED: ACETYLCYSTEINE 800 MG/4 ML VIAL INHALATION SCH (20:00)
[2022-09-22] MEDS: IPRATROPIUM 0.5 MG/2.5 ML NEBU INHALATION SCH (20:03)
[2022-09-22] MEDS: ALBUTEROL NEBULIZED 2.5 MG/3 ML INHALATION SCH (20:03)
[2022-09-22 20:18] LABS: Glucose,Whole Blood 126 mg/dL (70-110)
[2022-09-22] MEDS: ATORVASTATIN 10 MG TAB PO SCH (20:23)
[2022-09-22] MEDS: traZODone HCL 50 MG TAB PO SCH (20:23)
[2022-09-22] MEDS: guaiFENesin SYRUP 100MG/5ML 200 MG/10 ML CUP PO PRN (20:23)
[2022-09-22] MEDS: LOSARTAN 50 MG TAB PO SCH (20:24)
--- NOTE | 2022-09-22 21:24 | HP ---
HISTORY AND PHYSICAL CHIEF COMPLAINT: Seizure and cough, and change in mental status. HISTORY OF PRESENT ILLNESS: A 76-year-old woman with past medical history of multiple medical problems including seizure disorder, being followed by Dr. Mcconnell in the outpatient, not feeling well for the past 3 days. The patient had incessant cough and the patient was found to be lethargic and confused with the family. Apparently, the patient had a seizure disorder with the EMS during transportation, admitted for further evaluation and treatment. There is no history of any fever, rigors, or chills at this time. Valproic acid is 66.6, which is therapeutic and Neurology evaluation progressed. Lactic acid is elevated at 2.9. There is no history of any fever, rigors, or chills. PAST MEDICAL HISTORY: Reviewed include seizure disorder. The rest of the history and rest of the chart is also reviewed. HOME MEDICATIONS: Reviewed include trazodone. Dose and rest of medication noted. ALLERGIES: Reviewed include LANDY inhibitors. Rest of the allergies are noted. FAMILY HISTORY: History of breast cancer. SOCIAL HISTORY: No history of smoking. REVIEW OF SYSTEMS: A 14-point review is negative except as mentioned earlier. PHYSICAL EXAMINATION: VITAL SIGNS: Pulse 64, blood pressure 120/70, respirations 15. HEENT: Conjunctivae normal. NECK: No jugular venous distention. CARDIOVASCULAR: S1, S2 muffled. RESPIRATIONS: A few scattered rhonchi and crackles. ABDOMEN: Soft, nontender. LEGS: No edema. NERVOUS SYSTEM: No focal deficits. SKIN: No ulcer, rash, bleeding. JOINTS: No active deforming arthropathy. LABORATORY DATA: Reviewed. Chest x-ray reviewed personally. ASSESSMENT: 1. Acute seizure disorder, possibly breakthrough seizures. 2. Rule out pseudoseizures. 3. Possible bronchitis with failure of outpatient treatment. 4. Diabetes mellitus, type 2. 5. Hyperlipidemia. 6. Hypertension. 7. History of chronic liver disease. 8. Multiple medical issues. RECOMMENDATIONS AND DISCUSSION: This is a 76-year-old woman who presented with multiple complex medical issues. We will monitor the patient closely. Recommend to continue current medications, continue symptomatic treatment. I would recommend bronchodilators. Also recommend COVID-19 PCR, neurology consultation, neurovascular workup, CT scan of the brain. See orders for further details. Prognosis extremely guarded because of multiple complex medical issues. Further recommendations to follow. This patient requires more than 2 nights hospital stay to observe diagnosis and elucidate the above mentioned multiple complex medical issues. Because of the breakthrough seizures are concerning, in that case the patient will require a thorough review of the antiepileptic medications and possibly some change in medications to ensure the patient's safety. FLY / SATINDER: [id number] /
--- NOTE | 2022-09-22 21:25 | P.CNNES ---
History of Present Illness Consult date: 09/22/22 Requesting physician: Benoit Harvey Reason for Consult: Seizure History of Present Illness: Patient is a 76-year-old female with history of seizure disorder came to the hospital by ambulance yesterday at 9:10 PM for breakthrough seizure. Patient states that she developed new onset seizure right after her right shoulder surgery in June as mentioned below in detail. Patient states that yesterday she started feeling sick, with cough, runny nose and fever. The symptoms got worse and felt will pass out. Patient states that she had a seizure in the ambulance and she does not remember anything after that until she woke up this morning in this room. As per EMS flowsheet, and they arrived, found patient complaining of flulike symptoms. Patient was alert and oriented 4 and able to answer questions appropriately in a timely manner. Patient started to feel sick on Friday and has a fever initially dealt with nausea and a dry cough. Patient went to see the doctor on Friday and had a chest x-ray that was clear and was given a medication to take at home. Patient was not any better because patient was lethargic. EKG showed normal sinus rhythm. Patient was placed in the ambulance. About 10 minutes before arriving at the hospital, patient had a full tonic clonic seizure. Patient does have history of seizures. The seizure lasted approximately 30 seconds. Patient was given 10 mg of Versed in her right thigh. Patient was "out of it". Patient is still alert and oriented 4 and is able to answer questions appropriately and in a timely manner. Blood test shows normal CBC, sodium 136 potassium 3.6, BUN 18 creatinine 0.49. Lactate 2.9. Hepatic panel normal, Depakote 66.6 which is therapeutic, influenza, RSV and coronal virus PCR negative. UA negative EKG showed junctional rhythm. Chest x-ray revealed no acute process. Home medications include trazodone 50 mg, sertraline 100 mg daily, Lipitor 10 mg, omeprazole 20 mg, metformin, oxybutynin, aspirin 81 mg, losartan 50 mg, Depakote 500 mg daily, and also Depakote 250 mg twice a day. Patient had a new onset seizure since she underwent right shoulder reconstructive surgery on 06/26/2022. Patient had multiple seizures at that time. Patient was placed on Depakote at 500 mg twice a day dose. She went to the group home in the [facility]. Patient returned to the hospital on 07/13/2022 for recurrent seizures, and her dose of Depakote was increased to 500 mg in the morning and 750 mg at bedtime. Patient had an EEG on 07/12/2022, which was mildly abnormal EEG due to background disorganization and slightly excessive fast frequency beta activity. This may be suggestive of mild encephalopathy or medication effect. No epileptiform activity was seen. Patient was discharged to the group home and was released on 08/31/2022 to her granddaughter's house. She stayed there until last 5 days, when she moved with her daughter. Patient has been seeing Dr. Mayo in the clinic. Review of Systems Constitutional: Reports fever, Reports weight loss, Denies chills Eyes: denies blurred vision, denies pain Ears: bilateral: decreased hearing, deny: earache Ears, nose, mouth and throat: Reports headache, Denies sore throat Cardiovascular: Denies chest pain, Denies shortness of breath Respiratory: Reports cough with sputum, Denies wheezing Gastrointestinal: Denies abdominal pain, Denies constipation, Denies diarrhea, Denies nausea, Denies vomiting Genitourinary: Denies dysuria, Denies hematuria Musculoskeletal: Denies myalgias Integumentary: Denies pruritus, Denies rash Neurological: Reports as per HPI Psychiatric: Reports depression, Denies anxiety Endocrine: Reports fatigue, Reports weight change Hematologic/Lymphatic: Reports easy bruising, Denies easy bleeding Past Medical History Past Medical History: Cancer, Diabetes Mellitus, GERD/Reflux, Hyperlipidemia, Hypertension, Liver Disease, Osteoarthritis (OA) Additional Past Medical History / Comment(s): Occ sciatica. Basal cell CA nose. hemorrhoids & some bleeding. ?seizure activity w/dizzyness/weakness few years ago - no seizure meds. Bladder leakage. Varicose veins.enlarged liver, STILLBORN IN THE 70'S History of Any Multi-Drug Resistant Organisms: MRSA Date of last positivie culture/infection: 03/24/2014 MDRO Source:: Face Past Surgical History: Cholecystectomy, Heart Catheterization, Hysterectomy, Joint Replacement, Orthopedic Surgery, Tonsillectomy Additional Past Surgical History / Comment(s): BILATERAL CATARACTS. rashid shoulder rot cuff, ORIF upper rt arm, CARPAL TUNNEL RASHID, BONE REPLACEMENT IN RT WRIST W/ PLATE, CERVICAL NECK SX, bilat elbow tendon SX. BENIGN CYST REMOVED RASHID ARMS AND RT HAND, rashid knee replacements. Past Anesthesia/Blood Transfusion Reactions: Motion Sickness Past Psychological History: Anxiety Additional Psychological History / Comment(s): "a lot of stress" Smoking Status: Never smoker Past Alcohol Use History: None Reported Past Drug Use History: None Reported - Past Family History Mother Family Medical History: Cancer Additional Family Medical History / Comment(s): BREAST Medications and Allergies Home Medications Medication Instructions Recorded Confirmed Type Sertraline [Zoloft] 100 mg PO DAILY 06/01/14 09/21/22 History traZODone HCL [Desyrel] 50 mg PO HS 06/01/14 09/21/22 History Atorvastatin Calcium [Lipitor] 10 mg PO HS 01/21/19 09/21/22 History Aspirin 81 mg PO DAILY 07/11/22 09/21/22 History Omeprazole [PriLOSEC] 20 mg PO DAILY 07/11/22 09/21/22 History Oxybutynin Chloride [Ditropan XL] 5 mg PO BID 07/11/22 09/21/22 History metFORMIN HCL ER [Glucophage XR] 500 mg PO DAILY 07/11/22 09/21/22 History Divalproex ER [Depakote ER] 500 mg PO DAILY tab 07/15/22 09/21/22 Rx Losartan [Cozaar] 50 mg PO HS tab 07/15/22 09/21/22 Rx Divalproex [Depakote] 250 mg PO BID 09/21/22 09/21/22 History Allergies Allergy/AdvReac Type Severity Reaction Status Date / Time LANDY Inhibitors Allergy Nausea & Verified 09/21/22 21:55 Vomiting. PASSED OUT amlodipine [From Norvasc] Allergy Nausea & Verified 09/21/22 21:55 Vomiting, PASSED OUT hydrocodone Allergy Unknown Verified 09/21/22 21:55 tramadol Allergy Nausea & Verified 09/21/22 21:55 Vomiting, PASSED OUT codeine AdvReac Nausea Verified 09/21/22 21:55 Physical Examination - Vital Signs Vital Signs: Vital Signs Temp Pulse Pulse Resp BP BP Pulse Ox 09/22/22 14:02 98.3 F 79 18 127/75 94 L 09/22/22 08:32 69 18 09/22/22 07:21 98.2 F 69 18 147/84 95 09/22/22 00:58 97.8 F 64 15 121/75 95 09/22/22 00:23 75 16 105/72 95 09/21/22 23:53 98.5 F 66 16 121/75 96 09/21/22 22:54 85 18 120/79 95 09/21/22 21:53 86 16 128/99 99 09/21/22 21:12 97.6 F 88 14 140/86 98 Intake and Output 09/22/22 09/22/22 09/22/22 06:59 14:59 22:59 Output Total 350 Balance -350 Output: Urine 350 Other: Voiding Method Toilet # Voids 0 2 # Bowel Movements 1 1 Weight 51.256 kg Patient is an elderly female, in no acute distress. Patient is alert awake oriented to time place and person. She knows that she is in [facility] in [facility], states it is 09/19/2022 and name of the current president. Speech and language functions are normal. Patient can name and repeat very well. No aphasia or dysarthria. Attention, concentration and fund of knowledge is adequate. On cranial nerve examination, pupils are equal, round and reacting to light, visual olvera are full on confrontation, with no neglect on double simultaneous stimulation. Extraocular muscles are intact with no nystagmus. Face is symmetric, tongue protrudes to the midline. No evidence of oral trauma or tongue bite kallie. Palatal elevation and sensation normal, hearing and shoulder shrug normal, facial sensation normal. On muscle strength testing, patient has very mild right pronation, no drift. The strength is normal in arms and legs distally and proximally. Right shoulder not checked because of pain and recent surgery. Deep tendon reflexes are symmetric 1-1+ in the upper limbs at biceps and brachioradialis, knees 2, ankles 1. Plantars are downgoing bilaterally. Sensory to touch is equal with no neglect on double simultaneous stimulation. Cerebellar function showed no ataxia for [id number] testing on the left. No ataxia for [id number] testing on either side. Tone and bulk of muscles normal. Gait deferred.. On general examination, there is no carotid bruit or murmur, S1-S2 audible. Chest is clear on consultation. Abdomen is soft nontender. No organomegaly, bowel sounds present. Peripheral pulses are present. No edema. Results - Laboratory Findings CBC and BMP: 09/21/22 21:19 09/21/22 21:19 Abnormal Lab Findings: Abnormal Labs 09/21/22 09/21/22 09/22/22 21:19 21:19 06:26 Sodium 136 L BUN 18 H Creatinine 0.49 L Glucose 147 H POC Glucose (mg/dL) 140 H Plasma Lactic Acid Stew 2.9 H* Calcium 8.3 L Albumin 3.3 L Ur Leukocyte Esterase Urine Bacteria 09/22/22 09/22/22 11:48 12:30 Sodium BUN Creatinine Glucose POC Glucose (mg/dL) 119 H Plasma Lactic Acid Stew Calcium Albumin Ur Leukocyte Esterase Small H Urine Bacteria Rare H Assessment and Plan Assessment: * New onset seizure disorder since right shoulder surgery on 06/26/2022. Patient came to the hospital with breakthrough seizures. Patient has history of transient seizures after her eye surgery 3-4 years ago, not prescribed seizure medication at that time. She was seizure free until she had seizure recurrence after her right shoulder surgery. * Diabetes * Hyperlipidemia * Hypertension * Liver disease * Osteoarthritis Plan: * Patient currently on Depakote 250 mg twice a day and 500 mg at bedtime. Her levels are therapeutic. * We will check a prolonged EEG to evaluate for interictal epileptiform activity. * Based upon the results of EEG, will be decided between further optimizing dose of Depakote versus adding another antiepileptic medication. * Dr. Imtiaz Mahajan Will resume neurology service in the morning. * Thank you for the consult.
[2022-09-23] MEDS: SODIUM CHLORIDE 0.9% 1,000 ML IV SCH (00:33)
[2022-09-23] MEDS: guaiFENesin SYRUP 100MG/5ML 200 MG/10 ML CUP PO PRN ×4 (01:28→20:02)
[2022-09-23] MEDS: INSULIN ASPART (NovoLOG) 100 UNIT/ML VIAL SQ SCH ×4 (06:23→20:40)
[2022-09-23 06:29] LABS: Glucose,Whole Blood 85 mg/dL (70-110)
[2022-09-23] MEDS: IPRATROPIUM 0.5 MG/2.5 ML NEBU INHALATION SCH ×2 (07:41→15:10)
[2022-09-23] MEDS: ALBUTEROL NEBULIZED 2.5 MG/3 ML INHALATION SCH ×2 (07:41→15:10)
[2022-09-23] MEDS: OXYBUTYNIN XL 5 MG TAB.ER.24 PO SCH ×2 (08:23→20:02)
[2022-09-23] MEDS: SERTRALINE 50 MG TAB PO SCH (08:23)
[2022-09-23] MEDS: metFORMIN 500 MG TAB PO SCH ×2 (08:23→20:03)
[2022-09-23] MEDS: DIVALPROEX ER 500 MG TAB.ER.24H PO SCH (08:23)
[2022-09-23] MEDS: ASPIRIN 81 MG PO SCH (08:24)
[2022-09-23] MEDS: PANTOPRAZOLE 40 MG TABLET PO SCH (08:24)
[2022-09-23] MEDS: DIVALPROEX 250 MG TABLET.DR PO SCH ×3 (08:24→20:04)
--- NOTE | 2022-09-23 08:58 | XR ---
EXAMINATION TYPE: XR chest 2V DATE OF EXAM: 09/23/2022 COMPARISON: 09/21/2022 HISTORY: Shortness of breath TECHNIQUE: Frontal and lateral views of the chest are obtained. FINDINGS: Scattered senescent parenchymal changes noted. Hyperinflation compatible with COPD. No evidence for infiltrate. No evidence for atelectasis. Heart size is stable. Mediastinal structures are stable and grossly unremarkable. No evidence for hilar prominence. Degenerative changes dorsal spine. IMPRESSION: 1. No evidence for acute pulmonary disease.
--- NOTE | 2022-09-23 12:47 | P.PN ---
Subjective Progress Note Date: 09/23/22 The patient is seen at bedside for the first time during this admission. Please refer to Dr. Vinson's note for further details. It appears patient had break- thru seizure and is on Depakote 250mg 1 tab tid and 500mgER 1tab qhs that family notified nursing staff. Questionable if she had a seizure-like activity per nurse yesterday in which she had her eyes closed with some shaking then was responsive all the sudden and responding. Objective - Vital Signs Vital signs: Vital Signs Temp 97.8 F 09/23/22 07:05 Pulse 76 09/23/22 07:56 Resp 18 09/23/22 08:20 BP 120/77 09/23/22 07:05 Pulse Ox 96 09/23/22 07:05 FiO2 Intake & Output 09/22/22 09/23/22 09/23/22 18:59 06:59 18:59 Intake Total 960 Output Total 350 Balance -350 960 Intake: Intake, IV Titration 240 Amount Sodium Chloride 0.9% 1, 240 000 ml @ 20 mls/hr IV . Q24H [facility] Rx#:[id number] Oral 720 Output: Urine 350 Other: Voiding Method Toilet Toilet # Voids 2 2 # Bowel Movements 1 - Exam GENERAL: The patient is lying in bed and is not in acute distress. NEUROLOGICAL: Higher mental function: The patient is awake, alert, oriented to self, place. Stated correct year but could not tell me month. Patient is following simple commands. Somewhat slow responding to questions. No aphasia and no neglect. Cranial nerves: The pupils are round, equal and reactive to light. Visual olvera are full to confrontation throughout. Extraocular movement is intact no nystagmus is noted. Facial sensation is normal to touch throughout. The facial strength is normal throughout. Tongue is midline and moved [id number] without any difficulty. No dysarthria is noted. Shoulder shrug is normal bilaterally. Motor: The strength is hard to assess individual muscles because of cooperation but moving all extremities above gravity and does not appear focality. Normal tone and bulk. Cerebellum: Normal finger to nose bilaterally. Sensation: Sensation is normal to touch throughout. SOME OF THE WORK-UP DURING THIS HOSPITAL VISIT CONSISTED OF: Valproic acid level is 66.6 (nl is 50-120) - Labs CBC & Chem 7: 09/21/22 21:19 09/21/22 21:19 Labs: Abnormal Lab Results - Last 24 Hours (Table) 09/22/22 09/22/22 09/22/22 Range/Units 12:14 12:30 19:48 POC Glucose (mg/dL) 126 H (70-110) mg/dL Procalcitonin 0.16 H (0.02-0.09) ng/mL Ur Leukocyte Esterase Small H (Negative) Urine Bacteria Rare H (None) /hpf Microbiology - Last 24 Hours (Table) 09/21/22 21:19 Blood Culture - Preliminary Blood No Growth after 24 hours Assessment and Plan Assessment: * New onset seizure disorder since right shoulder surgery on 06/26/2022. Patient came to the hospital with breakthrough seizures. Patient has history of transient seizures after her eye surgery 3-4 years ago, not prescribed seizure medication at that time. She was seizure free until she had seizure recurrence after her right shoulder surgery. * Diabetes * Hyperlipidemia * Hypertension * Liver disease * Osteoarthritis Plan: * Her family members notified nursing staff that she is on Depakote 250 mg three times a day and not twice a day and 500 mg at bedtime. Her levels are therapeutic. * Agree with Dr. Vinson, regarding checking prolonged EEG to evaluate for interictal epileptiform activity. Then based upon the results of EEG, will be decided between further optimizing dose of Depakote versus adding another antiepileptic medication. * Placed on seizure precaution and pads. * Will defer the rest of medical management to primary team. * Upon discharge, patient needs to follow-up with a neurologist within 1-2 weeks. The plan is discussed with patient and her nurse. Time with Patient: Less than 30
[2022-09-23 13:18] LABS: Glucose,Whole Blood 154 mg/dL (70-110)
[2022-09-23] MEDS: ACETAMINOPHEN TAB 325 MG TAB PO PRN ×2 (14:24→21:39)
[2022-09-23 14:29] VITALS: BMI 18.8
[2022-09-23 17:09] LABS: Glucose,Whole Blood 148 mg/dL (70-110)
[2022-09-23 19:39] VITALS: RESP 18
[2022-09-23] MEDS ORDERED: IPRATROPIUM 0.5 MG/2.5 ML NEBU INHALATION SCH (20:00)
[2022-09-23] MEDS: LOSARTAN 50 MG TAB PO SCH (20:02)
[2022-09-23] MEDS: ATORVASTATIN 10 MG TAB PO SCH (20:03)
[2022-09-23] MEDS: levETIRAcetam 500 MG TAB PO SCH (20:03)
[2022-09-23] MEDS: traZODone HCL 50 MG TAB PO SCH (20:03)
--- NOTE | 2022-09-23 20:15 | P.PN ---
Subjective Progress Note Date: 09/23/22 This is a 76-year-old female who was recently admitted not feeling well and generalized weakness over the last few days along with some cough and confusion. Patient's mentation has improved and patient also being evaluated by neurology with history of seizure order and possible breakthrough seizures. Per nursing staff patient was taking an increase in Depakote of 250 mg 3 times daily in addition to the 500 mg at night she was taking. This was verified by medical record although was reported as she was only taking 250 mg twice daily and 500 mg at night. Will adjust medications. Patient is currently afebrile with no reports of chest pain or palpitations. Patient reporting cough with some im provement. Review of systems: Constitutional: No reports of fatigue, fever, or chills Cardiovascular: No reports of chest pain or palpitations Respiratory: No reports of shortness of breath, reports cough GI: No reports of nausea, no reports of of vomiting, : No reports of dysuria or retention Neurovascular: reports of generalized weakness All medications have been reviewed PHYSICAL EXAMINATION: GENERAL: The patient is alert and oriented, thin built, elderly appearing HEENT: Pupils are round and equally reacting to light. EOMI. no scleral icterus. No conjunctival pallor. Normocephalic, atraumatic. No pharyngeal erythema. No thyromegaly. CARDIOVASCULAR: S1 and S2 muffled PULMONARY: diminished breath sounds bilaterally with some coarse rhonchi noted. ABDOMEN: soft. Nontender on exam. non-distended, normoactive bowel sounds. No palpable organomegaly. MUSCULOSKELETAL: No joint swelling or deformity. EXTREMITIES: No cyanosis, clubbing, or pedal edema. NEUROLOGICAL: Gross neurological examination did not reveal any focal deficits. Diffuse weakness SKIN: No rashes. Assessment: Acute seizure disorder, possibly breakthrough seizures Rule out pseudoseizures Possible bronchitis with failure of outpatient treatment Diabetes mellitus, type II Hyperlipidemia Hypertension History of chronic liver disease GI prophylaxis DVT prophylaxis Full code Plan: Recommend to continue with current medications and management with neurology following and undergoing workup awaiting EEG today. Nursing staff reported that daughter mentioned she was on 250 mg 3 times daily along with 500 mg of Depakote outpatient that was recently increased. Patient has had no seizure-like activ ity other than nursing staff reporting a mild twitching for a few seconds with no postictal state and was alert and oriented immediately after. Will follow up with neurology after EEG. Recommend repeat labs in the a.m. Prognosis is guarded The impression and plan of care has been dictated by Nathalie Patton, nurse practitioner as directed. Dr. Juan MD I have performed a history and examination and MDM of this patient, discussed the same with the dictator, and agree with the dictator's assessment and plan as written ,documented as a scribe. Based on total visit time, I have performed more than 50% of the visit. Any additional findings or plans will be noted. Objective - Vital Signs Vital signs: Vital Signs Temp 98.2 F 09/23/22 14:00 Pulse 86 09/23/22 15:28 Resp 16 09/23/22 14:00 BP 124/77 09/23/22 14:00 Pulse Ox 93 L 09/23/22 14:00 FiO2 Intake & Output 09/22/22 09/23/22 09/23/22 18:59 06:59 18:59 Intake Total 960 Output Total 350 Balance -350 960 Weight 51.256 kg Intake: Intake, IV Titration 240 Amount Sodium Chloride 0.9% 1, 240 000 ml @ 20 mls/hr IV . Q24H [facility] Rx#:[id number] Oral 720 Output: Urine 350 Other: Voiding Method Toilet Toilet # Voids 2 2 # Bowel Movements 1 - Labs CBC & Chem 7: 09/21/22 21:19 09/21/22 21:19 Labs: Abnormal Lab Results - Last 24 Hours (Table) 09/22/22 09/22/22 09/23/22 Range/Units 12:14 19:48 13:16 POC Glucose (mg/dL) 126 H 154 H (70-110) mg/dL Procalcitonin 0.16 H (0.02-0.09) ng/mL Microbiology - Last 24 Hours (Table) 09/21/22 21:19 Blood Culture - Preliminary Blood No Growth after 24 hours
[2022-09-23 20:18] LABS: Glucose,Whole Blood 125 mg/dL (70-110)
--- NOTE | 2022-09-23 21:21 | EEG ---
ELECTROENCEPHALOGRAM REPORT ELECTROENCEPHALOGRAM (EEG) REPORT: TECHNIQUE: This is a report from a prolonged 2.5-hour digital video EEG performed using the 10/20 international electrode placement system. HISTORY: Seizures. OTHER MEDICAL HISTORY: Includes diabetes, gastroesophageal reflux, hypertension, hyperlipidemia. CURRENT MEDICATIONS: Tylenol, Lipitor, aspirin, Depakote, Robitussin, NovoLog, Cozaar, Protonix, Ditropan, Zoloft, Desyrel. FINDINGS: Recording start time: 09/23/2022 at 09:17 a.m. Recording end time: 09/23/2022 at 11:48 a.m. EVENTS: During this 2.5-hour video EEG, no clinical or electrographic seizures were recorded. Please note that a mild excess of beta frequency activity was noted. It is not epileptiform in nature and may in part be due to medication effect. BACKGROUND: The background activity consisted of 8-9 hertz rhythmic waveforms symmetric through both posterior quadrants. ACTIVATION: Hyperventilation: Not performed. Photic stimulation: Symmetric driving seen. Sleep: Stages I and II sleep noted. ABNORMALITIES: None. IMPRESSION: Normal 2.5-hour video EEG. No clinical or electrographic seizures were recorded. No epileptiform activity was present. These findings were called to the consulting neurologist at 4:22 p.m. on 09/23/2022. MMODL / IJN: [id number] /
[2022-09-24] MEDS: SODIUM CHLORIDE 0.9% 1,000 ML IV SCH (00:02)
[2022-09-24] MEDS: guaiFENesin SYRUP 100MG/5ML 200 MG/10 ML CUP PO PRN ×2 (01:15→08:55)
[2022-09-24] MEDS: INSULIN ASPART (NovoLOG) 100 UNIT/ML VIAL SQ SCH ×2 (05:47→11:42)
[2022-09-24 05:48] LABS: Glucose,Whole Blood 79 mg/dL (70-110)
[2022-09-24] MEDS: levETIRAcetam 500 MG TAB PO SCH (07:38)
[2022-09-24] MEDS: DIVALPROEX ER 500 MG TAB.ER.24H PO SCH (07:38)
[2022-09-24] MEDS: ASPIRIN 81 MG PO SCH (07:38)
[2022-09-24] MEDS: SERTRALINE 50 MG TAB PO SCH (07:38)
[2022-09-24] MEDS: metFORMIN 500 MG TAB PO SCH (07:38)
[2022-09-24] MEDS: PANTOPRAZOLE 40 MG TABLET PO SCH (07:38)
[2022-09-24] MEDS: OXYBUTYNIN XL 5 MG TAB.ER.24 PO SCH (07:38)
[2022-09-24] MEDS: DIVALPROEX 250 MG TABLET.DR PO SCH (07:38)
[2022-09-24] MEDS ORDERED: IPRATROPIUM-ALBUTEROL 3 ML NEB INHALATION PRN (08:00)
[2022-09-24] MEDS ORDERED: IPRATROPIUM-ALBUTEROL 3 ML NEB INHALATION SCH (08:00)
[2022-09-24 08:21] VITALS: BP 137/75; TEMP 98.3
[2022-09-24 09:36] VITALS: PULSE 76
[2022-09-24 11:22] LABS: Glucose,Whole Blood 88 mg/dL (70-110)
--- NOTE | 2022-09-24 13:32 | P.PN ---
Subjective Progress Note Date: 09/24/22 The patient is seen at bedside and feels about the same. Denies any new neurological issues. Objective - Vital Signs Vital signs: Vital Signs Temp 98.3 F 09/24/22 08:00 Pulse 76 09/24/22 09:36 Resp 18 09/24/22 08:00 BP 137/75 09/24/22 08:00 Pulse Ox 97 09/24/22 08:00 FiO2 Intake & Output 09/23/22 09/24/22 09/24/22 18:59 06:59 18:59 Intake Total 480 59 Balance 480 59 Weight 51.256 kg Intake: Oral 480 59 Other: Voiding Method Toilet Diaper # Voids 3 3 1 - Exam GENERAL: The patient is lying in bed and is not in acute distress. NEUROLOGICAL: Higher mental function: The patient is awake, alert, oriented to self, place. S tated correct year but could not tell me month. Patient is following simple commands. Somewhat slow responding to questions. No aphasia and no neglect. Cranial nerves: The pupils are round, equal and reactive to light. Visual olvera are full to confrontation throughout. Extraocular movement is intact no nystagmus is noted. Facial sensation is normal to touch throughout. The facial strength is normal throughout. Tongue is midline and moved [id number] without any difficulty. No dysarthria is noted. Shoulder shrug is normal bilaterally. Motor: The strength is hard to assess individual muscles because of cooperation but moving all extremities above gravity and does not appear focality. Normal tone and bulk. Cerebellum: Normal finger to nose bilaterally. Sensation: Sensation is normal to touch throughout. SOME OF THE WORK-UP DURING THIS HOSPITAL VISIT CONSISTED OF: Valproic acid level is 66.6 (nl is 50-120) 2.5 hour video EEG: Was reported as normal. There is no clinical or electrographic seizures were recorded. No epileptiform activity are present. - Labs CBC & Chem 7: 09/21/22 21:19 09/21/22 21:19 Labs: Abnormal Lab Results - Last 24 Hours (Table) 09/23/22 09/23/22 Range/Units 17:07 20:16 POC Glucose (mg/dL) 148 H 125 H (70-110) mg/dL Microbiology - Last 24 Hours (Table) 09/21/22 21:19 Blood Culture - Preliminary Blood No Growth after 48 hours Assessment and Plan Assessment: * New onset seizure disorder since right shoulder surgery on 06/26/2022. Patient came to the hospital with breakthrough seizures. Patient has history of transient seizures after her eye surgery 3-4 years ago, not prescribed seizure medication at that time. She was seizure free until she had seizure r ecurrence after her right shoulder surgery. * Diabetes * Hyperlipidemia * Hypertension * Liver disease * Osteoarthritis Plan: * Her family members notified nursing staff that she is on Depakote 250 mg three times a day and not twice a day and 500 mg at bedtime. Her levels are therapeutic. Yesterday in addition, I added Keppra 500mg 1 tab bid because of break-thru seizures even though 2.5 hour EEG is reported as normal. I personally reviewed it and agreed no seizure but felt possible discharge over C4/P4. * I recommend epilepsy monitoring unit for at least few days and if not possible repeat prolonged ambulatory EEG (2.5 hours) as outpatient. * On seizure precaution and pads. * Will defer the rest of medical management to primary team. * Upon discharge, patient needs to follow-up with a neurologist within 1-2 weeks. The plan is discussed with patient and her primary team N.P. Time with Patient: Less than 30
[2022-09-24] MEDS: ACETAMINOPHEN TAB 325 MG TAB PO PRN (13:37)
== END 2022-09-24 13:51 | disposition home or self-care (01) | DRG 101 ==
LOC: EC 21:10 → 4SSUR 23:37 → OBSVTOIN 09-22 11:57
PROVIDERS: ADMIT Hospitalist; ATTEND Hospitalist
PROC: 4A10X4Z Monitoring of Central Nervous Electrical Activity, External Approach (ICD-10-PCS; principal; 2022-09-22)
DX: G40.909 Epilepsy, unspecified, not intractable, without status epilepticus (principal); E87.1 Hypo-osmolality and hyponatremia; I10 Essential (primary) hypertension; Z20.822 Contact with and (suspected) exposure to COVID-19; E11.9 Type 2 diabetes mellitus without complications; M19.90 Unspecified osteoarthritis, unspecified site; K76.9 Liver disease, unspecified; E78.5 Hyperlipidemia, unspecified; Z79.82 Long term (current) use of aspirin; Z79.899 Other long term (current) drug therapy; Z85.828 Personal history of other malignant neoplasm of skin; Z96.653 Presence of artificial knee joint, bilateral; Z79.84 Long term (current) use of oral hypoglycemic drugs; Z90.710 Acquired absence of both cervix and uterus; Z86.14 Personal history of Methicillin resistant Staphylococcus aureus infection; Z98.42 Cataract extraction status, left eye; Z98.41 Cataract extraction status, right eye; Z90.49 Acquired absence of other specified parts of digestive tract; Z88.5 Allergy status to narcotic agent; Z88.8 Allergy status to other drugs, medicaments and biological substances
CPT/HCPCS: 36415; 71046; 80053; 80164; 81001; 83036; 83605; 83735; 84145; 85025; 87040; 87636; 93005; 94640; 95713; 99285

== ENCOUNTER 2022-10-01 14:28 | Emergency (ER) | payer MEDICARE ==
[2022-10-01 14:34] VITALS: RESP 18; TEMP 97.6
--- NOTE | 2022-10-01 15:20 | ED ---
General Adult HPI - General Chief complaint: Seizure Stated complaint: Seizure Time Seen by Provider: 10/01/22 15:11 Source: EMS Mode of arrival: EMS Limitations: no limitations - History of Present Illness Initial comments: This patient is a 76-year-old woman who presents here to have evaluation after having had a seizure. The patient has history of seizures. She states she was at the office of her orthopedic doctor to be seen about some shoulder pain. She states she got up to go back in the room, noticed that she was feeling a seizure was coming on and sat down. She then remembers coming to with people telling her she did have a seizure. She denies having any pain or feeling like anything was injured. She states she does take Keppra and does not remember missing any doses. She does note that she has had some upper respiratory symptoms, including cough and that she hasn't been feeling great since she had left the hospital. The patient had been admitted September 22, and states she has not been feeling great since going home. She has continued to have cough and congestion. Family notes she has been sleeping in a chair most of the time. Family also notes that 2 days ago they had buried the patient's and she has been str essed. Onset/Timin -: hour(s) Radiation: extremity Improves with: none Worsens with: none Associated Symptoms: cough Treatments Prior to Arrival: none - Related Data Home Medications Medication Instructions Recorded Confirmed Sertraline [Zoloft] 100 mg PO DAILY 06/01/14 10/01/22 traZODone HCL [Desyrel] 50 mg PO HS 06/01/14 10/01/22 Atorvastatin Calcium [Lipitor] 10 mg PO HS 01/21/19 10/01/22 Aspirin 81 mg PO DAILY 07/11/22 10/01/22 Omeprazole [PriLOSEC] 20 mg PO DAILY 07/11/22 10/01/22 Oxybutynin Chloride [Ditropan XL] 5 mg PO BID 07/11/22 10/01/22 metFORMIN HCL ER [Glucophage XR] 500 mg PO DAILY 07/11/22 10/01/22 Albuterol Inhaler [Ventolin Hfa 2 puff INHALATION RT-Q6H PRN 10/01/22 10/01/22 Inhaler] guaiFENesin [Mucinex] 600 mg PO Q12H PRN 10/01/22 10/01/22 Previous Rx's Medication Instructions Recorded Divalproex ER [Depakote ER] 500 mg PO DAILY tab 07/15/22 Losartan [Cozaar] 50 mg PO HS tab 07/15/22 Acetaminophen Tab [Tylenol] 650 mg PO Q6HR PRN tab 09/24/22 Divalproex [Depakote] 250 mg PO TID tab 09/24/22 guaiFENesin SYRUP 100MG/5ML 200 mg PO Q6HR PRN #240 ml 09/24/22 [Robitussin] levETIRAcetam [Keppra] 500 mg PO Q12HR #60 tab 09/24/22 Azithromycin [Zithromax] 0 mg PO DIRECTED #6 tab 10/01/22 predniSONE [Deltasone] 20 mg PO BID #8 tab 10/01/22 Allergies Allergy/AdvReac Type Severity Reaction Status Date / Time LANDY Inhibitors Allergy Nausea & Verified 10/01/22 18:38 Vomiting. PASSED OUT amlodipine [From Norvasc] Allergy Nausea & Verified 10/01/22 18:38 Vomiting, PASSED OUT hydrocodone Allergy Unknown Verified 10/01/22 18:38 tramadol Allergy Nausea & Verified 10/01/22 18:38 Vomiting, PASSED OUT codeine AdvReac Nausea Verified 10/01/22 18:38 Review of Systems ROS Statement: Those systems with pertinent positive or pertinent negative responses have been documented in the HPI. ROS Other: All systems not noted in ROS Statement are negative. Constitutional: Reports: weakness. Denies: fever, chills Eyes: Denies: vision change Respiratory: Reports: cough, wheezes. Denies: dyspnea Cardiovascular: Denies: chest pain, palpitations, edema, syncope Gastrointestinal: Denies: abdominal pain, vomiting, diarrhea Genitourinary: Denies: dysuria, hematuria Musculoskeletal: Denies: back pain Skin: Denies: rash Neurological: Denies: headache Past Medical History Past Medical History: Cancer, Diabetes Mellitus, GERD/Reflux, Hyperlipidemia, Hypertension, Liver Disease, Osteoarthritis (OA), Seizure Disorder Additional Past Medical History / Comment(s): Occ sciatica. Basal cell CA nose. hemorrhoids & some bleeding. ?seizure activity w/dizzyness/weakness few years ago - no seizure meds. Bladder leakage. Varicose veins.enlarged liver, STILLBORN IN THE 70'S History of Any Multi-Drug Resistant Organisms: MRSA Date of last positivie culture/infection: 03/24/2014 MDRO Source:: Face Past Surgical History: Cholecystectomy, Heart Catheterization, Hysterectomy, Joint Replacement, Orthopedic Surgery, Tonsillectomy Additional Past Surgical History / Comment(s): BILATERAL CATARACTS. rashid shoulder rot cuff, ORIF upper rt arm, CARPAL TUNNEL RASHID, BONE REPLACEMENT IN RT WRIST W/ PLATE, CERVICAL NECK SX, bilat elbow tendon SX. BENIGN CYST REMOVED RASHID ARMS AND RT HAND, rashid knee replacements. Past Anesthesia/Blood Transfusion Reactions: Motion Sickness Past Psychological History: Anxiety Smoking Status: Never smoker Past Alcohol Use History: None Reported Past Drug Use History: None Reported - Past Family History Mother Family Medical History: Cancer Additional Family Medical History / Comment(s): BREAST General Exam Limitations: no limitations General appearance: alert, in no apparent distress Head exam: Present: atraumatic, normocephalic Eye exam: Present: normal appearance. Absent: scleral icterus, conjunctival injection Neck exam: Present: normal inspection Respiratory exam: Present: wheezes. Absent: respiratory distress, rales, rhonchi, stridor Cardiovascular Exam: Present: regular rate, normal rhythm, normal heart sounds. Absent: systolic murmur, diastolic murmur, rubs, gallop GI/Abdominal exam: Present: soft. Absent: distended, tenderness, guarding, rebound, rigid, mass Extremities exam: Present: normal inspection, normal capillary refill. Absent: pedal edema, calf tenderness Back exam: Present: normal inspection. Absent: CVA tenderness (R), CVA tenderness (L) Neurological exam: Present: alert, oriented X3. Absent: motor sensory deficit Skin exam: Present: warm, dry, intact, normal color. Absent: rash Course Vital Signs 10/01/22 10/01/22 10/01/22 14:30 16:45 16:55 Temperature 97.6 F Pulse Rate 77 66 68 Respiratory 18 Rate Blood Pressure 126/80 O2 Sat by Pulse 97 Oximetry 10/01/22 16:58 Temperature Pulse Rate 75 Respiratory 18 Rate Blood Pressure 131/72 O2 Sat by Pulse 93 L Oximetry EKG Findings - EKG Results: EKG: interpreted by ERMD, sinus rhythm (Rate 67 bpm), normal axis, normal QRS, normal ST/T Medical Decision Making - Medical Decision Making This patient is a 76-year-old woman with history of underlying seizures who pr esents after having had a breakthrough seizure while at her physician's office. The patient did have chest x-ray during the evaluation which I interpreted as being negative for: acute infiltrate, congestive heart failure, and pneumothorax. Was pt. sent in by a medical professional or institution (, PA, MOTTLER OPERATOR, urgent care, hospital, or skilled nursing...) When possible be specific @ -[No] Did you speak to anyone other than the patient for history (EMS, parent, family, police, friend...)? What history was obtained from this source @ -[Family is present Did you review nursing and triage notes (agree or disagree)? Why? @ -[I reviewed and agree with nursing and triage notes] Were old charts reviewed (outside hosp., previous admission, EMS record, old EKG, old radiological studies, urgent care reports/EKG's, skilled nursing records)? Report findings @ -[No old charts were reviewed] Differential Diagnosis (chest pain, altered mental status, abdominal pain women, abdominal pain men, vaginal bleeding, weakness, fever, dyspnea, syncope, headache, dizziness, GI bleed, back pain, seizure, CVA, palpatations, mental health, musculoskeletal)? @ -[Differential Chest Pain: Stable Angina, Unstable Angina, STEMI, NSTEMI Aortic Dissection, Pneumothorax, Musculoskeletal, Esophageal Spasm GERD, Cholecystitis, Pancreatitis, Zoster, this is not meant to be an all-inclusive list. Differential Seizure: Recurrent seizure disorder, febrile seizure, alcohol withdrawal, stimulants, meningitis, encephalitis, intercranial hemorrhage, intracranial tumor, stroke, eclampsia, thyrotoxicosis, hypocalcemia, hyponatremia, hypernatremia, hypomagnesemia, psychogenic, this is not meant to be an all-inclusive list. EKG interpreted by me (3pts min.). @ -[As above] X-rays interpreted by me (1pt min.). @ -[As above CT interpreted by me (1pt min.). @ -[None done] U/S interpreted by me (1pt. min.). @ -[None done] What testing was considered but not performed or refused? (CT, X-rays, U/S, labs)? Why? @ -[None] What meds were considered but not given or refused? Why? @ -[None] Did you discuss the management of the patient with other professionals (professionals i.e. , PA, MOTTLER OPERATOR, lab, RT, psych nurse, social insurance specialist, mental health associate, teacher, surveillance officer, caser shoe parts)? Give summary @ -[No] Was smoking cessation discussed for >3mins.? @ -[No] Was critical care preformed (if so, how long)? @ -[No] Were there social determinants of health that impacted care today? How? (Homelessness, low income, unemployed, alcoholism, drug addiction, transportation, low edu. Level, literacy, decrease access to med. care, residential, rehab)? @ -[No] Was there de-escalation of care discussed even if they declined (Discuss DNR or withdrawal of care, Hospice)? DNR status @ -[No] What co-morbidities impacted this encounter? (DM, HTN, Smoking, COPD, CAD, Cancer, CVA, ARF, Chemo, Hep., AIDS, mental health diagnosis, sleep apnea, morbid obesity)? @ -[None] Was patient admitted / discharged? Hospital course, mention meds given and r oute, prescriptions, significant lab abnormalities, going to OR and other pertinent info. @ -[The patient was offered admission but she would like to go home and does appear clinically stable to do so, we discussed appropriate follow-up and return parameters. Undiagnosed new problem with uncertain prognosis? @ -[No] Drug Therapy requiring intensive monitoring for toxicity (Heparin, Nitro, Insulin, Cardizem)? @ -[No] Were any procedures done? @ -[No] Diagnosis/symptom? @ -[Acute breakthrough seizure Acute bronchitis Acute, or Chronic, or Acute on Chronic? @ -[default] Uncomplicated (without systemic symptoms) or Complicated (systemic symptoms)? @ -[Uncomplicated Side effects of treatment? @ -[No] Exacerbation, Progression, or Severe Exacerbation? @ -[No] Poses a threat to life or bodily function? How? (Chest pain, [place], NH, pneumonia, PE, COPD, DKA, ARF, appy, cholecystitis, CVA, Diverticulitis, Homicidal, Suicidal, threat to staff... and all critical care pts) @ -[No] - Lab Data Result diagrams: 10/01/22 15:13 10/01/22 15:13 Lab Results 10/01/22 10/01/22 10/01/22 Range/Units 15:13 15:13 15:13 WBC 10.3 (3.8-10.6) k/uL RBC 4.12 (3.80-5.40) m/uL Hgb 11.5 (11.4-16.0) gm/dL Hct 34.7 (34.0-46.0) % MCV 84.2 (80.0-100.0) fL MCH 27.9 (25.0-35.0) pg MCHC 33.1 (31.0-37.0) g/dL RDW 14.0 (11.5-15.5) % Plt Count 299 (150-450) k/uL MPV 6.7 Neutrophils % 81 % Lymphocytes % 11 % Monocytes % 6 % Eosinophils % 1 % Basophils % 0 % Neutrophils # 8.3 H (1.3-7.7) k/uL Lymphocytes # 1.2 (1.0-4.8) k/uL Monocytes # 0.6 (0-1.0) k/uL Eosinophils # 0.1 (0-0.7) k/uL Basophils # 0.0 (0-0.2) k/uL Sodium 137 (137-145) mmol/L Potassium 4.1 (3.5-5.1) mmol/L Chloride 99 (98-107) mmol/L Carbon Dioxide 31 H (22-30) mmol/L Anion Gap 7 mmol/L BUN 20 H (7-17) mg/dL Creatinine 0.60 (0.52-1.04) mg/dL Est GFR (CKD-EPI)AfAm >90 (>60 ml/min/1.73 sqM) Est GFR (CKD-EPI)NonAf >90 (>60 ml/min/1.73 sqM) Glucose 120 H (74-99) mg/dL Calcium 8.4 (8.4-10.2) mg/dL Magnesium 1.9 (1.6-2.3) mg/dL Total Bilirubin 0.2 (0.2-1.3) mg/dL AST 28 (14-36) U/L ALT 19 (4-34) U/L Alkaline Phosphatase 63 (38-126) U/L Total Protein 6.2 L (6.3-8.2) g/dL Albumin 3.0 L (3.5-5.0) g/dL Urine Color Urine Appearance (Clear) Urine pH (5.0-8.0) Ur Specific [place] (1.001-1.035) Urine Protein (Negative) Urine Glucose (UA) (Negative) Urine Ketones (Negative) Urine Blood (Negative) Urine Nitrite (Negative) Urine Bilirubin (Negative) Urine Urobilinogen (<2.0) mg/dL Ur Leukocyte Esterase (Negative) Urine Opiates Screen (NotDetected) Ur Oxycodone Screen (NotDetected) Urine Methadone Screen (NotDetected) Ur Propoxyphene Screen (NotDetected) Ur Barbiturates Screen (NotDetected) Valproic Acid ug/mL U Tricyclic Antidepress (NotDetected) Levetiracetam 19.1 (3.0-60.0) ug/mL Ur Phencyclidine Scrn (NotDetected) Ur Amphetamines Screen (NotDetected) U Methamphetamines Scrn (NotDetected) U Benzodiazepines Scrn (NotDetected) Urine Cocaine Screen (NotDetected) U Marijuana (THC) Screen (NotDetected) Serum Alcohol <10 mg/dL Influenza Type A (PCR) (Not Detectd) Influenza Type B (PCR) (Not Detectd) RSV (PCR) (Not Detectd) SARS-CoV-2 (PCR) (Not Detectd) 10/01/22 10/01/22 10/01/22 Range/Units 18:51 18:51 19:44 WBC (3.8-10.6) k/uL RBC (3.80-5.40) m/uL Hgb (11.4-16.0) gm/dL Hct (34.0-46.0) % MCV (80.0-100.0) fL MCH (25.0-35.0) pg MCHC (31.0-37.0) g/dL RDW (11.5-15.5) % Plt Count (150-450) k/uL MPV Neutrophils % % Lymphocytes % % Monocytes % % Eosinophils % % Basophils % % Neutrophils # (1.3-7.7) k/uL Lymphocytes # (1.0-4.8) k/uL Monocytes # (0-1.0) k/uL Eosinophils # (0-0.7) k/uL Basophils # (0-0.2) k/uL Sodium (137-145) mmol/L Potassium (3.5-5.1) mmol/L Chloride (98-107) mmol/L Carbon Dioxide (22-30) mmol/L Anion Gap mmol/L BUN (7-17) mg/dL Creatinine (0.52-1.04) mg/dL Est GFR (CKD-EPI)AfAm (>60 ml/min/1.73 sqM) Est GFR (CKD-EPI)NonAf (>60 ml/min/1.73 sqM) Glucose (74-99) mg/dL Calcium (8.4-10.2) mg/dL Magnesium (1.6-2.3) mg/dL Total Bilirubin (0.2-1.3) mg/dL AST (14-36) U/L ALT (4-34) U/L Alkaline Phosphatase (38-126) U/L Total Protein (6.3-8.2) g/dL Albumin (3.5-5.0) g/dL Urine Color Yellow Urine Appearance Clear (Clear) Urine pH 7.5 (5.0-8.0) Ur Specific [place] 1.019 (1.001-1.035) Urine Protein Negative (Negative) Urine Glucose (UA) Negative (Negative) Urine Ketones Negative (Negative) Urine Blood Negative (Negative) Urine Nitrite Negative (Negative) Urine Bilirubin Negative (Negative) Urine Urobilinogen <2.0 (<2.0) mg/dL Ur Leukocyte Esterase Negative (Negative) Urine Opiates Screen Not Detected (NotDetected) Ur Oxycodone Screen Not Detected (NotDetected) Urine Methadone Screen Not Detected (NotDetected) Ur Propoxyphene Screen Not Detected (NotDetected) Ur Barbiturates Screen Not Detected (NotDetected) Valproic Acid 60.8 ug/mL U Tricyclic Antidepress Not Detected (NotDetected) Levetiracetam (3.0-60.0) ug/mL Ur Phencyclidine Scrn Not Detected (NotDetected) Ur Amphetamines Screen Not Detected (NotDetected) U Methamphetamines Scrn Not Detected (NotDetected) U Benzodiazepines Scrn Detected H (NotDetected) Urine Cocaine Screen Not Detected (NotDetected) U Marijuana (THC) Screen Not Detected (NotDetected) Serum Alcohol mg/dL Influenza Type A (PCR) Not Detected (Not Detectd) Influenza Type B (PCR) Not Detected (Not Detectd) RSV (PCR) Not Detected (Not Detectd) SARS-CoV-2 (PCR) Not Detected (Not Detectd) Disposition Clinical Impression: Generalized seizure, Breakthrough seizure, Bronchitis Disposition: HOME SELF-CARE Condition: Good Instructions (If sedation given, give patient instructions): Seizure/Epilepsy Discharge Instructions & Follow-Up, Acute Bronchitis (ED) Prescriptions: predniSONE [Deltasone] 20 mg PO BID #8 tab Azithromycin [Zithromax] 0 mg PO DIRECTED #6 tab Is patient prescribed a controlled substance at d/c from ED?: No Referrals: Luma Mcconnell DO [Primary Care Provider] - 1-2 days Gely Huynh MD [REFERRING] - 1-2 days
[2022-10-01] MEDS ORDERED: predniSONE 20 MG TAB PO STA (15:37)
[2022-10-01] MEDS ORDERED: IPRATROPIUM-ALBUTEROL 3 ML NEB INHALATION STA (15:37)
[2022-10-01 15:53] LABS: Basophils % (A) 0 %; Eosinophils # (A) 0.1 k/uL (0-0.7); Eosinophils % (A) 1 %; HCT 34.7 % (34.0-46.0); HGB 11.5 gm/dL (11.4-16.0); Lymphocytes # (A) 1.2 k/uL (1.0-4.8); Lymphocytes % (A) 11 %; MCH 27.9 pg (25.0-35.0); MCHC 33.1 g/dL (31.0-37.0); MCV 84.2 fL (80.0-100.0); Mean Platelet Volume 6.7; Monocytes # (A) 0.6 k/uL (0-1.0); Monocytes % (A) 6 %; Neutrophils # (A) 8.3 k/uL (1.3-7.7); Neutrophils % (A) 81 %; Platelet Count 299 k/uL (150-450); RBC 4.12 m/uL (3.80-5.40); WBC 10.3 k/uL (3.8-10.6)
[2022-10-01 16:22] LABS: ALT 19 U/L (4-34); AST 28 U/L (14-36); African American GFR (CKD) >90 (>60 ml/min/1.73 sqM); Alcohol <10 mg/dL; Alkaline Phosphatase 63 U/L (38-126); Anion Gap 7 mmol/L; Blood Urea Nitrogen 20 mg/dL (7-17); Calcium 8.4 mg/dL (8.4-10.2); Carbon Dioxide 31 mmol/L (22-30); Chloride 99 mmol/L (98-107); Glucose 120 mg/dL (74-99); Magnesium 1.9 mg/dL (1.6-2.3); Non-African American GFR(CKD) >90 (>60 ml/min/1.73 sqM); Potassium 4.1 mmol/L (3.5-5.1); Sodium 137 mmol/L (137-145); Total Bilirubin 0.2 mg/dL (0.2-1.3); Total Protein 6.2 g/dL (6.3-8.2)
--- NOTE | 2022-10-01 16:23 | XR ---
EXAMINATION TYPE: XR chest 2V DATE OF EXAM: 10/01/2022 COMPARISON: 09/23/2022 INDICATION: Cough seizure TECHNIQUE: Frontal and lateral views of the chest are obtained. FINDINGS: The heart size is normal. The pulmonary vasculature is normal. The lungs are clear. Right shoulder prosthesis is present. IMPRESSION: 1. No acute pulmonary process.
[2022-10-01 16:59] VITALS: BP 131/72; PULSE 75
[2022-10-01 19:09] LABS: Appearance,Urine Clear (Clear); Bilirubin,Urine Negative (Negative); Blood,Urine Negative (Negative); Color,Urine Yellow; Glucose,Urine (UA) Negative (Negative); Ketones,Urine Negative (Negative); Leukocyte Esterase,Urine Negative (Negative); Nitrite,Urine Negative (Negative); PH, Urine 7.5 (5.0-8.0); Protein,Urine Negative (Negative); Specific Gravity,Urine 1.019 (1.001-1.035); Urobilinogen,Urine <2.0 mg/dL (<2.0)
[2022-10-01 19:20] LABS: Amphetamine Screen,Urine Not Detected (NotDetected); Barbiturate Screen,Urine Not Detected (NotDetected); Benzodiazepines Screen,Urine Detected (NotDetected); Cocaine Screen,Urine Not Detected (NotDetected); Methadone Screen, Urine Not Detected (NotDetected); Opiate Screen,Urine Not Detected (NotDetected); Oxycodone Screen, Urine Not Detected (NotDetected); Phencyclidine Screen,Urine Not Detected (NotDetected); Tricyclic Antidepressant,Urine Not Detected (NotDetected); Urn Cannabinoid Scrn Not Detected (NotDetected)
== END 2022-10-01 20:46 | disposition home or self-care (01) ==
LOC: EC 14:28
DX: G40.409 Other generalized epilepsy and epileptic syndromes, not intractable, without status epilepticus (principal); J40 Bronchitis, not specified as acute or chronic; I10 Essential (primary) hypertension; E11.9 Type 2 diabetes mellitus without complications; E78.5 Hyperlipidemia, unspecified; K21.9 Gastro-esophageal reflux disease without esophagitis; F41.9 Anxiety disorder, unspecified; M19.90 Unspecified osteoarthritis, unspecified site; Z20.822 Contact with and (suspected) exposure to COVID-19; Z79.82 Long term (current) use of aspirin; Z79.84 Long term (current) use of oral hypoglycemic drugs; Z79.899 Other long term (current) drug therapy; Z88.5 Allergy status to narcotic agent; Z88.6 Allergy status to analgesic agent; Z88.8 Allergy status to other drugs, medicaments and biological substances
CPT/HCPCS: 36415; 94640; 93005; 80164; 80053; 80177; 83735; 85025; 81003; 80306; 87636; 71046; 99284; G0480; J7512; 80320

== ENCOUNTER → 2022-10-18 | Outpatient (CLI) | payer MEDICARE ==
[2022-10-18 08:27] LABS: Mean Platelet Volume 8.3
[2022-10-18 08:28] LABS: Platelet Count 111 k/uL (150-450)
[2022-10-18 12:19] LABS: Valproic Acid (Depakene) 83.6 ug/mL (50.0-100.0)
== END | disposition home or self-care (01) ==
LOC: LABWHC1 07:13
PROVIDERS: ATTEND Psychiatry & Neurology Neurology
DX: G40.009 Localization-related (focal) (partial) idiopathic epilepsy and epileptic syndromes with seizures of localized onset, not intractable, without status epilepticus (principal)
CPT/HCPCS: 36415; 80164; 80177; 84450; 84460; 85049

== ENCOUNTER 2022-11-13 17:14 | Emergency (ER) | payer MEDICARE ==
[2022-11-13 17:37] VITALS: TEMP 97.5
--- NOTE | 2022-11-13 19:29 | ED ---
Fall HPI - General Chief Complaint: Fall Stated Complaint: Fall/head injury Time Seen by Provider: 11/13/22 17:56 Source: patient, family Mode of arrival: ambulatory - History of Present Illness Initial Comments: This patient is 76-year-old woman who tripped and fell while at her home earlier today. She landed on her right side and also hit her head on the ground. She is complaining of mainly right elbow pain but also to the right hip area and mild headache. No loss consciousness. No nausea or vomiting. No neck pain, chest, back or abdomen pain. MD Complaint: fall -: hour(s) Fall From: standing When Fall Occurred: 1-[address] Fall Occurred: halfway/SNF Loss of Consciousness: unsure Prolonged Down Time?: no Location - Extremities: Right: Elbow, Thigh Severity: moderate Quality: aching Context: tripped/slipped - Related Data Home Medications Medication Instructions Recorded Confirmed Sertraline [Zoloft] 100 mg PO DAILY 06/01/14 10/01/22 traZODone HCL [Desyrel] 50 mg PO HS 06/01/14 10/01/22 Atorvastatin Calcium [Lipitor] 10 mg PO HS 01/21/19 10/01/22 Aspirin 81 mg PO DAILY 07/11/22 10/01/22 Omeprazole [PriLOSEC] 20 mg PO DAILY 07/11/22 10/01/22 Oxybutynin Chloride [Ditropan XL] 5 mg PO BID 07/11/22 10/01/22 metFORMIN HCL ER [Glucophage XR] 500 mg PO DAILY 07/11/22 10/01/22 Albuterol Inhaler [Ventolin Hfa 2 puff INHALATION RT-Q6H PRN 10/01/22 10/01/22 Inhaler] guaiFENesin [Mucinex] 600 mg PO Q12H PRN 10/01/22 10/01/22 Previous Rx's Medication Instructions Recorded Divalproex ER [Depakote ER] 500 mg PO DAILY tab 07/15/22 Losartan [Cozaar] 50 mg PO HS tab 07/15/22 Acetaminophen Tab [Tylenol] 650 mg PO Q6HR PRN tab 09/24/22 Divalproex [Depakote] 250 mg PO TID tab 09/24/22 guaiFENesin SYRUP 100MG/5ML 200 mg PO Q6HR PRN #240 ml 09/24/22 [Robitussin] levETIRAcetam [Keppra] 500 mg PO Q12HR #60 tab 09/24/22 Azithromycin [Zithromax] 0 mg PO DIRECTED #6 tab 10/01/22 predniSONE [Deltasone] 20 mg PO BID #8 tab 10/01/22 Allergies Allergy/AdvReac Type Severity Reaction Status Date / Time LANDY Inhibitors Allergy Nausea & Verified 11/13/22 17:37 Vomiting. PASSED OUT amlodipine [From Norvasc] Allergy Nausea & Verified 11/13/22 17:37 Vomiting, PASSED OUT hydrocodone Allergy Unknown Verified 11/13/22 17:37 tramadol Allergy Nausea & Verified 11/13/22 17:37 Vomiting, PASSED OUT codeine AdvReac Nausea Verified 11/13/22 17:37 Review of Systems ROS Statement: Those systems with pertinent positive or pertinent negative responses have been documented in the HPI. ROS Other: All systems not noted in ROS Statement are negative. Constitutional: Denies: fever, chills, weakness Eyes: Denies: vision change Respiratory: Denies: cough, dyspnea Cardiovascular: Denies: chest pain, palpitations, edema Gastrointestinal: Denies: abdominal pain, vomiting, diarrhea Genitourinary: Denies: dysuria, hematuria Musculoskeletal: Reports: as per HPI, arthralgia. Denies: back pain Skin: Denies: rash Neurological: Reports: headache. Denies: weakness, numbness, paresthesias, confusion Past Medical History Past Medical History: Cancer, Diabetes Mellitus, GERD/Reflux, Hyperlipidemia, Hypertension, Liver Disease, Osteoarthritis (OA), Seizure Disorder Additional Past Medical History / Comment(s): Occ sciatica. Basal cell CA nose. hemorrhoids & some bleeding. ?seizure activity w/dizzyness/weakness few years ago - no seizure meds. Bladder leakage. Varicose veins.enlarged liver, STILLBORN IN THE 70'S History of Any Multi-Drug Resistant Organisms: MRSA Date of last positivie culture/infection: 03/24/2014 MDRO Source:: Face Past Surgical History: Cholecystectomy, Heart Catheterization, Hysterectomy, Joint Replacement, Orthopedic Surgery, Tonsillectomy Additional Past Surgical History / Comment(s): BILATERAL CATARACTS. rashid shoulder rot cuff, ORIF upper rt arm, CARPAL TUNNEL RASHID, BONE REPLACEMENT IN RT WRIST W/ PLATE, CERVICAL NECK SX, bilat elbow tendon SX. BENIGN CYST REMOVED RASHID ARMS AND RT HAND, rashid knee replacements. Past Anesthesia/Blood Transfusion Reactions: Motion Sickness Past Psychological History: Anxiety Smoking Status: Never smoker Past Alcohol Use History: None Reported Past Drug Use History: None Reported - Past Family History Mother Family Medical History: Cancer Additional Family Medical History / Comment(s): BREAST General Exam Limitations: no limitations General appearance: alert, in no apparent distress Head exam: Present: atraumatic, normocephalic Eye exam: Present: normal appearance. Absent: scleral icterus, conjunctival injection Neck exam: Present: normal inspection Respiratory exam: Present: normal lung sounds bilaterally. Absent: respiratory distress, wheezes, rales, rhonchi, stridor Cardiovascular Exam: Present: regular rate, normal rhythm, normal heart sounds. Absent: systolic murmur, diastolic murmur, rubs, gallop GI/Abdominal exam: Present: soft. Absent: distended, tenderness, guarding, rebound, rigid, mass Back exam: Present: normal inspection. Absent: paraspinal tenderness, vertebral tenderness Neurological exam: Present: alert, oriented X3, CN II-XII intact. Absent: motor sensory deficit Skin exam: Present: warm, dry, intact, normal color. Absent: rash Course Vital Signs 11/13/22 11/13/22 11/13/22 17:33 18:28 21:22 Temperature 97.5 F L Pulse Rate 64 72 70 Respiratory 20 12 18 Rate Blood Pressure 121/78 120/74 115/69 O2 Sat by Pulse 99 98 98 Oximetry Medical Decision Making - Medical Decision Making The patient did have computed tomography scan of the brain which I interpreted as being negative for acute bony injury or intracranial hemorrhage. The patient had x-ray of the hip which I interpreted as being negative for acute bony injury/dislocation. The patient had x-ray of the elbow which I interpreted as being negative for acute bony injury/dislocation. This patient is 76-year-old woman who had gone level fall at home. She was continued to have some pain and therefore presented to emergency department for further evaluation. The workup here is negative. Discussed appropriate further care and follow-up. Was pt. sent in by a medical professional or institution (, PA, SUPERVISOR [employer], urgent care, hospital, or halfway...) When possible be specific @ -[No] Did you speak to anyone other than the patient for history (EMS, parent, family, police, friend...)? What history was obtained from this source @ -[No] Did you review nursing and triage notes (agree or disagree)? Why? @ -[I reviewed and agree with nursing and triage notes] Were old charts reviewed (outside hosp., previous admission, EMS record, old EKG, old radiological studies, urgent care reports/EKG's, halfway records)? Report findings @ -[No old charts were reviewed] Differential Diagnosis (chest pain, altered mental status, abdominal pain women, abdominal pain men, vaginal bleeding, weakness, fever, dyspnea, syncope, headache, dizziness, GI bleed, back pain, seizure, CVA, palpatations, mental health, musculoskeletal)? @ -[Differential Musculoskeletal Muscular strain, contusion, ligament sprain, fracture, arthritis, bursitis, muscle spasm, nerve compression ... This is not meant to be in all inclusive list EKG interpreted by me (3pts min.). @ -[ X-rays interpreted by me (1pt min.). @ -[As above CT interpreted by me (1pt min.). @ -[As above U/S interpreted by me (1pt. min.). @ -[None done] What testing was considered but not performed or refused? (CT, X-rays, U/S, labs)? Why? @ -[None] What meds were considered but not given or refused? Why? @ -[None] Did you discuss the management of the patient with other professionals (professionals i.e. , PA, [employer], lab, RT, psych nurse, social media sr strategy manager, railroad design consultant, teacher, fisheries officer, pillowcase cleaner)? Give summary @ -[No] Was smoking cessation discussed for >3mins.? @ -[No] Was critical care preformed (if so, how long)? @ -[No] Were there social determinants of health that impacted care today? How? (Homele ssness, low income, unemployed, alcoholism, drug addiction, transportation, low edu. Level, literacy, decrease access to med. care, fci, rehab)? @ -[No] Was there de-escalation of care discussed even if they declined (Discuss DNR or withdrawal of care, Hospice)? DNR status @ -[No] What co-morbidities impacted this encounter? (DM, HTN, Smoking, COPD, CAD, Cancer, CVA, ARF, Chemo, Hep., AIDS, mental health diagnosis, sleep apnea, morbid obesity)? @ -[None] Was patient admitted / discharged? Hospital course, mention meds given and route, prescriptions, significant lab abnormalities, going to OR and other pertinent info. @ -Discharged Undiagnosed new problem with uncertain prognosis? @ -[No] Drug Therapy requiring intensive monitoring for toxicity (Heparin, Nitro, Insulin, Cardizem)? @ -[No] Were any procedures done? @ -[No] Diagnosis/symptom? @ -[Acute fall injury Closed head injury Right elbow contusion Right hip contusion Acute, or Chronic, or Acute on Chronic? @ -[Acute Uncomplicated (without systemic symptoms) or Complicated (systemic symptoms)? @ -[Uncomplicated Side effects of treatment? @ -[No] Exacerbation, Progression, or Severe Exacerbation? @ -[No] Poses a threat to life or bodily function? How? (Chest pain, USA, GA, pneumonia, PE, COPD, DKA, ARF, appy, cholecystitis, CVA, Diverticulitis, Homicidal, Suicidal, threat to staff... and all critical care pts) @ -[No] Disposition Clinical Impression: Fall, Multiple contusions Disposition: HOME SELF-CARE Condition: Good Instructions (If sedation given, give patient instructions): Fall Prevention for Older Adults (ED), Contusion in Adults (ED) Is patient prescribed a controlled substance at d/c from ED?: No Referrals: Luma Mcconnell DO [Primary Care Provider] - 1-2 days
--- NOTE | 2022-11-13 20:04 | CT ---
EXAMINATION TYPE: CT brain wo con CT DLP: 1092.4 mGycm, Automated exposure control for dose reduction was used. DATE OF EXAM: 11/13/2022 7:48 PM COMPARISON: Prior CT brain 07/11/2022 CLINICAL INDICATION:Female, 76 years old with history of fall injury, pain after fall. TECHNIQUE: Brain: Multiple axial CT images of the brain were obtained without IV contrast. Coronal and sagittal reformats reviewed. FINDINGS: Brain: Extra-axial spaces: No abnormal extra-axial fluid collections. Ventricular system: Within normal limits Cerebral parenchyma: Cerebral atrophy. No acute intraparenchymal hemorrhage or mass effect. The mayers -white junction is well differentiated. Scattered hypoattenuating areas are seen within the white mat ter. Cerebellum: Unremarkable. Mass effect: No evidence of midline shift. Intracranial vasculature: Atherosclerotic calcifications of the intracranial vessels. Soft tissues: Normal. Calvarium/osseous structures: No depressed skull fracture. Paranasal sinuses and mastoid air cells: Mastoid air cells are clear. Mild mucosal thickening of the right sphenoid sinus. Visualized orbits: Bilateral aphakia IMPRESSION: 1. No acute intracranial process. 2. Nonspecific white matter changes, likely secondary to chronic small vessel ischemic disease.
--- NOTE | 2022-11-13 20:08 | XR ---
EXAMINATION TYPE: XR elbow complete RT DATE OF EXAM: 11/13/2022 8:03 PM INDICATION: Patient age:Female; 76 years old; Reason for study: fall injury; [facility]. COMPARISON: None TECHNIQUE: The right elbow was examined in AP, lateral, and oblique projections. FINDINGS: No evidence of any acute osseous pathology, joint dislocation, or soft tissue swelling is n oted. No evidence of joint effusion is present. IMPRESSION: No evidence of acute fracture.
--- NOTE | 2022-11-13 20:09 | XR ---
EXAMINATION TYPE: XR Hip RT and AP Pelvis DATE OF EXAM: 11/13/2022 8:03 PM INDICATION: Patient age:Female; 76 years old; Reason for study: fall injury; PHH. COMPARISON: CT abdomen pelvis 08/31/2021. TECHNIQUE: The right hip was examined in the frontal and lateral projections and a AP pelvis. FINDINGS: No evidence of any acute osseous pathology, joint dislocation, or soft tissue swelling. Mil d bilateral hip medial joint space narrowing with acetabular sclerosis. IMPRESSION: 1. No acute osseous pathology. 2. Mild osteoarthritic changes of both hips.
[2022-11-13 21:23] VITALS: BP 115/69; PULSE 70; RESP 18
== END 2022-11-13 21:23 | disposition home or self-care (01) ==
LOC: EC 17:14
DX: S50.01XA Contusion of right elbow, initial encounter (principal); S70.01XA Contusion of right hip, initial encounter; S09.90XA Unspecified injury of head, initial encounter; E11.9 Type 2 diabetes mellitus without complications; I10 Essential (primary) hypertension; K21.9 Gastro-esophageal reflux disease without esophagitis; E78.5 Hyperlipidemia, unspecified; F41.9 Anxiety disorder, unspecified; Z79.84 Long term (current) use of oral hypoglycemic drugs; Z79.82 Long term (current) use of aspirin; Z79.899 Other long term (current) drug therapy; Z88.5 Allergy status to narcotic agent; Z88.8 Allergy status to other drugs, medicaments and biological substances; W01.0XXA Fall on same level from slipping, tripping and stumbling without subsequent striking against object, initial encounter; Y92.129 Unspecified place in nursing home as the place of occurrence of the external cause
CPT/HCPCS: 70450; 73502; 99284

== ENCOUNTER → 2023-09-04 | Outpatient (CLI) | payer MEDICARE ==
--- NOTE | 2023-09-04 16:42 | US ---
EXAMINATION TYPE: US venous doppler duplex LE LT DATE OF EXAM: 09/04/2023 4:10 PM COMPARISON: NONE CLINICAL INDICATION: Female, 77 years old with history of I80.9 HLEBITIS AND THROMBOPHLEBITIS OF UNSP ECIFIED; Patient is having left leg pain for one month. Swelling of the ankle. No warmth or redness. SIDE PERFORMED: Left TECHNIQUE: The lower extremity deep venous system is examined utilizing real time linear array sonog lazarus with graded compression, doppler sonography and color-flow sonography. VESSELS IMAGED: Common Femoral Vein Deep Femoral Vein Greater Saphenous Vein * Femoral Vein Popliteal Vein Small Saphenous Vein * Proximal Calf Veins (* superficial vessels) DESCRIPTION: Grayscale, color doppler, spectral doppler imaging performed of the deep veins of the le ft lower extremity. There is normal flow, compressibility, vascular waveforms. Limitation of the study: Limited visualization due to deep diving vessels and edema. IMPRESSION: Negative for DVT, left lower extremity.
== END | disposition home or self-care (01) ==
LOC: RADUSWWP 15:34
PROVIDERS: ATTEND Orthopaedic Surgery
DX: M25.562 Pain in left knee (principal); I80.9 Phlebitis and thrombophlebitis of unspecified site; R60.9 Edema, unspecified
CPT/HCPCS: 85379; 85652; 86140

== ENCOUNTER → 2023-09-22 | Outpatient (CLI) | payer MEDICARE, OTHER ==
--- NOTE | 2023-09-22 14:21 | NM ---
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 Immedia te images and 3 hours post injection images acquired. FINDINGS: There is perfusion to the knee bilaterally. Slightly asymmetric increased perfusion to the right knee . Photopenic defects compatible with previous replacement surgery. There is symmetric uptake involving the periprosthetic region bilaterally. IMPRESSION: No diagnostic evidence of infection or loosening of the left knee. If there is high clinical concern correlate with tagged WBC study.
== END | disposition home or self-care (01) ==
LOC: RADNMMAIN 07:29
PROVIDERS: ATTEND Orthopaedic Surgery
DX: M70.52 Other bursitis of knee, left knee (principal); M25.562 Pain in left knee; Z96.652 Presence of left artificial knee joint
CPT/HCPCS: 78315; A9503

== ENCOUNTER → 2023-10-14 | Outpatient (CLI) | payer MEDICARE, OTHER ==
--- NOTE | 2023-10-14 14:13 | MM ---
Reason for Exam: Clinical finding. Last mammogram was performed 4 year(s) and 10 month(s) ago. Patient History: Menarche at age 19. First Full-Term at age 29. Left ovary removed at age 32. Right ovary removed at age 32. Hysterectomy at age 32. Postmenopausal. Other cancer, age 69. Estrogen for 30 years from age 32 until age 64. Mother had breast cancer, age 60. Risk Values: Laura 5 year model risk: 3.2%. NCI Lifetime model risk: 6.8%. Tissue Density: There are scattered areas of fibroglandular density. Findings: Analyzed By CAD. The pattern is symmetrical. No significant interval change. No discrete abnormality in the subareolar left breast the area of the patient's pain. Benign-appearing stable spherical calcifications are present. No suspicious groups of microcalcifications, spiculated or lobular masses, architectural distortion or other secondary signs of malignancy are mammographically apparent. Overall Assessment: Incomplete: need additional imaging evaluation, BI-RAD 0 Management: Diagnostic Breast Ultrasound of the left breast. A negative mammogram report should not preclude additional follow up of suspicious palpable abnormalities. Patient should continue monthly self breast exam. A clinical breast exam by your physician is recommended on an annual basis and results should be correlated with mammographic findings. Note on Laura scores and lifetime risk: 1. A Laura score greater than 3% is considered moderate risk. If this is the case, consider specialist referral to assess eligibility for a risk reducing agent. 2. If overall lifetime risk for the development of breast cancer is 20% or higher, the patient may qualify for future screening with alternating mammogram and breast MRI. Electronically signed and approved by: Peña Marc D.O. Radiologis
--- NOTE | 2023-10-14 14:53 | USB ---
Reason for Exam: Clinical finding. Patient History: Menarche at age 19. First Full-Term at age 29. Left ovary removed at age 32. Right ovary removed at age 32. Hysterectomy at age 32. Postmenopausal. Other cancer, age 69. Estrogen for 30 years from age 32 until age 64. Mother had breast cancer, age 60. Risk Values: Laura 5 year model risk: 3.2%. NCI Lifetime model risk: 6.8%. Technique: Method: Targeted. Prior Study Comparison: 10/25/2013 Bilateral Screening Mammogram, [facility]. 11/09/2015 Bilateral Screening Mammogram, [facility]. 11/19/2018 Bilateral Screening Mammogram, [facility]. Findings: The retroareolar of the left breast was scanned. No solid or cystic masses are identified.. Overall Assessment: Negative, BI-RAD 1 Management: Screening Mammogram of both breasts in 1 year. A clinical breast exam by your physician is recommended on an annual basis and results should be correlated with mammographic findings. This exam should not preclude additional follow-up of suspicious palpable abnormalities. Results were given to the patient verbally at the time of exam. Electronically signed and approved by: Peña Marc D.O. Radiologis
== END | disposition home or self-care (01) ==
LOC: RADMAMWWP 13:36
PROVIDERS: ATTEND Internal Medicine
DX: R92.323 Mammographic fibroglandular density, bilateral breasts (principal); Z78.0 Asymptomatic menopausal state; Z80.3 Family history of malignant neoplasm of breast
CPT/HCPCS: 77066; 76642; G0279; 77062

== ENCOUNTER → 2023-11-26 | Outpatient (CLI) | payer MEDICARE, OTHER ==
[2023-11-27 02:53] LABS: Basophils # (A) 0.04 X 10*3/uL (0.00-0.10); Basophils % (A) 0.6 %; Eosinophils # (A) 1.55 X 10*3/uL (0.04-0.35); Eosinophils % (A) 25.1 %; HGB 11.9 g/dL (12.0-15.0); Lymphocytes # (A) 2.01 X 10*3/uL (0.90-5.00); Lymphocytes % (A) 32.5 %; MCH 25.4 pg (27.0-32.0); MCHC 29.8 g/dL (32.0-37.0); MCV 85.3 FL (80.0-97.0); Mean Platelet Volume 10.9 FL (9.5-12.2); Monocytes # (A) 0.43 X 10*3/uL (0.20-1.00); NRBC Per 100 WBC 0 X 10*3/uL (0.00-0.01); Neutrophils # (A) 2.11 X 10*3/uL (1.80-7.70); Neutrophils % (A) 34.2 %; Platelet Count 190 X 10*3/uL (140-440); RBC 4.69 X 10*6/uL (4.10-5.20); RDW 16.7 % (11.5-14.5); WBC 6.18 X 10*3/uL (4.50-10.00)
== END | disposition home or self-care (01) ==
LOC: LABPAT 13:57
PROVIDERS: ATTEND Surgery
DX: Z01.818 Encounter for other preprocedural examination (principal); E65 Localized adiposity; I21.09 ST elevation (STEMI) myocardial infarction involving other coronary artery of anterior wall; R94.31 Abnormal electrocardiogram [ECG] [EKG]
CPT/HCPCS: 85025; 93005

== ENCOUNTER 2024-04-26 06:38 | Inpatient (IN) | payer MEDICARE, OTHER ==
[2024-04-21 15:03] VITALS: BMI 32.8
[2024-04-26] MEDS: FAMOTIDINE 20 MG/2 ML VIAL IV STA (08:00)
[2024-04-26] MEDS: ONDANSETRON 4 MG/2 ML VIAL IVP ONE (08:00)
[2024-04-26] MEDS: DEXAMETHASONE SOD PHOSPHATE 4 MG/ML 1 ML VIAL IV ONE (08:00)
[2024-04-26] MEDS: IV FLUID CONTINUATION 1,000 ML IV ONE ×2 (08:10→16:05)
[2024-04-26] MEDS: MIDAZOLAM 2 MG/2 ML VIAL IV ONE (08:11)
[2024-04-26 08:14] LABS: Basophils % (A) 0 %; Eosinophils # (A) 0.4 k/uL (0-0.7); Eosinophils % (A) 7 %; HCT 41.7 % (34.0-46.0); HGB 13.6 gm/dL (11.4-16.0); Lymphocytes # (A) 1.5 k/uL (1.0-4.8); Lymphocytes % (A) 30 %; MCH 26.7 pg (25.0-35.0); MCHC 32.6 g/dL (31.0-37.0); MCV 81.9 fL (80.0-100.0); Mean Platelet Volume 7.3; Monocytes # (A) 0.3 k/uL (0-1.0); Monocytes % (A) 6 %; Neutrophils # (A) 2.8 k/uL (1.3-7.7); Neutrophils % (A) 55 %; Platelet Count 194 k/uL (150-450); RDW 15.3 % (11.5-15.5); WBC 5.1 k/uL (3.8-10.6)
--- NOTE | 2024-04-26 08:17 | P.GSHP ---
History of Present Illness H&P Date: 04/26/24 Chief Complaint: Panniculus This is a 78-year-old female who has a large well-formed panniculus. The panniculus hangs to her knee approximately. Patient developed issues with chronic skin irritation and rashes. Patient is aware of the risk of surge including wound infection and bleeding. She is aware that is not a cosmetic procedure. Past Medical History Past Medical History: Cancer, Dementia, Diabetes Mellitus, GERD/Reflux, Hy perlipidemia, Hypertension, Liver Disease, Osteoarthritis (OA), Seizure Disorder, Vascular Disorder Additional Past Medical History / Comment(s): no current sores under abd fo ld,Occ sciatica. Basal cell CA nose. hemorrhoids & some bleeding.Per Shell nurse @ [facility], states "last seizure December 2023" . Bladder leakage. Varicose veins.enlarged liver,insomnia,lumbar spinal stenosis,rashid lower leg swelling History of Any Multi-Drug Resistant Organisms: MRSA Date of last positivie culture/infection: 03/24/2014 MDRO Source:: Face Past Surgical History: Appendectomy, Cholecystectomy, Heart Catheterization, Hysterectomy, Joint Replacement, Orthopedic Surgery, Tonsillectomy Additional Past Surgical History / Comment(s): BILATERAL CATARACTS. rashid shoulder rot cuff, ORIF upper rt arm, CARPAL TUNNEL RASHID, BONE REPLACEMENT IN RT WRIST W/ PLATE, CERVICAL NECK SX, bilat elbow tendon SX. BENIGN CYST REMOVED RASHID ARMS AND RT HAND, rashid knee replacements. Past Anesthesia/Blood Transfusion Reactions: Motion Sickness Additional Past Anesthesia/Blood Transfusion Reaction / Comment(s): hx of seizures coming out of anesthesia in the past. no hx blood transfusion. claustrophobic Smoking Status: Never smoker - Past Family History Mother Family Medical History: Cancer Additional Family Medical History / Comment(s): BREAST Medications and Allergies Home Medications Medication Instructions Recorded Confirmed Type traZODone HCL [Desyrel] 75 mg PO HS 06/01/14 04/26/24 History Atorvastatin Calcium [Lipitor] 10 mg PO HS 01/21/19 04/26/24 History Aspirin 81 mg PO DAILY 07/11/22 04/26/24 History Omeprazole [PriLOSEC] 40 mg PO QAM 07/11/22 04/26/24 History metFORMIN HCL ER [Glucophage XR] 500 mg PO DAILY 07/11/22 04/26/24 History oxyBUTYnin chloride [Ditropan XL] 5 mg PO BID 07/11/22 04/26/24 History Acetaminophen Tab [Tylenol] 650 mg PO Q6HR PRN tab 09/24/22 04/26/24 Rx ARIPiprazole [Abilify] 2 mg PO QAM 12/03/23 04/26/24 History Artificial Tears-Hypromellose 1 drops BOTH EYES BID 12/03/23 04/26/24 History [Artificial Tear Drops] DULoxetine HCL 40 mg PO QAM 12/03/23 04/26/24 History Furosemide [Lasix] 20 mg PO DAILY 12/03/23 04/26/24 History Gabapentin [Neurontin] 300 mg PO BID 12/03/23 04/26/24 History Lidocaine 5% Patch [Lidoderm] 1 patch TOPICAL DAILY 12/03/23 04/26/24 History Losartan [Cozaar] 25 mg PO HS 12/03/23 04/26/24 History Mirtazapine [Remeron] 15 mg PO HS 12/03/23 04/26/24 History Cholecalciferol [Vitamin D3 (25 25 mcg PO DAILY 04/21/24 04/26/24 History Mcg = 1000 Iu)] Divalproex Sodium [Depakote] 500 mg PO BID 04/21/24 04/26/24 History Potassium Chloride 10 meq PO DAILY 04/21/24 04/26/24 History polyethylene glycoL 3350 [Miralax] 17 gm PO DAILY 04/21/24 04/26/24 History Allergies Allergy/AdvReac Type Severity Reaction Status Date / Time LANDY Inhibitors Allergy Nausea & Verified 04/26/24 08:13 Vomiting. PASSED OUT amlodipine [From Norvasc] Allergy Nausea & Verified 04/26/24 08:13 Vomiting, PASSED OUT hydrocodone Allergy Unknown Verified 04/26/24 08:13 midazolam [From Versed] Allergy Unknown Verified 04/26/24 08:13 tramadol Allergy Nausea & Verified 04/26/24 08:13 Vomiting, PASSED OUT codeine AdvReac Nausea Verified 04/26/24 08:13 Surgical - Exam Vital Signs Temp Pulse Resp BP Pulse Ox 96.4 F L 74 16 152/69 99 04/26/24 08:06 04/26/24 08:06 04/26/24 08:06 04/26/24 08:06 04/26/24 08:06 - General well developed, well nourished, no distress - Eyes PERRL - ENT normal pinna - Neck no masses - Respiratory normal expansion - Cardiovascular Rhythm: regular - Abdomen Well-formed panniculus Abdomen: soft, non tender Results - Labs 04/26/24 08:09 Assessment and Plan Assessment: Panniculus with chronic skin rotation. Patient will undergo panniculectomy.
[2024-04-26] MEDS: LACTATED RINGERS 1,000 ML IV SCH ×2 (08:24→16:05)
[2024-04-26 08:28] LABS: ALT 10 U/L (4-34); AST 25 U/L (14-36); African American GFR (CKD) >90 (>60 ml/min/1.73 sqM); Albumin 4.3 g/dL (3.5-5.0); Alkaline Phosphatase 75 U/L (38-126); Anion Gap 2 mmol/L; Blood Urea Nitrogen 20 mg/dL (7-17); Calcium 9.3 mg/dL (8.4-10.2); Carbon Dioxide 33 mmol/L (22-30); Chloride 100 mmol/L (98-107); Glucose 86 mg/dL (74-99); Non-African American GFR(CKD) 84 (>60 ml/min/1.73 sqM); Potassium 4.2 mmol/L (3.5-5.1); Sodium 135 mmol/L (137-145); Total Bilirubin 0.5 mg/dL (0.2-1.3); Total Protein 7.3 g/dL (6.3-8.2)
[2024-04-26] MEDS: HEPARIN SODIUM,PORCINE 5,000 UNIT/ML 1 ML VIAL SQ STA (08:29)
[2024-04-26] MEDS ORDERED: PROPOFOL 10 MG/ML 20 ML VIAL IV ONE (08:37)
[2024-04-26] MEDS ORDERED: LIDOCAINE 1% INJ 10MG/ML (20 ML MDV) ONE (08:37)
[2024-04-26] MEDS ORDERED: ROCURONIUM 10 MG/ML (5 ML VIAL) IV ONE (08:37)
[2024-04-26] MEDS ORDERED: GLYCOPYRROLATE 0.2 MG/ML 2 ML VIAL ONE (08:37)
[2024-04-26] MEDS ORDERED: PHENYLEPHRINE 10 MG/ML VIAL ONE (08:37)
[2024-04-26] MEDS ORDERED: SUCCINYLCHOLINE CHLORIDE 200 MG/10 ML VIAL IV ONE (08:37)
[2024-04-26] MEDS ORDERED: KETOROLAC 15 MG/ML 1 ML VIAL ONE (08:37)
[2024-04-26] MEDS ORDERED: NEOSTIGMINE 1 MG/ML 10 ML VIAL ONE (08:37)
[2024-04-26] MEDS ORDERED: fentaNYL (PF) 50 MCG/ML 2 ML AMP ONE (08:37)
[2024-04-26] MEDS ORDERED: DEXAMETHASONE SOD PHOSPHATE 4 MG/ML 1 ML VIAL ONE (08:37)
[2024-04-26] MEDS ORDERED: ROPIVACAINE 5 MG/ML 30 ML VIAL ONE (08:37)
--- NOTE | 2024-04-26 09:14 | P.ANPRN ---
Procedure Note - Anesthesia - Nerve Block Performed Bilateral Erector Spinae Single Time Out Performed: Yes Date of Procedure: 04/26/24 Procedure Start Time: : Procedure Stop Time: :16 Location of Patient: PreOp Indication: Acute Post-Operative Pain, Analgesia, Requested by Surgeon Sedation Type: Sedate with meaningful contact maintained Preparation: Sterile Prep Position: Sitting Catheter: None Needle Types: Pajunk Needle Gauge: 21 Ultrasound used to visualize needle placement: Yes Ultrasound used to observe medication spread: Yes Injectate: 0.5% Ropivacaine (see comment for volume) ([id number]---Zvue side. T10 spine level.) Blood Aspirated: No Pain Paresthesia on Injection Noted: No Resistance on Injection: Normal Image Stored and Saved: Yes Events: Uneventful and Well Tolerated
[2024-04-26] MEDS: LACTATED RINGERS 1,000 ML IV ONE (10:20)
[2024-04-26] MEDS ORDERED: NALOXONE 0.4 MG/ML 1 ML VIAL IV PRN (10:52)
[2024-04-26] MEDS ORDERED: ONDANSETRON 4 MG/2 ML VIAL IVP PRN (10:52)
--- NOTE | 2024-04-26 10:52 | P.OP ---
Date of Procedure: 04/26/24 Preoperative Diagnosis: Panniculus Postoperative Diagnosis: Panniculus Procedure(s) Performed: Panniculectomy Anesthesia: ROLLY Surgeon: Nadir Madrigal Estimated Blood Loss (ml): 100 Pathology: other (Panniculus) Condition: stable Disposition: PACU Operative Findings: 11.6 pound panniculus Description of Procedure: The patient was placed on the operative table in the supine position. Her chest and abdomen was prepped in the usual sterile fashion. The Omni drapes were applied. Patient had a well-formed panniculus. There is evidence of a low midline scar as well as a right subcostal scar. The infra pannicular area was marked with a marking pen. And then the skin was incised. Use electrocautery the subcu tissue divided to the level of fascia. At this point the panniculus was elevated off the fascia using electrocautery. Several perforating vessels were ligated with 0 silk ties. Due to the patient's right subcostal incision. It was divided to perform a María Elena tree incision. The scar area of the right subcostal incision was incised and the skin inferior to this were was marked. This was done bilaterally. And then the skin was elevated off the abdominal wall electrocautery. The specimen was sent to pathology for w her weight. The specimen weighed 11.6 pounds. 2 LILLIE drains were placed through separate stab incisions at the pubic area. And then Kai's fascia was closed with 0 Vicryl. The skin was closed with renee. The patient was sent to recovery room in stable condition.
[2024-04-26 11:19] LABS: Glucose,Whole Blood 129 mg/dL (70-110)
[2024-04-26] MEDS: HYDROmorphone 0.5 MG/0.5 ML SYRINGE IVP PRN (14:50)
[2024-04-26] MEDS: KETOROLAC 15 MG/ML 1 ML VIAL IVP SCH (16:56)
[2024-04-26 17:42] LABS: Glucose,Whole Blood 170 mg/dL (70-110)
[2024-04-26] MEDS: SODIUM CHLORIDE 0.9% 1,000 ML IV SCH (18:16)
[2024-04-26] MEDS: SODIUM CHLORIDE 0.9% 1,000 ML IV ONE (18:34)
[2024-04-26 19:22] LABS: Basophils % (A) 0 %; Eosinophils # (A) 0.1 k/uL (0-0.7); Eosinophils % (A) 0 %; HGB 10.8 gm/dL (11.4-16.0); Hypochromasia Slight; Lymphocytes # (A) 0.8 k/uL (1.0-4.8); Lymphocytes % (A) 5 %; MCH 26.9 pg (25.0-35.0); MCHC 31.7 g/dL (31.0-37.0); MCV 84.6 fL (80.0-100.0); Mean Platelet Volume 7.2; Monocytes # (A) 0.9 k/uL (0-1.0); Monocytes % (A) 6 %; Neutrophils # (A) 13.9 k/uL (1.3-7.7); Neutrophils % (A) 88 %; Platelet Count 281 k/uL (150-450); RBC 4.02 m/uL (3.80-5.40); RDW 15.5 % (11.5-15.5); WBC 15.9 k/uL (3.8-10.6)
[2024-04-26 19:36] LABS: ALT 69 U/L (4-34); AST 138 U/L (14-36); African American GFR (CKD) 72 (>60 ml/min/1.73 sqM); Albumin 3.4 g/dL (3.5-5.0); Albumin/Globulin Ratio 1.4; Alkaline Phosphatase 71 U/L (38-126); Anion Gap 7 mmol/L; Blood Urea Nitrogen 26 mg/dL (7-17); Calcium 8.6 mg/dL (8.4-10.2); Carbon Dioxide 27 mmol/L (22-30); Chloride 100 mmol/L (98-107); Globulin 2.5 g/dL; Glucose 170 mg/dL (74-99); Non-African American GFR(CKD) 63 (>60 ml/min/1.73 sqM); Potassium 4.5 mmol/L (3.5-5.1); Sodium 134 mmol/L (137-145); Total Bilirubin 0.7 mg/dL (0.2-1.3); Total Protein 5.9 g/dL (6.3-8.2)
[2024-04-26 20:52] LABS: Glucose,Whole Blood 189 mg/dL (70-110)
[2024-04-27] MEDS: ACETAMINOPHEN TAB 325 MG TAB PO PRN (05:44)
[2024-04-27 07:14] LABS: Glucose,Whole Blood 121 mg/dL (70-110)
[2024-04-27] MEDS: ENOXAPARIN 40 MG/0.4 ML SYRINGE SQ SCH (08:37)
[2024-04-27] MEDS ORDERED: DEXTROSE 50% SYRINGE 50 ML IVP PRN (09:44)
[2024-04-27] MEDS: CHOLECALCIFEROL 25 MCG (1000 IU) TABLET PO SCH (10:57)
[2024-04-27] MEDS: LIDOCAINE 4% PATCH TOPICAL SCH (10:57)
[2024-04-27] MEDS: DIVALPROEX 500 MG TABLET.DR PO SCH (10:57)
[2024-04-27] MEDS: DULoxetine HCL 20 MG CAPSULE.DR PO SCH (10:58)
[2024-04-27] MEDS: ARTIFICIAL TEARS-HYPROMELLOSE DROPS 15 ML BTL BOTH EYES SCH (10:58)
[2024-04-27] MEDS: OXYBUTYNIN XL 5 MG TAB.ER.24 PO SCH (10:58)
[2024-04-27] MEDS: ARIPiprazole 2 MG TAB PO SCH (10:58)
--- NOTE | 2024-04-27 12:25 | P.PN ---
Subjective Progress Note Date: 04/27/24 SURGICAL PROGRESS NOTE CHIEF COMPLAINT: Panniculus HISTORY OF PRESENT ILLNESS: Patient is postop day #1 status post panniculectomy. Patient reports pain is controlled. She is having flatus. Denies any nausea or vomiting. Patient with 2 LILLIE drains with sanguinous output. First LILLIE drain 75 mL output second LILLIE drain 90 mL output. Afebrile. WBC 15.9 Hgb 10.8 mildly elevated LFTs PHYSICAL EXAM: VITAL SIGNS: Reviewed. GENERAL: Well-developed in no acute distress. HEENT: No sclera icterus. Extraocular movements grossly intact. Moist buccal mucosa. Head is atraumatic, normocephalic. ABDOMEN: Soft. Nondistended. Tenderness at incision site. Surgical dressing was pulled down. Incision is clean dry and intact. Midline incision small area of a tiny amount of bleeding noted. LILLIE drains with sanguinous output. NEUROLOGIC: Alert and oriented. Cranial nerves II through XII grossly intact. ASSESSMENT: 1. 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 -DVT prophylaxis Lovenox and GI prophylaxis Pepcid Physician Corporate Consultant note has been reviewed by physician. Signing provider agrees with the documented findings, assessment, and plan of care. Objective - Vital Signs Vital signs: Vital Signs Temp 98.7 F 04/27/24 07:57 Pulse 58 L 04/27/24 07:57 Resp 15 04/27/24 07:57 BP 100/65 04/27/24 07:57 Pulse Ox 96 04/27/24 07:57 FiO2 Intake & Output 04/26/24 04/27/24 04/27/24 18:59 06:59 18:59 Intake Total 2049 2860 Output Total 1045 615 60 Balance 1005 2245 -60 Weight 76.1 kg Intake: IV 2049 Intake, IV Titration 2500 Amount Sodium Chloride 0.9% 1, 1500 000 ml @ 125 mls/hr IV . Q8H [facility] Rx#:[id number] Sodium Chloride 0.9% 1, 1000 000 ml @ 250 mls/hr IV . Q4H [facility] Rx#:[id number] Oral 360 Output: Drainage 120 165 60 Left Abdomen 40 75 25 Right Abdomen 80 90 35 Urine 825 450 Estimated Blood Loss 100 Other: Voiding Method Indwelling Catheter - Labs CBC & Chem 7: 04/26/24 18:56 04/26/24 18:56 Labs: Abnormal Lab Results - Last 24 Hours (Table) 04/26/24 04/26/24 04/26/24 Range/Units 17:40 18:56 18:56 WBC 15.9 H (3.8-10.6) k/uL Hgb 10.8 L (11.4-16.0) gm/dL Neutrophils # 13.9 H (1.3-7.7) k/uL Lymphocytes # 0.8 L (1.0-4.8) k/uL Sodium 134 L (137-145) mmol/L BUN 26 H (7-17) mg/dL Glucose 170 H (74-99) mg/dL POC Glucose (mg/dL) 170 H (70-110) mg/dL AST 138 H (14-36) U/L ALT 69 H (4-34) U/L Total Protein 5.9 L (6.3-8.2) g/dL Albumin 3.4 L (3.5-5.0) g/dL 04/26/24 04/27/24 Range/Units 20:50 07:05 WBC (3.8-10.6) k/uL Hgb (11.4-16.0) gm/dL Neutrophils # (1.3-7.7) k/uL Lymphocytes # (1.0-4.8) k/uL Sodium (137-145) mmol/L BUN (7-17) mg/dL Glucose (74-99) mg/dL POC Glucose (mg/dL) 189 H 121 H (70-110) mg/dL AST (14-36) U/L ALT (4-34) U/L Total Protein (6.3-8.2) g/dL Albumin (3.5-5.0) g/dL
[2024-04-27 12:29] LABS: Glucose,Whole Blood 125 mg/dL (70-110)
[2024-04-27] MEDS: INSULIN ASPART (NovoLOG) 100 UNIT/ML VIAL SQ SCH (12:37)
[2024-04-27] MEDS: FAMOTIDINE 20 MG TAB PO SCH (13:02)
[2024-04-27 17:21] LABS: Glucose,Whole Blood 142 mg/dL (70-110)
[2024-04-27 20:07] LABS: Glucose,Whole Blood 190 mg/dL (70-110)
[2024-04-27] MEDS: traZODone HCL 50 MG TAB PO SCH (20:52)
[2024-04-27] MEDS: MIRTAZAPINE 15 MG TAB PO SCH (20:54)
[2024-04-27] MEDS: LOSARTAN 25 MG TAB PO SCH (20:54)
[2024-04-27] MEDS: ATORVASTATIN 10 MG TAB PO SCH (20:54)
[2024-04-27] MEDS: GABAPENTIN 300 MG CAP PO SCH (20:54)
[2024-04-27] MEDS: HYDROmorphone 0.5 MG/0.5 ML SYRINGE IVP PRN (20:55)
[2024-04-28 01:15] LABS: Glucose,Whole Blood 111 mg/dL (70-110)
[2024-04-28] MEDS: SODIUM CHLORIDE 0.9% 1,000 ML IV ONE ×2 (01:30→03:00)
--- NOTE | 2024-04-28 02:20 | CONS ---
CONSULTATION REASON FOR CONSULTATION: Advice regarding diabetes mellitus and other medical issues, requested by Orthopedic Surgery. HISTORY OF PRESENT ILLNESS: This is a 78-year-old woman with a past medical history of diabetes mellitus, dementia, underwent panniculectomy for panniculus. There is no history of any fever, or rigors. No history of headache, loss of consciousness, or seizures. The blood pressure is slightly low after surgery. After bolus fluids, the blood pressure is improving. There is no history of any fever, rigors, or chills. PAST MEDICAL HISTORY: Diabetes mellitus type 2, hypertension, hyperlipidemia. Dose and rest of medications noted. ALLERGIES: LANDY inhibitors. Rest of allergies noted. HOME MEDICATIONS: Reviewed, Desyrel. Rest of medications noted. FAMILY HISTORY: Could not be taken because of dementia. SOCIAL HISTORY: Could not be taken because of dementia. REVIEW OF SYSTEMS: Could not be taken because of dementia. PHYSICAL EXAMINATION: VITAL SIGNS: Pulse is 50, blood pressure 110/68, respirations 18. HEENT: Conjunctivae normal. NECK: No JVD. CARDIOVASCULAR: S1, S2. RESPIRATIONS: Breath sounds diminished at the bases. No rhonchi. No crackles. ABDOMEN: Soft, nontender. No mass. LEGS: No edema. NERVOUS SYSTEM: Nonfocal. LABORATORY DATA: Reviewed. ASSESSMENT: 1. Status post panniculectomy. 2. Mild postoperative hypotension. 3. History of hypertension. 4. Diabetes mellitus, type 2. 5. History of dementia. 6. History of liver disease. 7. History of seizure disorder. 8. History of vascular disorder. RECOMMENDATIONS AND DISCUSSION: This is a 78-year-old woman, who presented with multiple complex medical issues. I would recommend to continue current medications, continue symptomatic treatment. Resume the home medications. Hold off the blood pressure medications. Continue with IV fluids cautiously. DVT prophylaxis. We will follow the patient closely with you. I would also recommend a troponin check and EKG also for completion of baseline workup. MMODL / IJN: [id number] /
[2024-04-28 02:28] LABS: Anisocytosis Slight; Basophils % (A) 0 %; Eosinophils # (A) 0.2 k/uL (0-0.7); Eosinophils % (A) 5 %; Hypochromasia Slight; Lymphocytes # (A) 1.6 k/uL (1.0-4.8); Lymphocytes % (A) 33 %; MCH 27.1 pg (25.0-35.0); MCHC 31.8 g/dL (31.0-37.0); MCV 85.1 fL (80.0-100.0); Mean Platelet Volume 7.5; Monocytes # (A) 0.4 k/uL (0-1.0); Monocytes % (A) 8 %; Neutrophils # (A) 2.6 k/uL (1.3-7.7); Neutrophils % (A) 52 %; Platelet Count 127 k/uL (150-450); RBC 2.27 m/uL (3.80-5.40); RDW 16.1 % (11.5-15.5)
[2024-04-28 02:29] LABS: HCT 19.3 % (34.0-46.0); HGB 6.1 gm/dL (11.4-16.0)
[2024-04-28 03:38] LABS: Basophils % (A) 0 %; Eosinophils # (A) 0.3 k/uL (0-0.7); Eosinophils % (A) 5 %; Hypochromasia Moderate; Lymphocytes # (A) 1.6 k/uL (1.0-4.8); Lymphocytes % (A) 33 %; MCH 27.1 pg (25.0-35.0); MCHC 31.8 g/dL (31.0-37.0); MCV 85.2 fL (80.0-100.0); Mean Platelet Volume 7.9; Monocytes # (A) 0.4 k/uL (0-1.0); Monocytes % (A) 8 %; Neutrophils # (A) 2.5 k/uL (1.3-7.7); Neutrophils % (A) 51 %; Platelet Count 127 k/uL (150-450); RBC 2.12 m/uL (3.80-5.40); WBC 4.8 k/uL (3.8-10.6)
[2024-04-28 03:48] LABS: HCT 18.1 % (34.0-46.0); HGB 5.7 gm/dL (11.4-16.0)
[2024-04-28 04:07] LABS: ALT 23 U/L (4-34); AST 24 U/L (14-36); African American GFR (CKD) >90 (>60 ml/min/1.73 sqM); Alkaline Phosphatase 41 U/L (38-126); Anion Gap 4 mmol/L; Blood Urea Nitrogen 19 mg/dL (7-17); Calcium 7.2 mg/dL (8.4-10.2); Carbon Dioxide 22 mmol/L (22-30); Chloride 112 mmol/L (98-107); Glucose 96 mg/dL (74-99); Non-African American GFR(CKD) 82 (>60 ml/min/1.73 sqM); Potassium 4.1 mmol/L (3.5-5.1); Sodium 138 mmol/L (137-145); Total Bilirubin 0.2 mg/dL (0.2-1.3)
[2024-04-28] MEDS: SODIUM CHLORIDE 0.9% 500 ML 500 ML IV ONE (06:21)
[2024-04-28 07:25] LABS: Glucose,Whole Blood 59 mg/dL (70-110)
[2024-04-28 08:05] LABS: Glucose,Whole Blood 59 mg/dL (70-110)
[2024-04-28 08:45] LABS: Glucose,Whole Blood 141 mg/dL (70-110)
[2024-04-28] MEDS: FAMOTIDINE 20 MG TAB PO SCH (08:53)
[2024-04-28] MEDS: PANTOPRAZOLE 40 MG TABLET PO SCH (08:54)
[2024-04-28] MEDS: POTASSIUM CHLORIDE ER 10 MEQ TAB.ER.PRT PO SCH (08:54)
[2024-04-28] MEDS: metFORMIN 500 MG TAB PO SCH (08:54)
[2024-04-28] MEDS: polyethylene glycoL 3350 17 GM POWD.PACK PO SCH (08:54)
[2024-04-28 10:40] LABS: African American GFR (CKD) >90 (>60 ml/min/1.73 sqM); Anion Gap 5 mmol/L; Blood Urea Nitrogen 15 mg/dL (7-17); Calcium 7.9 mg/dL (8.4-10.2); Carbon Dioxide 21 mmol/L (22-30); Chloride 112 mmol/L (98-107); Non-African American GFR(CKD) 88 (>60 ml/min/1.73 sqM); Sodium 138 mmol/L (137-145)
[2024-04-28 10:45] LABS: Glucose 80 mg/dL (74-99)
[2024-04-28 12:47] LABS: Glucose,Whole Blood 69 mg/dL (70-110)
[2024-04-28 13:15] LABS: Glucose,Whole Blood 85 mg/dL (70-110)
--- NOTE | 2024-04-28 13:22 | P.PN ---
Subjective Progress Note Date: 04/28/24 SURGICAL PROGRESS NOTE CHIEF COMPLAINT: Panniculus HISTORY OF PRESENT ILLNESS: Patient is postop day #2 status post panniculectomy. Patient had a drop in her hemoglobin from 10.8-5.7. She received 2 units of blood. Repeat CBC pending. Patient reports pain is controlled. She is having flatus. Denies any nausea or vomiting. Patient with 2 LILLIE drains with sanguinous output. First LILLIE drain 40 mL output second LILLIE drain 90 mL output. Afebrile. Vital stable. WBC 4.8 Hgb 5.7 platelets 127. Patient denies any difficulty urinating. PHYSICAL EXAM: VITAL SIGNS: Reviewed. GENERAL: Well-developed in no acute distress. HEENT: No sclera icterus. Extraocular movements grossly intact. Moist buccal mucosa. Head is atraumatic, normocephalic. ABDOMEN: Soft. Nondistended. Tenderness at incision site. Dressing clean dry and intact. LILLIE drain sanguinous output. NEUROLOGIC: Alert and oriented. Cranial nerves II through XII grossly intact. ASSESSMENT: 1. 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 Acute blood loss anemia after surgery PLAN: -Agree with blood transfusion -Awaiting repeat hemoglobin -CBC ordered for a.m. -Discontinue Lovenox due to anemia. SCD ordered for DVT prophylaxis -Continue to strip LILLIE drains -Discontinue Bingham catheter -Encourage patient to ambulate -Continue regular diet -DVT prophylaxis SCD and GI prophylaxis Pepcid Physician Director Property note has been reviewed by physician. Signing provider agrees with the documented findings, assessment, and plan of care. Objective - Vital Signs Vital signs: Vital Signs Temp 97.6 F 04/28/24 12:44 Pulse 67 04/28/24 12:44 Resp 18 04/28/24 12:44 BP 126/76 04/28/24 12:44 Pulse Ox 96 04/28/24 12:44 FiO2 Intake & Output 04/27/24 04/28/24 04/28/24 18:59 06:59 18:59 Intake Total 700 3558 550 Output Total 167 160 730 Balance 533 6288 -180 Weight 82 kg Intake: Intake, IV Titration 3248 Amount Sodium Chloride 0.9% 1, 1250 000 ml @ 125 mls/hr IV . Q8H [facility] Rx#:[id number] Sodium Chloride 0.9% 1, 999 000 ml @ 999 mls/hr IV . Q1H1M [facility] Rx#:[id number] Sodium Chloride 0.9% 1, 999 000 ml @ 999 mls/hr IV . Q1H1M [facility] Rx#:[id number] Oral 700 240 Blood Product 310 310 Rc As-1 Unit 310 [id number] Rc As-1 Unit 0 310 [id number] Output: Drainage 167 60 130 Left Abdomen 67 20 40 Right Abdomen 100 40 90 Urine 100 600 Other: Voiding Method Indwelling Catheter Bedside Commode Bedside Commode # Voids 1 1 - Labs CBC & Chem 7: 04/28/24 03:28 04/28/24 10:08 Labs: Abnormal Lab Results - Last 24 Hours (Table) 04/27/24 04/27/24 04/28/24 Range/Units 17:17 20:05 01:11 RBC (3.80-5.40) m/uL Hgb (11.4-16.0) gm/dL Hct (34.0-46.0) % RDW (11.5-15.5) % Plt Count (150-450) k/uL Chloride (98-107) mmol/L Carbon Dioxide (22-30) mmol/L BUN (7-17) mg/dL POC Glucose (mg/dL) 142 H 190 H 111 H (70-110) mg/dL Calcium (8.4-10.2) mg/dL Total Protein (6.3-8.2) g/dL Albumin (3.5-5.0) g/dL Crossmatch 04/28/24 04/28/24 04/28/24 Range/Units 02:18 03:26 03:28 RBC 2.27 L 2.12 L (3.80-5.40) m/uL Hgb 6.1 L* D 5.7 L* (11.4-16.0) gm/dL Hct 19.3 L* 18.1 L* (34.0-46.0) % RDW 16.1 H 16.0 H (11.5-15.5) % Plt Count 127 L D 127 L (150-450) k/uL Chloride (98-107) mmol/L Carbon Dioxide (22-30) mmol/L BUN (7-17) mg/dL POC Glucose (mg/dL) (70-110) mg/dL Calcium (8.4-10.2) mg/dL Total Protein (6.3-8.2) g/dL Albumin (3.5-5.0) g/dL Crossmatch See Detail 04/28/24 04/28/24 04/28/24 Range/Units 03:28 07:24 08:03 RBC (3.80-5.40) m/uL Hgb (11.4-16.0) gm/dL Hct (34.0-46.0) % RDW (11.5-15.5) % Plt Count (150-450) k/uL Chloride 112 H (98-107) mmol/L Carbon Dioxide (22-30) mmol/L BUN 19 H (7-17) mg/dL POC Glucose (mg/dL) 59 L 59 L (70-110) mg/dL Calcium 7.2 L (8.4-10.2) mg/dL Total Protein 4.0 L (6.3-8.2) g/dL Albumin 2.0 L (3.5-5.0) g/dL Crossmatch 04/28/24 04/28/24 04/28/24 Range/Units 08:43 10:08 12:46 RBC (3.80-5.40) m/uL Hgb (11.4-16.0) gm/dL Hct (34.0-46.0) % RDW (11.5-15.5) % Plt Count (150-450) k/uL Chloride 112 H (98-107) mmol/L Carbon Dioxide 21 L (22-30) mmol/L BUN (7-17) mg/dL POC Glucose (mg/dL) 141 H 69 L (70-110) mg/dL Calcium 7.9 L (8.4-10.2) mg/dL Total Protein (6.3-8.2) g/dL Albumin (3.5-5.0) g/dL Crossmatch
[2024-04-28 14:31] LABS: Basophils % (A) 0 %; Eosinophils # (A) 0.4 k/uL (0-0.7); Eosinophils % (A) 7 %; HCT 30.8 % (34.0-46.0); Hypochromasia Slight; Lymphocytes # (A) 1.7 k/uL (1.0-4.8); Lymphocytes % (A) 31 %; MCH 28.1 pg (25.0-35.0); MCHC 32.2 g/dL (31.0-37.0); MCV 87.3 fL (80.0-100.0); Monocytes # (A) 0.4 k/uL (0-1.0); Monocytes % (A) 8 %; Neutrophils # (A) 2.9 k/uL (1.3-7.7); Neutrophils % (A) 52 %; Platelet Count 130 k/uL (150-450); RBC 3.53 m/uL (3.80-5.40); RDW 15.7 % (11.5-15.5); WBC 5.7 k/uL (3.8-10.6)
[2024-04-28 14:48] LABS: HGB 9.9 gm/dL (11.4-16.0)
[2024-04-28 17:42] LABS: Glucose,Whole Blood 53 mg/dL (70-110)
[2024-04-28 18:08] LABS: Glucose,Whole Blood 47 mg/dL (70-110)
[2024-04-28 18:22] LABS: Glucose,Whole Blood 65 mg/dL (70-110)
[2024-04-28 18:42] LABS: Glucose,Whole Blood 91 mg/dL (70-110)
[2024-04-28] MEDS: DEXTROSE 50% SYRINGE 50 ML IVP PRN (18:44)
[2024-04-28 19:13] LABS: Glucose,Whole Blood 103 mg/dL (70-110)
[2024-04-28 21:20] LABS: Glucose,Whole Blood 143 mg/dL (70-110)
[2024-04-28 23:10] LABS: Glucose,Whole Blood 119 mg/dL (70-110)
[2024-04-29 01:11] LABS: Glucose,Whole Blood 112 mg/dL (70-110)
--- NOTE | 2024-04-29 02:30 | PN ---
PROGRESS NOTE DATE OF SERVICE: 04/28/2024 SUBJECTIVE: This is a 78-year-old woman who was admitted after panniculectomy, had hypotension. The patient's hemoglobin was 5.7. The patient is being multiply transfused. The patient will be closely monitored at this time. PAST MEDICAL HISTORY: Reviewed. REVIEW OF SYSTEMS: Fourteen-point review is negative except as mentioned earlier. CURRENT MEDICATIONS: Reviewed include Tylenol. Rest of medication and doses are noted. PHYSICAL EXAMINATION: VITAL SIGNS: Pulse is 67, blood pressure 122/76, respirations 18. HEENT: Conjunctivae pale. CHEST: A few scattered rhonchi and crackles. ABDOMEN: Soft, status post surgery. LEGS: No edema. NERVOUS SYSTEM: Nonfocal. LABORATORY DATA: CO2 is 21, hemoglobin is 5.7. ASSESSMENT: 1. Status post panniculectomy. 2. Blood loss anemia. 3. Mild postoperative hypotension possibly secondary to blood loss and dehydration. 4. History of hypertension. 5. Diabetes mellitus, type 2. 6. Dementia. 7. History of liver disease. 8. History of seizure disorder. 9. History of vascular disorder. RECOMMENDATIONS: Recommend to continue current medications and continue symptomatic treatment. I recommend at least 2 units transfusion and monitor closely. Hold off the blood pressure medications. Repeat labs in the morning. Monitor blood pressure closely. Guarded prognosis. Further recommendations to follow. MMODL / IJN: [id number] /
[2024-04-29 03:15] LABS: Glucose,Whole Blood 91 mg/dL (70-110)
[2024-04-29 05:16] LABS: Glucose,Whole Blood 133 mg/dL (70-110)
[2024-04-29] MEDS: SODIUM CHLORIDE 0.9% 500 ML 500 ML IV ONE (06:36)
[2024-04-29 07:31] LABS: Glucose,Whole Blood 114 mg/dL (70-110)
[2024-04-29 08:38] LABS: Basophils # (A) 0.01 X 10*3/uL (0.00-0.10); Basophils % (A) 0.2 %; Eosinophils % (A) 8.5 %; HCT 25.9 % (37.2-46.3); HGB 8.3 g/dL (12.0-15.0); Lymphocytes % (A) 29.7 %; MCH 27.9 pg (27.0-32.0); MCV 87.2 FL (80.0-97.0); Mean Platelet Volume 10.5 FL (9.5-12.2); Monocytes # (A) 0.54 X 10*3/uL (0.20-1.00); Monocytes % (A) 11.5 %; NRBC Per 100 WBC 0 X 10*3/uL (0.00-0.01); Neutrophils # (A) 2.29 X 10*3/uL (1.80-7.70); Neutrophils % (A) 48.6 %; Platelet Count 122 X 10*3/uL (140-440); RBC 2.97 X 10*6/uL (4.10-5.20); RDW 15.9 % (11.5-14.5); WBC 4.71 X 10*3/uL (4.50-10.00)
[2024-04-29 08:50] LABS: BUN/Creat Ratio 9.67 Ratio (12.00-20.00); Blood Urea Nitrogen 5.8 mg/dL (9.0-27.0); Glucose 111 mg/dL (70-110)
[2024-04-29 08:51] LABS: ALT 20 U/L (8-44); AST 17 U/L (13-35); Albumin 2.5 g/dL (3.8-4.9); Albumin/Globulin Ratio 1.67 Ratio (1.60-3.17); Alkaline Phosphatase 48 U/L (41-126); Calcium 7.9 mg/dL (8.7-10.3); Carbon Dioxide 23.5 mmol/L (21.6-31.8); Chloride 110 mmol/L (96-109); Globulin 1.5 g/dL (1.6-3.3); Potassium 4.3 mmol/L (3.5-5.5); Sodium 143 mmol/L (135-145); Total Bilirubin 0.2 mg/dL (0.3-1.2)
[2024-04-29 09:05] LABS: Glucose,Whole Blood 104 mg/dL (70-110)
[2024-04-29 11:24] LABS: Glucose,Whole Blood 92 mg/dL (70-110)
[2024-04-29 12:54] LABS: Glucose,Whole Blood 71 mg/dL (70-110)
--- NOTE | 2024-04-29 14:03 | P.PN ---
Subjective Progress Note Date: 04/29/24 SURGICAL PROGRESS NOTE CHIEF COMPLAINT: Panniculus HISTORY OF PRESENT ILLNESS: Patient is postop day #3 status post panniculectomy. Patient is status post blood transfusion for hemoglobin of 5.7. Hemoglobin did go up to 9.9 and repeat hemoglobin today is 8.3. Patient does report abdominal pain. She denies any nausea or vomiting. She is tolerating diet. LILLIE drain with 50 mL sanguinous but getting subway car repairer output on the left and right 25 mL. Blood pressure has improved after blood transfusion and IV fluids Patient seen and examined with Dr. Madrigal PHYSICAL EXAM: VITAL SIGNS: Reviewed. GENERAL: Well-developed in no acute distress. ABDOMEN: Soft. Nondistended. Tenderness at incision site. Dressing clean dry and intact. LILLIE drain sanguinous output. NEUROLOGIC: Alert and oriented. Cranial nerves II through XII grossly intact. ASSESSMENT: 1. 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 Acute blood loss anemia after surgery PLAN: -Anticipate possible discharge tomorrow -Continue pain management -Encourage patient to ambulate -Repeat hemoglobin in a.m. -DVT prophylaxis SCD and GI prophylaxis Pepcid Physician Manager Car note has been reviewed by physician. Signing provider agrees with the documented findings, assessment, and plan of care. Objective - Vital Signs Vital signs: Vital Signs Temp 98 F 04/29/24 12:35 Pulse 75 04/29/24 12:35 Resp 18 04/29/24 12:35 BP 127/80 04/29/24 12:35 Pulse Ox 99 04/29/24 12:35 FiO2 Intake & Output 04/28/24 04/29/24 04/29/24 18:59 06:59 18:59 Intake Total 2050 1310 Output Total 1057 1030 875 Balance 993 280 -875 Weight 65.5 kg Intake: Oral 1740 1310 Blood Product 310 Rc As-1 Unit 310 [id number] Output: Drainage 207 130 75 Left Abdomen 72 40 50 Right Abdomen 135 90 25 Urine 850 900 800 Other: Voiding Method Bedside Commode Bedside Commode Bedside Commode # Voids 1 0 # Bowel Movements 1 1 - Labs CBC & Chem 7: 04/29/24 05:10 04/29/24 05:10 Labs: Abnormal Lab Results - Last 24 Hours (Table) 04/28/24 04/28/24 04/28/24 Range/Units 14:13 17:41 18:06 RBC 3.53 L (3.80-5.40) m/uL Hgb 9.9 L D (11.4-16.0) gm/dL Hct 30.8 L (34.0-46.0) % RDW 15.7 H (11.5-15.5) % Plt Count 130 L (150-450) k/uL Immature Gran # (0.00-0.04) X 10*3/uL Eosinophils # (0.04-0.35) X 10*3/uL Chloride (96-109) mmol/L BUN (9.0-27.0) mg/dL BUN/Creatinine Ratio (12.00-20.00) Ratio Glucose (70-110) mg/dL POC Glucose (mg/dL) 53 L 47 L* (70-110) mg/dL Calcium (8.7-10.3) mg/dL Total Bilirubin (0.3-1.2) mg/dL Total Protein (6.2-8.2) g/dL Albumin (3.8-4.9) g/dL Globulin (1.6-3.3) g/dL 04/28/24 04/28/24 04/28/24 Range/Units 18:21 21:19 23:08 RBC (3.80-5.40) m/uL Hgb (11.4-16.0) gm/dL Hct (34.0-46.0) % RDW (11.5-15.5) % Plt Count (150-450) k/uL Immature Gran # (0.00-0.04) X 10*3/uL Eosinophils # (0.04-0.35) X 10*3/uL Chloride (96-109) mmol/L BUN (9.0-27.0) mg/dL BUN/Creatinine Ratio (12.00-20.00) Ratio Glucose (70-110) mg/dL POC Glucose (mg/dL) 65 L 143 H 119 H (70-110) mg/dL Calcium (8.7-10.3) mg/dL Total Bilirubin (0.3-1.2) mg/dL Total Protein (6.2-8.2) g/dL Albumin (3.8-4.9) g/dL Globulin (1.6-3.3) g/dL 04/29/24 04/29/24 04/29/24 Range/Units 01:10 05:10 05:10 RBC 2.97 L (3.80-5.40) m/uL Hgb 8.3 L (11.4-16.0) gm/dL Hct 25.9 L (34.0-46.0) % RDW 15.9 H (11.5-15.5) % Plt Count 122 L (150-450) k/uL Immature Gran # 0.07 H (0.00-0.04) X 10*3/uL Eosinophils # 0.40 H (0.04-0.35) X 10*3/uL Chloride 110 H (96-109) mmol/L BUN 5.8 L (9.0-27.0) mg/dL BUN/Creatinine Ratio 9.67 L (12.00-20.00) Ratio Glucose 111 H (70-110) mg/dL POC Glucose (mg/dL) 112 H (70-110) mg/dL Calcium 7.9 L (8.7-10.3) mg/dL Total Bilirubin 0.2 L (0.3-1.2) mg/dL Total Protein 4.0 L (6.2-8.2) g/dL Albumin 2.5 L (3.8-4.9) g/dL Globulin 1.5 L (1.6-3.3) g/dL 04/29/24 04/29/24 Range/Units 05:14 07:29 RBC (3.80-5.40) m/uL Hgb (11.4-16.0) gm/dL Hct (34.0-46.0) % RDW (11.5-15.5) % Plt Count (150-450) k/uL Immature Gran # (0.00-0.04) X 10*3/uL Eosinophils # (0.04-0.35) X 10*3/uL Chloride (96-109) mmol/L BUN (9.0-27.0) mg/dL BUN/Creatinine Ratio (12.00-20.00) Ratio Glucose (70-110) mg/dL POC Glucose (mg/dL) 133 H 114 H (70-110) mg/dL Calcium (8.7-10.3) mg/dL Total Bilirubin (0.3-1.2) mg/dL Total Protein (6.2-8.2) g/dL Albumin (3.8-4.9) g/dL Globulin (1.6-3.3) g/dL
[2024-04-29 15:02] LABS: Glucose,Whole Blood 96 mg/dL (70-110)
[2024-04-29 15:30] LABS: INR 0.8 (<1.2); Prothrombin Time 9.6 sec (10.0-12.5)
[2024-04-29 17:15] LABS: Glucose,Whole Blood 114 mg/dL (70-110)
[2024-04-29 19:02] LABS: Glucose,Whole Blood 99 mg/dL (70-110)
[2024-04-29 22:54] LABS: Glucose,Whole Blood 108 mg/dL (70-110)
--- NOTE | 2024-04-30 04:54 | PN ---
PROGRESS NOTE DATE OF SERVICE: 04/29/2024 SUBJECTIVE: This is a 78-year-old woman, who was admitted with panniculectomy, also had blood-loss anemia. Hemoglobin today is 8.3. No chest pain. No palpitations. No fever. OBJECTIVE: VITAL SIGNS: Pulse is 75, blood pressure 120/72, respirations 18. CHEST: Clear. CARDIOVASCULAR: S1, S2. ABDOMEN: Soft, status post surgery. LEGS: No edema. NERVOUS SYSTEM: Nonfocal. LABORATORY DATA: Reviewed. ASSESSMENT: 1. Status post panniculectomy. 2. Acute blood loss anemia. 3. Mild postoperative hypotension possibly secondary to blood loss anemia and dehydration. 4. History of hypertension. 5. Diabetes mellitus, type 2. 6. Dementia. 7. History of liver disease. 8. Multiple complex medical issues. RECOMMENDATIONS: Recommend to continue current management and continue symptomatic treatment. Otherwise, I would also recommend PT, PTT, INR also to complete the workup. Further recommendations to follow. MMODL / IJN: [id number] /
[2024-04-30 07:22] LABS: Glucose,Whole Blood 89 mg/dL (70-110)
[2024-04-30 07:34] VITALS: BP 160/83; PULSE 63; RESP 16; TEMP 98.1
[2024-04-30 08:54] LABS: Basophils # (A) 0.01 X 10*3/uL (0.00-0.10); Basophils % (A) 0.2 %; Eosinophils % (A) 8.5 %; HCT 28.5 % (37.2-46.3); Lymphocytes # (A) 1.33 X 10*3/uL (0.90-5.00); Lymphocytes % (A) 28.4 %; MCH 26.9 pg (27.0-32.0); MCHC 31.6 g/dL (32.0-37.0); MCV 85.3 FL (80.0-97.0); Mean Platelet Volume 9.9 FL (9.5-12.2); Monocytes % (A) 12.8 %; NRBC Per 100 WBC 0 X 10*3/uL (0.00-0.01); Neutrophils % (A) 49.2 %; Platelet Count 156 X 10*3/uL (140-440); RBC 3.34 X 10*6/uL (4.10-5.20); WBC 4.68 X 10*3/uL (4.50-10.00)
[2024-04-30 09:00] LABS: Blood Urea Nitrogen 3.8 mg/dL (9.0-27.0); Glucose 82 mg/dL (70-110)
[2024-04-30 09:01] LABS: Calcium 8.3 mg/dL (8.7-10.3); Carbon Dioxide 28.8 mmol/L (21.6-31.8); Chloride 108 mmol/L (96-109); Potassium 4.1 mmol/L (3.5-5.5); Sodium 143 mmol/L (135-145)
--- NOTE | 2024-04-30 11:38 | P.DS ---
Providers Date of admission: 04/28/24 13:21 Expected date of discharge: 04/30/24 Attending physician: Nadir Madrigal Consults: 04/26/24 10:52 Consult Physician Routine Consulting Provider: Sepideh Stanley Consult Reason/Comments: Medical management Do you want consulting provider notified?: Yes Primary care physician: Stated None Hospital Course: Discharge diagnosis 1. 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 Acute blood loss anemia after surgery Hospital course This is a 78-year-old female with history of a large panniculus with chronic skin irritation and rashes. She is status post panniculectomy. She did have acute blood loss anemia after surgery requiring blood transfusion. Hemoglobin has improved and stabilized. Vitals are stable. She is afebrile. Denies any difficulty urinating. Her pain is controlled. She has been up and ambulating. She is tolerating diet. Incision site clean dry and intact. She is stable for discharge. Please refer to chart for any further details. Physician Weld Lay Out Worker note has been reviewed by physician. Signing provider agrees with the documented findings, assessment, and plan of care. Patient Condition at Discharge: Stable Plan - Discharge Summary Discharge Rx Participant: No New Discharge Prescriptions: Continue traZODone HCL [Desyrel] 75 mg PO HS Atorvastatin Calcium [Lipitor] 10 mg PO HS Omeprazole [PriLOSEC] 40 mg PO QAM metFORMIN HCL ER [Glucophage XR] 500 mg PO DAILY Acetaminophen Tab [Tylenol] 650 mg PO Q6HR PRN tab PRN Reason: Fever and/ or Mild Pain Artificial Tears-Hypromellose [Artificial Tear Drops] 1 drops BOTH EYES BID Furosemide [Lasix] 20 mg PO DAILY Gabapentin [Neurontin] 300 mg PO BID Mirtazapine [Remeron] 15 mg PO HS Divalproex Sodium [Depakote] 500 mg PO BID Potassium Chloride 10 meq PO DAILY oxyBUTYnin chloride [Ditropan XL] 5 mg PO BID Aspirin 81 mg PO DAILY ARIPiprazole [Abilify] 2 mg PO QAM DULoxetine HCL 40 mg PO QAM Lidocaine 5% Patch [Lidoderm 5% Patch] 1 patch TOPICAL DAILY Losartan [Cozaar] 25 mg PO HS Cholecalciferol [Vitamin D3 (25 Mcg = 1000 Iu)] 25 mcg PO DAILY polyethylene glycoL 3350 [Miralax] 17 gm PO DAILY Discharge Medication List traZODone HCL [Desyrel] 75 mg PO HS 06/01/14 [History] Atorvastatin Calcium [Lipitor] 10 mg PO HS 01/21/19 [History] Aspirin 81 mg PO DAILY 07/11/22 [History] Omeprazole [PriLOSEC] 40 mg PO QAM 07/11/22 [History] metFORMIN HCL ER [Glucophage XR] 500 mg PO DAILY 07/11/22 [History] oxyBUTYnin chloride [Ditropan XL] 5 mg PO BID 07/11/22 [History] Acetaminophen Tab [Tylenol] 650 mg PO Q6HR PRN tab 09/24/22 [Rx] ARIPiprazole [Abilify] 2 mg PO QAM 12/03/23 [History] Artificial Tears-Hypromellose [Artificial Tear Drops] 1 drops BOTH EYES BID 12/03/23 [History] DULoxetine HCL 40 mg PO QAM 12/03/23 [History] Furosemide [Lasix] 20 mg PO DAILY 12/03/23 [History] Gabapentin [Neurontin] 300 mg PO BID 12/03/23 [History] Lidocaine 5% Patch [Lidoderm 5% Patch] 1 patch TOPICAL DAILY 12/03/23 [History] Losartan [Cozaar] 25 mg PO HS 12/03/23 [History] Mirtazapine [Remeron] 15 mg PO HS 12/03/23 [History] Cholecalciferol [Vitamin D3 (25 Mcg = 1000 Iu)] 25 mcg PO DAILY 04/21/24 [History] Divalproex Sodium [Depakote] 500 mg PO BID 04/21/24 [History] Potassium Chloride 10 meq PO DAILY 04/21/24 [History] polyethylene glycoL 3350 [Miralax] 17 gm PO DAILY 04/21/24 [History] Follow up Appointment(s)/Referral(s): Nadir Madrigal MD [STAFF PHYSICIAN] - 1 Week Activity/Diet/Wound Care/Special Instructions: No lifting over 10 pounds Shower daily. No soaking or tub baths for 2 weeks Very light activity until you are reevaluated at your follow up appointment with your surgeon Keep a log of LILLIE drain output and bring with you to your follow-up appointment Milk/strip drains 2-3 times a day Discharge Disposition: HOME SELF-CARE
[2024-04-30 12:29] LABS: Glucose,Whole Blood 76 mg/dL (70-110)
--- NOTE | 2024-05-01 01:36 | PN ---
PROGRESS NOTE DATE OF SERVICE: 04/30/2024 SUBJECTIVE: This is a 78-year-old woman, who was admitted after panniculectomy, had blood-loss anemia. No chest pain. No palpitations. No fever. OBJECTIVE: VITAL SIGNS: Pulse is 76, blood pressure 118/70, respirations 18. CHEST: Clear to auscultation. CARDIOVASCULAR: S1, S2 normal. ABDOMEN: Status post surgery. LABORATORY DATA: Hemoglobin is 9. ASSESSMENT: 1. Status post panniculectomy. 2. Acute blood-loss anemia postoperatively. 3. Mild postoperative hypotension possibly secondary to blood loss anemia, and dehydration. 4. History of hypertension. 5. Diabetes mellitus, type 2. 6. Multiple complex medical issues. RECOMMENDATIONS AND DISCUSSION: Recommend to continue current medications, continue symptomatic treatment. Resume the home medications and Surgery to follow. Possible discharge to ECF. FLY / SATINDER: [id number] /
== END 2024-04-30 13:05 | DRG 623 ==
LOC: OR 06:38 → 5NMEDONC 10:44 → OR 04-28 13:21
PROVIDERS: ADMIT Surgery; ATTEND Surgery
PROC: 0JB80ZZ Excision of Abdomen Subcutaneous Tissue and Fascia, Open Approach (ICD-10-PCS; principal; 2024-04-26 08:25)
PROC: 30233N1 Transfusion of Nonautologous Red Blood Cells into Peripheral Vein, Percutaneous Approach (ICD-10-PCS; 2024-04-28)
DX: E65 Localized adiposity (principal); D62 Acute posthemorrhagic anemia; E11.9 Type 2 diabetes mellitus without complications; E78.5 Hyperlipidemia, unspecified; F03.90 Unspecified dementia, unspecified severity, without behavioral disturbance, psychotic disturbance, mood disturbance, and anxiety; I10 Essential (primary) hypertension; I95.81 Postprocedural hypotension; G40.909 Epilepsy, unspecified, not intractable, without status epilepticus; E86.0 Dehydration; K21.9 Gastro-esophageal reflux disease without esophagitis; Z79.82 Long term (current) use of aspirin; Z88.8 Allergy status to other drugs, medicaments and biological substances; Z79.84 Long term (current) use of oral hypoglycemic drugs; Z88.5 Allergy status to narcotic agent; Z79.899 Other long term (current) drug therapy; Z96.653 Presence of artificial knee joint, bilateral
CPT/HCPCS: 64999; 80048; 80053; 83036; 84484; 85025; 85610; 85730; 86850; 86900; 86901; 86920; 93005

== ENCOUNTER → 2025-01-11 | Outpatient (CLI) | payer MEDICARE, OTHER ==
[~2025-01-11] MED LIST changes: +IODINE/POTASSIUM IODIDE 14 ML BOTTLE ONE; -LACTATED RINGERS 1,000 ML IV SCH; -LIDOCAINE 1% (10MG/ML) FOR IV START INTRADERMA ONE; -LIDOCAINE 1% (10MG/ML) FOR IV START INTRADERMA PRN; -LIDOCAINE 2% INJ 20 MG/ML (2 ML VIAL) ONE; -PROPOFOL 10 MG/ML 20 ML VIAL IV ONE
--- NOTE | 2025-01-12 12:10 | NM ---
EXAMINATION TYPE: NM DatScan Brain SPECT DATE OF EXAM: 01/11/2025 COMPARISON: NONE CLINICAL INDICATION: Female, 79 years old with history of G20.C PARKINSONISM, UNSPECIFIED; TECHNIQUE: 10 drops of Lugol's solution was administered 1 hour prior to injection as a thyroid bloc marni agent. After the administration of 4.5 mCi I-123 Ioflupane DaTscan. Images obtained [address] injection. SPECT images of the brain were acquired with axial and coronal reconstructions. FINDINGS: There is normal symmetric uptake within the bilateral corpus striata. IMPRESSION: The findings are against a diagnosis of Parkinson disease or a Parkinsonian syndrome. Findings can be seen in normal individuals and also those with essential tremor. [facility], , 01/12/2025 12:07 PM
== END | disposition home or self-care (01) ==
LOC: RADNMMAIN 10:29
PROVIDERS: ATTEND Psychiatry & Neurology Neurology
DX: G20.C Parkinsonism, unspecified (principal)
CPT/HCPCS: 78803; A9584